=== PATIENT | male | born 2000 | race Caucasian/White ===

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

== ENCOUNTER 2022-05-17 11:51 | Inpatient (IN) | payer OTHER, SELFPAY ==
--- NOTE | ~2022-05-17 | CT_ITS ---
EXAMINATION: CT ABDOMEN AND PELVIS WITH CONTRAST CLINICAL INFORMATION: Abdominal pain, GI bleed COMPARISON: None TECHNIQUE: Multidetector volumetric images were obtained from the superior aspect of the liver through the pubic symphysis following administration 75 mL of Omnipaque 350 intravenous contrast. Sagittal and coronal reformatted images were obtained on the technologist's workstation. Oral contrast: No This CT examination was performed using dose optimization techniques as appropriate, variously including the following: *Automated exposure control *Adjustment of mA and/or kV according to patient size (this includes techniques or standardized protocols for targeted exams where dose is matched to indication/reason for exam; i.e. extremities or head) *Use of iterative reconstruction technique DLP: 277 mGy-cm FINDINGS: Significant respiratory motion limits exam particular evaluation of the upper abdominal solid organs and the lung bases. LUNG BASES: Unremarkable. ABDOMINAL AND PELVIC WALL: Unremarkable. LIVER AND BILIARY TREE: Unremarkable. GALLBLADDER: The gallbladder is inadequately evaluated due to motion, if any clinical concern for gallbladder pathology right upper quadrant ultrasound could be obtained. PANCREAS: Unremarkable. SPLEEN: Unremarkable. ADRENAL GLANDS: Unremarkable. KIDNEYS AND URETERS: Unremarkable. GASTROINTESTINAL TRACT: Moderate wall thickening involving the rectosigmoid colon raising suspicion for an infectious or inflammatory proctocolitis. No intraluminal contrast identified to suggest active bleeding however a multiphase exam would be more sensitive for evaluation of GI bleeding. The appendix is not identified however there are no focal right lower quadrant inflammatory changes to suggest appendicitis. VASCULAR: Unremarkable. LYMPH NODES/PERITONEUM: No lymphadenopathy. FREE FLUID: Small volume of free fluid in the pelvis. BLADDER: Unremarkable. PELVIC VISCERA: Unremarkable. OSSEOUS STRUCTURES: Unremarkable. CT/CT abdomen pelvis w IV con IMPRESSION: * Moderate wall thickening involving the rectosigmoid colon raising suspicion for an infectious or inflammatory colitis with associated small volume free fluid in the pelvis. No intraluminal contrast identified to suggest active bleeding however a multiphase exam would be more sensitive for evaluation of GI bleeding. * Significant respiratory motion limits exam particular evaluation of the upper abdominal solid organs and the lung bases. The gallbladder is inadequately evaluated due to motion, if any clinical concern for gallbladder pathology right upper quadrant ultrasound could be obtained.
[2022-05-17 12:01] VITALS: BP 111/72; PULSE 81; RESP 16; TEMP 36.8; O2SAT 100; BMI 15.4
--- NOTE | 2022-05-17 12:01 | ED.GIBLEED ---
HPI - GI Bleed General Chief complaint: Abdominal Pain Stated complaint: rectal bleeding, covid + Thursday Time Seen by Provider: 05/17/22 15:58 Related Data Home Medications Medication Instructions Recorded Confirmed aripiprazole 5 mg tablet 7.5 mg PO BID 02/19/21 05/17/22 clonidine HCl 0.1 mg tablet 0.2 mg PO BID 02/19/21 05/17/22 escitalopram oxalate 5 mg tablet 5 mg PO BID 02/19/21 05/17/22 methylphenidate HCl 54 mg 1 tab PO DAILY 02/19/21 05/17/22 tablet,extended release 24 hr (Concerta) lorazepam 0.5 mg tablet 1 tab PO TID 12/30/21 05/17/22 Allergies Allergy/AdvReac Type Severity Reaction Status Date / Time dog dander [DOGS] Allergy Unknown UNK Verified 05/17/22 12:01 milk [MILK] Allergy Unknown UNK Verified 05/17/22 12:01 PMFSH Past Medical History Medical History Autism Social History Social History Alcohol intake: never Patient Tobacco Use Status: Never used Tobacco Smoked in Last 30 Days: No Use of substances other than those prescribed or required for medical reasons: No Advance Directives: No Advance Directives Information Provided: Yes service: No Current occupational status: disabled Physical Exam Vital Signs: Vital Signs: Last Vital Signs Temp 97.5 F 05/18/22 08:23 Pulse 76 05/18/22 08:23 Resp 16 05/18/22 08:23 BP 105/66 05/18/22 08:23 Pulse Ox 100 05/18/22 08:23 O2 Del Method 05/18/22 08:23 BMI result Body Mass Index 15.4 Course Course Course Narrative: This is a rapid medical exam. Additional HPI/ROS/PE deferred to primary provider. 21 yo male diagnosed with COVID Thursday here with complaints of rectal bleeding noted this morning, has had diarrhea last few days. +abdominal pain (upper abdominal pain). No fevers, chills. Covid + with symptoms cough, rhinorrhea. No ac therapy. VSS. Will check labs, UA. Medications Administered Generic Name Dose Route Start Last Admin Trade Name Freq PRN Reason Stop Dose Admin Aripiprazole 7.5 mg 05/17/22 21:45 05/18/22 07:47 Aripiprazole 5 Mg Tablet PO Not Given BID DONNY Clonidine HCl 0.2 mg 05/17/22 21:45 05/18/22 07:47 Clonidine Hcl 0.2 Mg Tablet PO Not Given BID [facility] Protocol Escitalopram Oxalate 5 mg 05/17/22 21:45 05/18/22 07:47 Escitalopram Oxalate 5 Mg Tablet PO Not Given BID DONNY Metronidazole 500 mg in 100 mls @ 100 mls/hr 05/18/22 06:00 05/18/22 06:44 Flagyl IV Infused Q8H DONNY Infusion Dextrose/Lactated Ringer's 1,000 mls @ 60 mls/hr 05/18/22 07:45 05/18/22 10:42 [id number] IVCONT 60 mls/hr .[id number] DONNY Infusion Lorazepam 0.5 mg 05/17/22 21:45 05/18/22 07:47 Lorazepam 0.5 Mg Tablet PO Not Given TID DONNY Non-Formulary Medication 1 tab 05/18/22 09:00 05/18/22 07:47 Methylphenidate Hcl [Concerta] PO Not Given DAILY DONNY Pantoprazole Sodium 40 mg 05/18/22 06:30 05/18/22 05:40 Pantoprazole Sodium 40 Mg/10 Ml Vial IVPUSH 40 mg BID@0630,1630 DONNY Administration Sodium Chloride 3 ml 05/18/22 00:00 05/18/22 07:14 0.9 % Sodium Chloride Flush 3 Ml Syringe IVFLUSH Not Given QSHIFT [facility] Discontinued Medications Generic Name Dose Route Start Last Admin Trade Name Freq PRN Reason Stop Dose Admin Dextrose 25 gm 05/18/22 07:33 05/18/22 07:45 Dextrose 50 % 25 Gm/50 Ml Syringe IVPUSH 05/18/22 07:34 25 gm ONCE ONE Administration Ceftriaxone Sodium 1 gm/ 50 mls @ 100 mls/hr 05/17/22 19:56 05/17/22 20:53 Sodium Chloride IV 05/17/22 20:25 Infused ONCE ONE Infusion Metronidazole 500 mg in 100 mls @ 100 mls/hr 05/17/22 19:56 05/17/22 23:09 Flagyl IV 05/17/22 20:55 Infused ONCE ONE Infusion Sodium Chloride 250 mls @ 999 mls/hr 05/17/22 21:28 05/17/22 23:30 Ns IV 05/17/22 21:43 Infused .Q16M ONE Infusion Iohexol 100 ml 05/17/22 18:39 05/17/22 18:40 Iohexol 350 Mg/Ml 100 Ml Infus..Btl IV 05/17/22 18:40 75 ml ONCE ONE Administration Octreotide Acetate 50 mcg 05/17/22 17:20 05/17/22 18:00 Octreotide Acetate 100 Mcg/Ml Ampul IVPUSH 05/17/22 17:21 50 mcg ONCE ONE Administration Pantoprazole Sodium 40 mg 05/17/22 17:16 05/17/22 18:00 Pantoprazole Sodium 40 Mg/10 Ml Vial IVPUSH 05/17/22 17:17 40 mg ONCE ONE Administration MDM - GI Bleed Lab Data Result diagrams: 05/18/22 06:05 05/18/22 06:05 Labs: Lab Results 05/17/22 05/17/22 05/17/22 Range/Units 12: 12: 12:22 WBC 3.8 L (4.8-10.8) X10*3/uL RBC 4.10 L (4.60-5.80) X10*6/uL Hgb 10.9 L (14.0-18.0) g/dl Hct 33.5 L (42.0-52.0) % MCV 81.7 (80.0-98.0) fL MCH 26.6 L (27.0-33.0) pg MCHC 32.5 (31.0-36.0) g/dl RDW 14.4 (11.0-16.0) % Plt Count 312 D (160-400) X10*3/uL MPV 9.2 L (9.4-12.4) fL Immature Gran % (Auto) 0.3 (0.0-0.4) % Neut % (Auto) 52.4 (45-73) % Lymph % (Auto) 40.6 H (20-40) % [place] % (Auto) 5.6 (2-11) % Eos % (Auto) 0.3 (0-4) % Baso % (Auto) 0.8 (0-2) % Lymph # (Auto) 1.5 (1.2-4.9) X10*3/uL [place] # (Auto) 0.2 (0.1-1.2) X10*3/uL Eos # (Auto) 0.0 (0.0-0.4) X10*3/uL Baso # (Auto) 0.0 (0.0-0.2) X10*3/uL Abs Immat Gran (auto) 0.01 (0.00-0.03) X10*3/uL Absolute Neuts (auto) 2.0 (2.0-8.3) x10*3/uL Absolute Nucleated RBC 0.000 (0.0-0.012) X10*3/uL Nucleated RBC % (auto) 0.0 (0.0-0.2) /100WBC PT 12.7 (10.0-13.1) SEC INR 1.1 (0.9-1.1) Sodium 134 L (135-145) mmol/L Potassium 4.0 (3.3-5.1) mmol/L Chloride 99 (96-108) mmol/L Carbon Dioxide 30 H (22-29) mmol/L Anion Gap 9 L (12-20) BUN 15 (9-16) mg/dL Creatinine 0.81 (0.5-1.4) mg/dL Estim Creat Clear Calc 92.5 Estimated GFR > 60 Random Glucose 76 (60-115) mg/dL Calcium 9.4 (8.4-10.2) mg/dL Total Bilirubin 0.6 (0.0-1.0) mg/dL Direct Bilirubin 0.2 (0.0-0.5) mg/dL AST 20 (5-37) U/L ALT 17 (0-40) U/L Alkaline Phosphatase 86 (39-117) U/L Total Protein 7.1 (6.5-8.0) g/dL Albumin 4.3 (3.5-5.0) g/dL Urine Color Urine Appearance Urine pH (5.0-9.0) Ur Specific [place] (1.005-1.025) Urine Protein (Neg-Trace) mg/dL Urine Glucose (UA) (Negative) mg/dL Urine Ketones (Negative) mg/dL Urine Blood (Negative) Urine Nitrite (Negative) Ur Leukocyte Esterase (Negative) Stool Occult Blood (NEGATIVE) COVID-19 (KATYA) (Negative) COVID-19 [facility] Blood Type Antibody Screen 05/17/22 05/17/22 05/17/22 Range/Units 17:31 17:31 17:31 WBC (4.8-10.8) X10*3/uL RBC (4.60-5.80) X10*6/uL Hgb (14.0-18.0) g/dl Hct (42.0-52.0) % MCV (80.0-98.0) fL MCH (27.0-33.0) pg MCHC (31.0-36.0) g/dl RDW (11.0-16.0) % Plt Count (160-400) X10*3/uL MPV (9.4-12.4) fL Immature Gran % (Auto) (0.0-0.4) % Neut % (Auto) (45-73) % Lymph % (Auto) (20-40) % [place] % (Auto) (2-11) % Eos % (Auto) (0-4) % Baso % (Auto) (0-2) % Lymph # (Auto) (1.2-4.9) X10*3/uL [place] # (Auto) (0.1-1.2) X10*3/uL Eos # (Auto) (0.0-0.4) X10*3/uL Baso # (Auto) (0.0-0.2) X10*3/uL Abs Immat Gran (auto) (0.00-0.03) X10*3/uL Absolute Neuts (auto) (2.0-8.3) x10*3/uL Absolute Nucleated RBC (0.0-0.012) X10*3/uL Nucleated RBC % (auto) (0.0-0.2) /100WBC PT (10.0-13.1) SEC INR (0.9-1.1) Sodium (135-145) mmol/L Potassium (3.3-5.1) mmol/L Chloride (96-108) mmol/L Carbon Dioxide (22-29) mmol/L Anion Gap (12-20) BUN (9-16) mg/dL Creatinine (0.5-1.4) mg/dL Estim Creat Clear Calc Estimated GFR Random Glucose (60-115) mg/dL Calcium (8.4-10.2) mg/dL Total Bilirubin (0.0-1.0) mg/dL Direct Bilirubin (0.0-0.5) mg/dL AST (5-37) U/L ALT (0-40) U/L Alkaline Phosphatase (39-117) U/L Total Protein (6.5-8.0) g/dL Albumin (3.5-5.0) g/dL Urine Color Yellow Urine Appearance Clear Urine pH 7.0 (5.0-9.0) Ur Specific [place] 1.020 (1.005-1.025) Urine Protein Negative (Neg-Trace) mg/dL Urine Glucose (UA) Negative (Negative) mg/dL Urine Ketones Trace (Negative) mg/dL Urine Blood Negative (Negative) Urine Nitrite Negative (Negative) Ur Leukocyte Esterase Negative (Negative) Stool Occult Blood POSITIVE (NEGATIVE) COVID-19 (KATYA) Positive A (Negative) COVID-19 Clin Com See Note Blood Type Antibody Screen 05/17/22 Range/Units 17:40 WBC (4.8-10.8) X10*3/uL RBC (4.60-5.80) X10*6/uL Hgb (14.0-18.0) g/dl Hct (42.0-52.0) % MCV (80.0-98.0) fL MCH (27.0-33.0) pg MCHC (31.0-36.0) g/dl RDW (11.0-16.0) % Plt Count (160-400) X10*3/uL MPV (9.4-12.4) fL Immature Gran % (Auto) (0.0-0.4) % Neut % (Auto) (45-73) % Lymph % (Auto) (20-40) % [place] % (Auto) (2-11) % Eos % (Auto) (0-4) % Baso % (Auto) (0-2) % Lymph # (Auto) (1.2-4.9) X10*3/uL [place] # (Auto) (0.1-1.2) X10*3/uL Eos # (Auto) (0.0-0.4) X10*3/uL Baso # (Auto) (0.0-0.2) X10*3/uL Abs Immat Gran (auto) (0.00-0.03) X10*3/uL Absolute Neuts (auto) (2.0-8.3) x10*3/uL Absolute Nucleated RBC (0.0-0.012) X10*3/uL Nucleated RBC % (auto) (0.0-0.2) /100WBC PT (10.0-13.1) SEC INR (0.9-1.1) Sodium (135-145) mmol/L Potassium (3.3-5.1) mmol/L Chloride (96-108) mmol/L Carbon Dioxide (22-29) mmol/L Anion Gap (12-20) BUN (9-16) mg/dL Creatinine (0.5-1.4) mg/dL Estim Creat Clear Calc Estimated GFR Random Glucose (60-115) mg/dL Calcium (8.4-10.2) mg/dL Total Bilirubin (0.0-1.0) mg/dL Direct Bilirubin (0.0-0.5) mg/dL AST (5-37) U/L ALT (0-40) U/L Alkaline Phosphatase (39-117) U/L Total Protein (6.5-8.0) g/dL Albumin (3.5-5.0) g/dL Urine Color Urine Appearance Urine pH (5.0-9.0) Ur Specific [place] (1.005-1.025) Urine Protein (Neg-Trace) mg/dL Urine Glucose (UA) (Negative) mg/dL Urine Ketones (Negative) mg/dL Urine Blood (Negative) Urine Nitrite (Negative) Ur Leukocyte Esterase (Negative) Stool Occult Blood (NEGATIVE) COVID-19 (KATYA) (Negative) COVID-19 Clin Com Blood Type O Positive Antibody Screen NEGATIVE Discharge Plan Discharge Clinical Impression: Colitis Patient Disposition: Admitted As Inpatient
[2022-05-17 12:27] LABS: MANUAL DIFF FLAG NO
[2022-05-17 12:31] LABS: Basophils Percent Auto 0.8 % (0-2); Eosinophils Percent Auto 0.3 % (0-4); Hematocrit 33.5 % (42.0-52.0); Hemoglobin 10.9 g/dl (14.0-18.0); Imm Gran Abs Auto 0.01 X10*3/uL (0.00-0.03); Imm Gran Pct Auto 0.3 % (0.0-0.4); Lymphocytes Absolute Auto 1.5 X10*3/uL (1.2-4.9); Lymphocytes Percent Auto 40.6 % (20-40); Mean Corpuscular HGB Conc 32.5 g/dl (31.0-36.0); Mean Corpuscular Hemoglobin 26.6 pg (27.0-33.0); Mean Corpuscular Volume 81.7 fL (80.0-98.0); Mean Platelet Volume 9.2 fL (9.4-12.4); Monocytes Absolute Auto 0.2 X10*3/uL (0.1-1.2); Monocytes Percent Auto 5.6 % (2-11); Neutrophils Percent Auto 52.4 % (45-73); Platelet Count 312 X10*3/uL (160-400); Red Cell Distribution Width 14.4 % (11.0-16.0); White Blood Count 3.8 X10*3/uL (4.8-10.8)
[2022-05-17 12:36] LABS: INTERNATIONAL NORM RATIO 1.1 (0.9-1.1); Prothrombin Time 12.7 SEC (10.0-13.1)
[2022-05-17 12:55] LABS: Alanine Aminotransferase 17 U/L (0-40); Albumin Level 4.3 g/dL (3.5-5.0); Alkaline Phosphatase 86 U/L (39-117); Anion Gap 9 (12-20); Aspartate Amino Transferase 20 U/L (5-37); Bilirubin Direct 0.2 mg/dL (0.0-0.5); Bilirubin Total 0.6 mg/dL (0.0-1.0); Blood Urea Nitrogen 15 mg/dL (9-16); Calcium 9.4 mg/dL (8.4-10.2); Carbon Dioxide 30 mmol/L (22-29); Chloride 99 mmol/L (96-108); Creatinine Clr Calc Pharmacy 92.5; Estimated Glomerular Filt Rate > 60; Glucose Random 76 mg/dL (60-115); Sodium 134 mmol/L (135-145); Total Protein 7.1 g/dL (6.5-8.0)
--- NOTE | 2022-05-17 17:17 | ED.ABDPAIN ---
HPI - Abdominal Pain General Chief Complaint: Abdominal Pain Stated Complaint: rectal bleeding, covid + Thursday Time Seen by Provider: 05/17/22 15:58 History of Present Illness HPI narrative: Patient is a 21-year-old male with a history of marked his arm. Tested positive for COVID on Thursday. Coughing symptoms actually improved. Since yesterday patient noticed diarrhea. This morning started having bloody diarrhea. Was blood clot. Mom stated multiple episodes. Generalized malaise weakness. No history of GI bleed in the past. Related Data Home Medications Medication Instructions Recorded Confirmed aripiprazole 5 mg tablet 7.5 mg PO BID 02/19/21 05/17/22 clonidine HCl 0.1 mg tablet 0.2 mg PO BID 02/19/21 05/17/22 escitalopram oxalate 5 mg tablet 5 mg PO BID 02/19/21 05/17/22 methylphenidate HCl 54 mg 1 tab PO DAILY 02/19/21 05/17/22 tablet,extended release 24 hr (Concerta) lorazepam 0.5 mg tablet 1 tab PO TID 12/30/21 05/17/22 Allergies Allergy/AdvReac Type Severity Reaction Status Date / Time Chocolate Allergy Unknown Hives Unverified 05/17/22 12:01 dog dander [DOGS] Allergy Unknown UNK Verified 05/17/22 12:01 milk [MILK] Allergy Unknown UNK Verified 05/17/22 12:01 Review of Systems Review of Systems Positive generalized malaise. Positive bloody stool positive cough Yes all other systems are reviewed and are negative [facility] Social History Social History Alcohol intake: never Patient Tobacco Use Status: Never used Tobacco Smoked in Last 30 Days: No Use of substances other than those prescribed or required for medical reasons: No Advance Directives: No Advance Directives Information Provided: Yes Physical Exam ED Vital Signs: Vital Signs - 24 hr 05/17/22 12:01 05/17/22 17:18 05/17/22 19:55 Temperature 98.2 F 98.2 F 97.9 F Pulse Rate 81 87 86 Respiratory Rate 16 16 20 Blood Pressure 111/72 117/84 117/77 Pulse Oximetry 100 100 Oxygen Delivery Method Room Air Room Air Room Air BMI result Body Mass Index 15.4 Appearance: Alert. Oriented X3. No acute distress. Eyes: Pupils equal, round and reactive to light. ENT: Pharynx normal. Neck: Normal inspection. Neck supple. No lymph nodes noted. No crepitus CVS: Normal heart rate and rhythm. Pulses normal. Normal S1 and S2 Respiratory: No respiratory distress. Breath sounds normal. No Wheezing. No rales Abdomen: Soft and nontender. No rigidity. No distention. good BS x4 Rectal exam done with tech present grossly bloody stool. Skin: Skin warm and dry. Normal skin color. Normal skin turgor. Extremities: No lower extremity edema. Neurovascular intact to all extremities. No Lacerations. No Rash Neuro: Oriented X 3. No motor deficit. No sensory deficit. Moving all extermities. No slurred speech Medications Administered Discontinued Medications Generic Name Dose Route Start Last Admin Trade Name Freq PRN Reason Stop Dose Admin Iohexol 100 ml 05/17/22 18:39 05/17/22 18:40 Iohexol 350 Mg/Ml 100 Ml Infus..Btl IV 05/17/22 18:40 75 ml ONCE ONE Administration Octreotide Acetate 50 mcg 05/17/22 17:20 05/17/22 18:00 Octreotide Acetate 100 Mcg/Ml Ampul IVPUSH 05/17/22 17:21 50 mcg ONCE ONE Administration Pantoprazole Sodium 40 mg 05/17/22 17:16 05/17/22 18:00 Pantoprazole Sodium 40 Mg/10 Ml Vial IVPUSH 05/17/22 17:17 40 mg ONCE ONE Administration MDM - Abdominal Pain MDM Narrative Medical decision making narrative: Positive generalized malaise weakness significant bleeding as per the picture shown by mom. Patient had multiple episodes of dark red blood with a funny smell. Question upper GI bleed. No history of alcohol use. Denies using any NSAIDs. Will start patient on a PPI nevertheless. CT scan of the abdomen pending. Will most likely require admission. CT consistent with colitis. Patient to be admitted. Significant drop in hemoglobin from baseline 14-10.9. Will need further monitoring. Rocephin and Flagyl started. Case discussed with hospitalist team for admission. Lab Data Result diagrams: 05/17/22 12:21 05/17/22 12:22 Labs: Lab Results 05/17/22 05/17/22 05/17/22 Range/Units 12:21 12:22 12:22 WBC 3.8 L (4.8-10.8) X10*3/uL RBC 4.10 L (4.60-5.80) X10*6/uL Hgb 10.9 L (14.0-18.0) g/dl Hct 33.5 L (42.0-52.0) % MCV 81.7 (80.0-98.0) fL MCH 26.6 L (27.0-33.0) pg MCHC 32.5 (31.0-36.0) g/dl RDW 14.4 (11.0-16.0) % Plt Count 312 D (160-400) X10*3/uL MPV 9.2 L (9.4-12.4) fL Immature Gran % (Auto) 0.3 (0.0-0.4) % Neut % (Auto) 52.4 (45-73) % Lymph % (Auto) 40.6 H (20-40) % [place] % (Auto) 5.6 (2-11) % Eos % (Auto) 0.3 (0-4) % Baso % (Auto) 0.8 (0-2) % Lymph # (Auto) 1.5 (1.2-4.9) X10*3/uL [place] # (Auto) 0.2 (0.1-1.2) X10*3/uL Eos # (Auto) 0.0 (0.0-0.4) X10*3/uL Baso # (Auto) 0.0 (0.0-0.2) X10*3/uL Abs Immat Gran (auto) 0.01 (0.00-0.03) X10*3/uL Absolute Neuts (auto) 2.0 (2.0-8.3) x10*3/uL Absolute Nucleated RBC 0.000 (0.0-0.012) X10*3/uL Nucleated RBC % (auto) 0.0 (0.0-0.2) /100WBC PT 12.7 (10.0-13.1) SEC INR 1.1 (0.9-1.1) Sodium 134 L (135-145) mmol/L Potassium 4.0 (3.3-5.1) mmol/L Chloride 99 (96-108) mmol/L Carbon Dioxide 30 H (22-29) mmol/L Anion Gap 9 L (12-20) BUN 15 (9-16) mg/dL Creatinine 0.81 (0.5-1.4) mg/dL Estim Creat Clear Calc 92.5 Estimated GFR > 60 Random Glucose 76 (60-115) mg/dL Calcium 9.4 (8.4-10.2) mg/dL Total Bilirubin 0.6 (0.0-1.0) mg/dL Direct Bilirubin 0.2 (0.0-0.5) mg/dL AST 20 (5-37) U/L ALT 17 (0-40) U/L Alkaline Phosphatase 86 (39-117) U/L Total Protein 7.1 (6.5-8.0) g/dL Albumin 4.3 (3.5-5.0) g/dL Urine Color Urine Appearance Urine pH (5.0-9.0) Ur Specific [place] (1.005-1.025) Urine Protein (Neg-Trace) mg/dL Urine Glucose (UA) (Negative) mg/dL Urine Ketones (Negative) mg/dL Urine Blood (Negative) Urine Nitrite (Negative) Ur Leukocyte Esterase (Negative) Stool Occult Blood (NEGATIVE) COVID-19 (KATYA) (Negative) COVID-19 Clin Com Blood Type Antibody Screen 05/17/22 05/17/22 05/17/22 Range/Units 17:31 17:31 17:31 WBC (4.8-10.8) X10*3/uL RBC (4.60-5.80) X10*6/uL Hgb (14.0-18.0) g/dl Hct (42.0-52.0) % MCV (80.0-98.0) fL MCH (27.0-33.0) pg MCHC (31.0-36.0) g/dl RDW (11.0-16.0) % Plt Count (160-400) X10*3/uL MPV (9.4-12.4) fL Immature Gran % (Auto) (0.0-0.4) % Neut % (Auto) (45-73) % Lymph % (Auto) (20-40) % [place] % (Auto) (2-11) % Eos % (Auto) (0-4) % Baso % (Auto) (0-2) % Lymph # (Auto) (1.2-4.9) X10*3/uL [place] # (Auto) (0.1-1.2) X10*3/uL Eos # (Auto) (0.0-0.4) X10*3/uL Baso # (Auto) (0.0-0.2) X10*3/uL Abs Immat Gran (auto) (0.00-0.03) X10*3/uL Absolute Neuts (auto) (2.0-8.3) x10*3/uL Absolute Nucleated RBC (0.0-0.012) X10*3/uL Nucleated RBC % (auto) (0.0-0.2) /100WBC PT (10.0-13.1) SEC INR (0.9-1.1) Sodium (135-145) mmol/L Potassium (3.3-5.1) mmol/L Chloride (96-108) mmol/L Carbon Dioxide (22-29) mmol/L Anion Gap (12-20) BUN (9-16) mg/dL Creatinine (0.5-1.4) mg/dL Estim Creat Clear Calc Estimated GFR Random Glucose (60-115) mg/dL Calcium (8.4-10.2) mg/dL Total Bilirubin (0.0-1.0) mg/dL Direct Bilirubin (0.0-0.5) mg/dL AST (5-37) U/L ALT (0-40) U/L Alkaline Phosphatase (39-117) U/L Total Protein (6.5-8.0) g/dL Albumin (3.5-5.0) g/dL Urine Color Yellow Urine Appearance Clear Urine pH 7.0 (5.0-9.0) Ur Specific [place] 1.020 (1.005-1.025) Urine Protein Negative (Neg-Trace) mg/dL Urine Glucose (UA) Negative (Negative) mg/dL Urine Ketones Trace (Negative) mg/dL Urine Blood Negative (Negative) Urine Nitrite Negative (Negative) Ur Leukocyte Esterase Negative (Negative) Stool Occult Blood POSITIVE (NEGATIVE) COVID-19 (KATYA) Positive A (Negative) COVID-19 Clin Com See Note Blood Type Antibody Screen 05/17/22 Range/Units 17:40 WBC (4.8-10.8) X10*3/uL RBC (4.60-5.80) X10*6/uL Hgb (14.0-18.0) g/dl Hct (42.0-52.0) % MCV (80.0-98.0) fL MCH (27.0-33.0) pg MCHC (31.0-36.0) g/dl RDW (11.0-16.0) % Plt Count (160-400) X10*3/uL MPV (9.4-12.4) fL Immature Gran % (Auto) (0.0-0.4) % Neut % (Auto) (45-73) % Lymph % (Auto) (20-40) % [place] % (Auto) (2-11) % Eos % (Auto) (0-4) % Baso % (Auto) (0-2) % Lymph # (Auto) (1.2-4.9) X10*3/uL [place] # (Auto) (0.1-1.2) X10*3/uL Eos # (Auto) (0.0-0.4) X10*3/uL Baso # (Auto) (0.0-0.2) X10*3/uL Abs Immat Gran (auto) (0.00-0.03) X10*3/uL Absolute Neuts (auto) (2.0-8.3) x10*3/uL Absolute Nucleated RBC (0.0-0.012) X10*3/uL Nucleated RBC % (auto) (0.0-0.2) /100WBC PT (10.0-13.1) SEC INR (0.9-1.1) Sodium (135-145) mmol/L Potassium (3.3-5.1) mmol/L Chloride (96-108) mmol/L Carbon Dioxide (22-29) mmol/L Anion Gap (12-20) BUN (9-16) mg/dL Creatinine (0.5-1.4) mg/dL Estim Creat Clear Calc Estimated GFR Random Glucose (60-115) mg/dL Calcium (8.4-10.2) mg/dL Total Bilirubin (0.0-1.0) mg/dL Direct Bilirubin (0.0-0.5) mg/dL AST (5-37) U/L ALT (0-40) U/L Alkaline Phosphatase (39-117) U/L Total Protein (6.5-8.0) g/dL Albumin (3.5-5.0) g/dL Urine Color Urine Appearance Urine pH (5.0-9.0) Ur Specific [place] (1.005-1.025) Urine Protein (Neg-Trace) mg/dL Urine Glucose (UA) (Negative) mg/dL Urine Ketones (Negative) mg/dL Urine Blood (Negative) Urine Nitrite (Negative) Ur Leukocyte Esterase (Negative) Stool Occult Blood (NEGATIVE) COVID-19 (KATYA) (Negative) COVID-19 Clin Com Blood Type O Positive Antibody Screen NEGATIVE Discharge Plan Discharge Clinical Impression: Colitis Patient Disposition: Admitted As Inpatient Prescriptions: No Action clonidine HCl 0.1 mg tablet 0.2 mg PO BID Rx Instructions: 1/2 tablet at 0830 and 1530, 2 tablets at bedtime methylphenidate HCl [Concerta] 54 mg tablet extended release 24hr 1 tab PO DAILY aripiprazole 5 mg tablet 7.5 mg PO BID Rx Instructions: total daily dose: 15 mg (7.5 mg bid) escitalopram oxalate 5 mg tablet 5 mg PO BID lorazepam 0.5 mg tablet 1 tab PO TID
[2022-05-17 17:18] VITALS: BP 117/84; PULSE 87; RESP 16; TEMP 36.8; O2SAT 100
[2022-05-17 17:42] LABS: Appearance Urine Clear; Color Urine Yellow; Glucose Urine UA Negative (Negative); Leukocyte Esterase Urine Negative (Negative); Nitrite Urine Negative (Negative); OBS Int Ctl Valid YES; OBS1 POSITIVE (NEGATIVE); Urine Blood Negative (Negative); Urine Ketones Trace mg/dL (Negative); Urine Protein Negative (Neg-Trace)
[2022-05-17 17:51] LABS: COVID-19 Test Positive (Negative); IDNOW Serial# 16C4AD1C
[2022-05-17] MEDS: Octreotide Acetate 100 MCG/ML AMPUL 50 MCG IVPUSH (18:00)
[2022-05-17] MEDS: Pantoprazole Sodium 40 MG/10 ML VIAL IVPUSH (18:00)
[2022-05-17] MEDS: iohexoL 350 MG/ML 100 ML INFUS..BTL IV (18:40)
--- NOTE | 2022-05-17 19:43 | PC.NURSE ---
med rec complete.
[2022-05-17 19:55] VITALS: BP 117/77; PULSE 86; RESP 20; TEMP 36.6
[2022-05-17] MEDS: cefTRIAXone sodium 1 GM in 0.9 % Sodium Chloride 50 ML IV (20:17)
[2022-05-17] MEDS: metroNIDAZOLE/NS 500 MG/100 ML PIGGYBACK 100 MG IV (20:51)
[2022-05-17 21:07] VITALS: BP 113/71; PULSE 79; RESP 16; TEMP 36.7; O2SAT 96
--- NOTE | 2022-05-17 21:21 | PM.IMHP ---
History of Present Illness Date of Service: 05/17/22 Chief Complaint: GI bleed This is a 21-year-old male with pertinent history of autism with behavioral disturbances, who was brought to the emergency department by his mother for evaluation of bleeding per rectum. As per the mother, patient tested positive for COVID-19 on Thursday. His fever, chills and upper respiratory symptoms resolved over the course of 2-3 days. Patient started having abdominal discomfort, right upper quadrant, intermittent and without any relieving or aggravating factors on the day of presentation. It was associated with bleeding per rectum. No history of similar complaints in the past. Does not take NSAIDs for pain chronically. Never has had a GI scope. Patient denies chest discomfort, palpitation, shortness of breath, changes in urinary habits In the emergency department stool occult blood test was positive. Imaging was concerning for colitis. Review of Systems Constitutional: Constitutional: Reports fatigue and Reports malaise Cardiovascular: Cardiovascular: Reports no additional cardiovascular complaints Respiratory: Respiratory: Reports no additional respiratory complaints Gastrointestinal: Gastrointestinal: Reports hematochezia and Reports loose stools Endocrine: Endocrine: Reports fatigue [facility] Medical History Autism Social History Alcohol intake: never Patient Tobacco Use Status: Never used Tobacco Smoked in Last 30 Days: No Use of substances other than those prescribed or required for medical reasons: No Advance Directives: No Advance Directives Information Provided: Yes Meds Allergies Allergy/AdvReac Type Severity Reaction Status Date / Time dog dander [DOGS] Allergy Unknown UNK Verified 05/17/22 12:01 milk [MILK] Allergy Unknown UNK Verified 05/17/22 12:01 Active Medications: Current Medications Acetaminophen (Acetaminophen 325 Mg Tablet) 650 mg PO Q6H PRN PRN Reason: Pain, Mild (Pain Scale 1-3) Melatonin (Melatonin 3 Mg Tablet) 6 mg PO BEDTIME PRN PRN Reason: Insomnia Ondansetron HCl (Ondansetron Hcl 4 Mg/2 Ml Vial) 4 mg IVPUSH Q8H PRN PRN Reason: Nausea and Vomiting Pantoprazole Sodium (Pantoprazole Sodium 40 Mg/10 Ml Vial) 40 mg IVPUSH BID@0630,1630 [facility] Pharmacy Consult (Consult Rx Perform Med Rec) 1 each MISCELLANE ONCE PRN PRN Reason: Consult order Sodium Chloride (0.9 % Sodium Chloride Flush 3 Ml Syringe) 3 ml IVFLUSH QSHIFT [facility] Home Medications Medication Instructions Recorded Confirmed Last Taken Type aripiprazole 5 mg tablet 7.5 mg PO BID 02/19/21 05/17/22 12/30/21 History clonidine HCl 0.1 mg tablet 0.2 mg PO BID 02/19/21 05/17/22 12/29/21 History escitalopram oxalate 5 mg tablet 5 mg PO BID 02/19/21 05/17/22 12/30/21 History methylphenidate HCl 54 mg 1 tab PO DAILY 02/19/21 05/17/22 12/30/21 History tablet,extended release 24 hr (Concerta) lorazepam 0.5 mg tablet 1 tab PO TID 12/30/21 05/17/22 12/30/21 History Physical Exam Vital Signs and Narrative: Vital Signs: Last Vital Signs Temp 98.1 F 05/17/22 21:07 Pulse 79 05/17/22 21:07 Resp 16 05/17/22 21:07 BP 113/71 05/17/22 21:07 Pulse Ox 96 05/17/22 21:07 O2 Del Method 05/17/22 21:07 BMI result Body Mass Index 15.4 Young male lying in bed in no distress Neck supple, no JVD Regular rate and rhythm, S1-S2 heard Regular breath sounds bilaterally, no wheezing or crackles appreciated Abdomen with right upper quadrant tenderness, no guarding, no rigidity, no rebound tenderness Patient is awake, alert and oriented to place and person ; no focal motor deficit Psych: Normal mood No pedal edema Results Labs CBC and Chem 7: 05/17/22 12:21 05/17/22 12:22 Labs: Laboratory Results - last 24 hr 05/17/22 05/17/22 05/17/22 12: 12:22 12:22 MCV 81.7 MCH 26.6 L MCHC 32.5 RDW 14.4 Plt Count 312 D MPV 9.2 L Immature Gran % (Auto) 0.3 Neut % (Auto) 52.4 Lymph % (Auto) 40.6 H [place] % (Auto) 5.6 Eos % (Auto) 0.3 Baso % (Auto) 0.8 Lymph # (Auto) 1.5 Hoke # (Auto) 0.2 Eos # (Auto) 0.0 Baso # (Auto) 0.0 Abs Immat Gran (auto) 0.01 Absolute Neuts (auto) 2.0 Absolute Nucleated RBC 0.000 Nucleated RBC % (auto) 0.0 PT 12.7 INR 1.1 Anion Gap 9 L Estim Creat Clear Calc 92.5 Estimated GFR > 60 Random Glucose 76 Calcium 9.4 Total Bilirubin 0.6 Direct Bilirubin 0.2 AST 20 ALT 17 Alkaline Phosphatase 86 Total Protein 7.1 Albumin 4.3 Urine Color Urine Appearance Urine pH Ur Specific [place] Urine Protein Urine Glucose (UA) Urine Ketones Urine Blood Urine Nitrite Ur Leukocyte Esterase Stool Occult Blood COVID-19 (KATYA) COVID-[employer] Blood Type Antibody Screen 05/17/22 05/17/22 05/17/22 17:31 17:31 17:31 MCV MCH MCHC RDW Plt Count MPV Immature Gran % (Auto) Neut % (Auto) Lymph % (Auto) Hoke % (Auto) Eos % (Auto) Baso % (Auto) Lymph # (Auto) Hoke # (Auto) Eos # (Auto) Baso # (Auto) Abs Immat Gran (auto) Absolute Neuts (auto) Absolute Nucleated RBC Nucleated RBC % (auto) PT INR Anion Gap Estim Creat Clear Calc Estimated GFR Random Glucose Calcium Total Bilirubin Direct Bilirubin AST ALT Alkaline Phosphatase Total Protein Albumin Urine Color Yellow Urine Appearance Clear Urine pH 7.0 Ur Specific [place] 1.020 Urine Protein Negative Urine Glucose (UA) Negative Urine Ketones Trace Urine Blood Negative Urine Nitrite Negative Ur Leukocyte Esterase Negative Stool Occult Blood POSITIVE COVID-19 (KATYA) Positive A COVID-19 [employer] See Note Blood Type Antibody Screen 05/17/22 17:40 MCV MCH MCHC RDW Plt Count MPV Immature Gran % (Auto) Neut % (Auto) Lymph % (Auto) Hoke % (Auto) Eos % (Auto) Baso % (Auto) Lymph # (Auto) [place] # (Auto) Eos # (Auto) Baso # (Auto) Abs Immat Gran (auto) Absolute Neuts (auto) Absolute Nucleated RBC Nucleated RBC % (auto) PT INR Anion Gap Estim Creat Clear Calc Estimated GFR Random Glucose Calcium Total Bilirubin Direct Bilirubin AST ALT Alkaline Phosphatase Total Protein Albumin Urine Color Urine Appearance Urine pH Ur Specific [place] Urine Protein Urine Glucose (UA) Urine Ketones Urine Blood Urine Nitrite Ur Leukocyte Esterase Stool Occult Blood COVID-19 (KATYA) COVID-19 Clin Com Blood Type O Positive Antibody Screen NEGATIVE Imaging Radiologist's Impressions: Impressions Abdomen/Pelvis CT 05/17/22 18:52 IMPRESSION: * Moderate wall thickening involving the rectosigmoid colon raising suspicion for an infectious or inflammatory colitis with associated small volume free fluid in the pelvis. No intraluminal contrast identified to suggest active bleeding however a multiphase exam would be more sensitive for evaluation of GI bleeding. * Significant respiratory motion limits exam particular evaluation of the upper abdominal solid organs and the lung bases. The gallbladder is inadequately evaluated due to motion, if any clinical concern for gallbladder pathology right upper quadrant ultrasound could be obtained. Assessment and Plan (1) Colitis: Status: Acute (2) Autism: Status: Acute (3) Bleeding per rectum: Status: Acute Plan This is a 21-year-old male with pertinent history of autism with behavioral disturbances, who was brought to the emergency department by his mother for evaluation of bleeding per rectum. #. Acute gastrointestinal bleeding #. Imaging with rectosigmoid colitis -will admit patient and initiate Protonix 40 mg IV b.i.d.. Initiating empiric IV antibiotics. Resuscitated with IV crystalloid in the ER. Consulting GI, appreciate assistance. Will keep NPO after midnight. Will monitor H&H #. COVID positive test date: 05/12 -maintaining normal oxygen saturation on room air. No indication for remdesivir or steroids #. Autism with behavioral disturbance -continue home p.o. medications DVT prophylaxis: Defer Lovenox in the setting of GI bleed Full code NPO after midnight Admit as inpatient and will require two night minimum hospital stay for close monitoring of H&H/hemodynamic status and IV antibiotics. GI consult pending Quality Stroke Does the patient have a stroke diagnosis?: No VTE Prior VTE?: No VTE Risk Level:: Medical - low VTE Device Contraindication: Treatment Not Indicated VTE Drug Contraindication: Treatment Not Indicated
[2022-05-17] MEDS: LORazepam 0.5 MG TABLET PO (22:42)
[2022-05-17] MEDS: cloNIDine HCL 0.2 MG TABLET PO (22:42)
[2022-05-17] MEDS: Escitalopram Oxalate 5 MG TABLET PO (22:42)
[2022-05-17] MEDS: ARIPiprazole 5 MG TABLET 7.5 MG PO (22:42)
[2022-05-17] MEDS: 0.9 % Sodium Chloride 250 ML 999 ML IV (22:46)
--- NOTE | 2022-05-17 23:23 | PC.NURSE ---
pt's mother at bedside at this time. urinal provided if pt needs. instructed pt and mother to utilize call norman if any need comes up. pt medicated according to mar.
[2022-05-18] MEDS: 0.9 % Sodium Chloride Flush 3 ML SYRINGE IVFLUSH ×2 (01:27→23:21)
--- NOTE | 2022-05-18 05:25 | PC.NURSE ---
assumed care of patient at this time. placed on engine monitor. VS stable. covid 19 positive, precautions in place. mom at the bedside.
[2022-05-18] MEDS: Pantoprazole Sodium 40 MG/10 ML VIAL IVPUSH ×2 (05:40→16:41)
[2022-05-18] MEDS: metroNIDAZOLE/NS 500 MG/100 ML PIGGYBACK 100 MG IV ×3 (05:40→23:21)
[2022-05-18 05:55] VITALS: BP 96/62; PULSE 85; RESP 21; TEMP 36.5; O2SAT 99
[2022-05-18 06:53] LABS: MANUAL DIFF FLAG NO
[2022-05-18 06:59] LABS: Basophils Percent Auto 0.6 % (0-2); Eosinophils Percent Auto 0.6 % (0-4); Hematocrit 32.8 % (42.0-52.0); Hemoglobin 10.8 g/dl (14.0-18.0); Imm Gran Abs Auto 0.02 X10*3/uL (0.00-0.03); Imm Gran Pct Auto 0.4 % (0.0-0.4); Lymphocytes Absolute Auto 1.2 X10*3/uL (1.2-4.9); Mean Corpuscular HGB Conc 32.9 g/dl (31.0-36.0); Mean Corpuscular Hemoglobin 26.9 pg (27.0-33.0); Mean Corpuscular Volume 81.6 fL (80.0-98.0); Mean Platelet Volume 10.1 fL (9.4-12.4); Monocytes Absolute Auto 0.4 X10*3/uL (0.1-1.2); Monocytes Percent Auto 7.8 % (2-11); Neutrophils Absolute Auto 3.6 x10*3/uL (2.0-8.3); Neutrophils Percent Auto 68.6 % (45-73); Platelet Count 310 X10*3/uL (160-400); Red Blood Count 4.02 X10*6/uL (4.60-5.80); Red Cell Distribution Width 14.1 % (11.0-16.0); White Blood Count 5.2 X10*3/uL (4.8-10.8)
[2022-05-18 07:27] LABS: Glucose, Whole Blood 66 mg/dL (60-115)
[2022-05-18] MEDS: Dextrose 50 % 25 GM/50 ML SYRINGE IVPUSH (07:45)
[2022-05-18] MEDS: Dextrose 5 % and Lactated Ring 1,000 ML 100 ML IVCONT (07:56)
[2022-05-18 07:59] LABS: Anion Gap 8 (12-20); Blood Urea Nitrogen 12 mg/dL (9-16); Calcium 9.2 mg/dL (8.4-10.2); Carbon Dioxide 24 mmol/L (22-29); Chloride 105 mmol/L (96-108); Creatinine Clr Calc Pharmacy 98.6; Estimated Glomerular Filt Rate > 60; Glucose Random 75 mg/dL (60-115); Sodium 133 mmol/L (135-145)
[2022-05-18 08:23] VITALS: BP 105/66; PULSE 76; RESP 16; TEMP 36.4; O2SAT 100
[2022-05-18 08:27] LABS: Glucose, Whole Blood 148 mg/dL (60-115)
--- NOTE | 2022-05-18 09:14 | PC.NURSE ---
Dr. Sanchez provided verbal order to decrease IVF from 100ml to 50ml/hr.
--- NOTE | 2022-05-18 09:18 | MHC.CM.PN ---
Interview conducted with Judy, patient's mother; phone number on file accurate. Patient lives w/mother at given address, previous services w/[employer], mother does not recall amount of hours per week. Patient does not drive and does not have any equipment at home, he is functionally independent. Plan is to return home w/his mother and [employer] via mother. CM to follow.
--- NOTE | 2022-05-18 09:31 | P.CNGI_ITS ---
History of Present Illness Data of Consult Service Date: 05/18/22 Requesting physician: Josue Kaminski Primary Care Provider: Unknown Physician HPI Reason for consult: Hematochezia 21 YM with history of autism with behavioral disturbances brought to [facility] ED on 05/17/22 by his mother for evaluation of bleeding per rectum.? History obtained from the pt and his mother who was at the bedside. As per the mother, patient tested positive for COVID-19 on Thursday.? He had fever, chills and upper respiratory symptoms which resolved over 2-3 days.? Two of his siblings had similar symptoms and were quarntined in separate rooms. Since 05/13/22, patient has noted intermittent abdominal discomfort associated with non-bloody diarrhea (2-3 BMs per day). Yesterday, pt passed a large bloody foul smelling BM in his diaper. Blood was burgundy in color and was mostly pure blood with very little stools. Pt has a hx of chronic constipation and has a BM every few day and is on no medications at present.? He was advised to take Miralax every other day by his GI at [facility] - which did not help. He has not tried Senna or other medications for constipation. Mother denied past history of similar complaints.? The pt does not take NSAIDs for pain chronically.? Never has had a GI scope.? Patient denied chest discomfort, palpitation, shortness of breath, changes in urinary habits Labs showed H&H of 10.9 & 33.5 (decreased from 13.6 & 41 in 12/2021) In the emergency department stool occult blood test was positive.? Pt was admitted for further management. Repeat labs today showed a stable H&H of 10.8 & 32.8. 05/17/[address] SCAN SHOWED: Moderate wall thickening involving the rectosigmoid colon raising suspicion for an infectious or inflammatory colitis with associated small volume free fluid in the pelvis. No intraluminal contrast identified to suggest active bleeding however a multiphase exam would be more sensitive for evaluation of GI bleeding. Review of Systems Constitutional: Constitutional: Reports fatigue and Reports malaise Cardiovascular: Cardiovascular: Reports no additional cardiovascular complai nts Respiratory: Respiratory: Reports no additional respiratory complaints Gastrointestinal: Gastrointestinal: Reports hematochezia and Reports loose stools Endocrine: Endocrine: Reports fatigue PMFSH Past Medical History Medical History Autism Social History Social History Alcohol intake: never Patient Tobacco Use Status: Never used Tobacco Smoked in Last 30 Days: No Use of substances other than those prescribed or required for medical reasons: No Advance Directives: No Advance Directives Information Provided: Yes service: No Current occupational status: disabled Meds Allergies Allergy/AdvReac Type Severity Reaction Status Date / Time dog dander [DOGS] Allergy Unknown UNK Verified 05/17/22 12:01 milk [MILK] Allergy Unknown UNK Verified 05/17/22 12:01 Active Medications: Current Medications Acetaminophen (Acetaminophen 325 Mg Tablet) 650 mg PO Q6H PRN PRN Reason: Pain, Mild (Pain Scale 1-3) Aripiprazole (Aripiprazole 5 Mg Tablet) 7.5 mg PO BID [facility] Last Admin: 05/18/22 07:47 Dose: Not Given Clonidine HCl (Clonidine Hcl 0.2 Mg Tablet) 0.2 mg PO BID [facility]; Protocol Last Admin: 05/18/22 07:47 Dose: Not Given Escitalopram Oxalate (Escitalopram Oxalate 5 Mg Tablet) 5 mg PO BID [facility] Last Admin: 05/18/22 07:47 Dose: Not Given Ceftriaxone Sodium 1 gm/ (Sodium Chloride) 50 mls @ 100 mls/hr IV Q24H DONNY Metronidazole (Flagyl) 500 mg in 100 mls @ 100 mls/hr IV Q8H [facility] Last Infusion: 05/18/22 06:44 Dose: Infused Dextrose/Lactated Ringer's (D5lr) 1,000 mls @ 100 mls/hr IVCONT .Q10H [facility] Last Infusion: 05/18/22 09:14 Dose: 50 mls/hr Lorazepam (Lorazepam 0.5 Mg Tablet) 0.5 mg PO TID DONNY Last Admin: 05/18/22 07:47 Dose: Not Given Melatonin (Melatonin 3 Mg Tablet) 6 mg PO BEDTIME PRN PRN Reason: Insomnia Non-Formulary Medication (Methylphenidate Hcl [Concerta]) 1 tab PO DAILY [facility] Last Admin: 05/18/22 07:47 Dose: Not Given Ondansetron HCl (Ondansetron Hcl 4 Mg/2 Ml Vial) 4 mg IVPUSH Q8H PRN PRN Reason: Nausea and Vomiting Pantoprazole Sodium (Pantoprazole Sodium 40 Mg/10 Ml Vial) 40 mg IVPUSH BID@0630,1630 [facility] Last Admin: 05/18/22 05:40 Dose: 40 mg Pharmacy Consult (Consult Rx Perform Med Rec) 1 each MISCELLANE ONCE PRN PRN Reason: Consult order Sodium Chloride (0.9 % Sodium Chloride Flush 3 Ml Syringe) 3 ml IVFLUSH QSHIFT [facility] Last Admin: 05/18/22 07:14 Dose: Not Given Home Medications Medication Instructions Recorded Confirmed Last Taken Type aripiprazole 5 mg tablet 7.5 mg PO BID 02/19/21 05/17/22 12/30/21 History clonidine HCl 0.1 mg tablet 0.2 mg PO BID 02/19/21 05/17/22 12/29/21 History escitalopram oxalate 5 mg tablet 5 mg PO BID 02/19/21 05/17/22 12/30/21 History methylphenidate HCl 54 mg 1 tab PO DAILY 02/19/21 05/17/22 12/30/21 History tablet,extended release 24 hr (Concerta) lorazepam 0.5 mg tablet 1 tab PO TID 12/30/21 05/17/22 12/30/21 History Physical Exam Vital Signs: Vital Signs: Last Vital Signs Temp 97.5 F 05/18/22 08:23 Pulse 76 05/18/22 08:23 Resp 16 05/18/22 08:23 BP 105/66 05/18/22 08:23 Pulse Ox 100 05/18/22 08:23 O2 Del Method 05/18/22 08:23 BMI result Body Mass Index 15.4 Const: General: cooperative and no acute distress Nutritional Appearance: underweight Orientation/consciousness: patient oriented x3 Limitations: other limitations (Autism) HEENT: Head: Yes normal to inspection Ears: hearing grossly normal bi laterally Eyes: Sclerae: sclerae normal Pupils: Equal, round and reactive pupils present Neck: Neck: Yes normal visual inspection Chest: Chest palpation & inspection: normal inspection of the chest Resp: Effort & Inspection: normal respiratory effort Auscultation: clear to auscultation bilaterally Cardio: Palpation: normal PMI Rate: regular rate Rhythm: regular rhythm Heart sounds: S1 normal heart sound present, S2 normal heart sound present and no murmurs GI: Palpation (GI): Soft to palpation, Tenderness to palpation present (GI) (Mild left sided abdominal tenderness without rebound) and No hepatosplenomegaly present Auscultation: normal bowel sounds Rectal Exam - Male: Yes def erred Skin: General skin exam: no rashes or lesions noted Neuro: General: patient oriented x3, gait normal and moves all extremities Cranial nerves: Yes Equal, round and reactive pupils present Psych: Appearance: grossly normal Mental Status: other (autistic) Results Labs CBC & Chem 7: 05/18/22 06:05 05/18/22 06:05 Labs: Short CBC 05/17/22 05/18/22 Range/Units 12:21 06:05 WBC 3.8 L 5.2 (4.8-10.8) X10*3/uL Hgb 10.9 L 10.8 L (14.0-18.0) g/dl Hct 33.5 L 32.8 L (42.0-52.0) % Plt Count 312 D 310 (160-400) X10*3/uL BMP 05/17/22 05/18/22 12:22 06:05 Sodium 134 L 133 L Potassium 4.0 4.0 Chloride 99 105 Carbon Dioxide 30 H 24 BUN 15 12 Creatinine 0.81 0.76 Calcium 9.4 9.2 Liver Function 05/17/22 Range/Units 12:22 Total Bilirubin 0.6 (0.0-1.0) mg/dL Direct Bilirubin 0.2 (0.0-0.5) mg/dL AST 20 (5-37) U/L ALT 17 (0-40) U/L Alkaline Phosphatase 86 (39-117) U/L Albumin 4.3 (3.5-5.0) g/dL Urine 05/17/22 Range/Units 17:31 Urine Color Yellow Urine Appearance Clear Urine pH 7.0 (5.0-9.0) Ur Specific [place] 1.020 (1.005-1.025) Urine Protein Negative (Neg-Trace) mg/dL Urine Glucose (UA) Negative (Negative) mg/dL Assessment and Plan (1) Bleeding per rectum: Status: Acute (2) Colitis: Status: Acute Plan 21 YM with history of autism with behavioral disturbances admitted to [facility] ED on 05/17/22 with abdominal pain and bleeding per rectum.? As per the mother, patient tested positive for COVID-19 on Thursday.? Since 05/13/22, patient has noted intermittent abdominal discomfort associated with non-bloody diarrhea (2-3 BMs per day). Yesterday, pt passed a large bloody foul smelling BM in his diaper. Blood was burgundy in color and was mostly pure blood with very little stools. Labs showed H&H of 10.9 & 33.5 (decreased from 13.6 & 41 in 12/2021) Repeat labs today showed a stable H&H of 10.8 & 32.8. Patient's symptoms are likely due to GI manifestation of COVID19 complicated by ischemic colitis. Other source of rectal bleeding can be from stercoral ulcers in the rectum associated with chronic constipation. 05/17/[address] SCAN SHOWED: Moderate wall thickening involving the rectosigmoid colon raising suspicion for an infectious or inflammatory colitis with associated small volume free fluid in the pelvis. RECOMMENDATIONS: 1. Pt can be started on a regular diet (Lactose free) - order placed. 2. Agree with IV antibiotics. 3. Pt will be scheduled for a Flexible Sigmoidoscopy on 05/19/22. Sigmoidoscopy procedure and potential complications including bleeding, perforation and reaction to anesthetics were reviewed with patient and his mother. 4. Please recheck a COVID test in the am Procedures Date of Service Date of Service: 05/18/22
--- NOTE | 2022-05-18 12:36 | HO.PM.IMPN ---
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 Neck supple CVS regular rate rhythm, Respiratory lungs clear to auscultation, no respiratory distress, no wheeze, no rhonchi. Gastrointestinal abdomen soft, nontender, bowel sounds audible, no guarding , no rigidity. Extremities no edema. Neuro nonfocal , moving all 4 extremity speech clear. Skin no rash Objective Data Active Medications Acetaminophen (Acetaminophen 325 Mg Tablet) 650 mg PO Q6H PRN PRN Reason: Pain, Mild (Pain Scale 1-3) Aripiprazole (Aripiprazole 5 Mg Tablet) 7.5 mg PO BID [facility] Last Admin: 05/18/22 07:47 Dose: Not Given Documented By: DANIEL Non-Admin Reason: NPO Clonidine HCl (Clonidine Hcl 0.2 Mg Tablet) 0.2 mg PO BID [facility]; Protocol Last Admin: 05/18/22 07:47 Dose: Not Given Documented By: DANIEL Non-Admin Reason: NPO Escitalopram Oxalate (Escitalopram Oxalate 5 Mg Tablet) 5 mg PO BID [facility] Last Admin: 05/18/22 07:47 Dose: Not Given Documented By: DANIEL Non-Admin Reason: NPO Ceftriaxone Sodium 1 gm/ (Sodium Chloride) 50 mls @ 100 mls/hr IV Q24H [facility] Metronidazole (Flagyl) 500 mg in 100 mls @ 100 mls/hr IV Q8H [facility] Last Infusion: 05/18/22 06:44 Dose: 100 mls/hr Documented By: LUIS MANUEL Dextrose/Lactated Ringer's (D5lr) 1,000 mls @ 60 mls/hr IVCONT .[id number] [facility] Last Infusion: 05/18/22 10:42 Dose: 60 mls/hr Documented By: DANIEL Lorazepam (Lorazepam 0.5 Mg Tablet) 0.5 mg PO TID [facility] Last Admin: 05/18/22 07:47 Dose: Not Given Documented By: DANIEL Non-Admin Reason: NPO Melatonin (Melatonin 3 Mg Tablet) 6 mg PO BEDTIME PRN PRN Reason: Insomnia Non-Formulary Medication (Methylphenidate Hcl [Concerta]) 1 tab PO DAILY [facility] Last Admin: 05/18/22 07:47 Dose: Not Given Documented By: DANIEL Non-Admin Reason: NPO Ondansetron HCl (Ondansetron Hcl 4 Mg/2 Ml Vial) 4 mg IVPUSH Q8H PRN PRN Reason: Nausea and Vomiting Pantoprazole Sodium (Pantoprazole Sodium 40 Mg/10 Ml Vial) 40 mg IVPUSH BID@0630,1630 [facility] Last Admin: 05/18/22 05:40 Dose: 40 mg Documented By: LUIS MANUEL Pharmacy Consult (Consult Rx Perform Med Rec) 1 each MISCELLANE ONCE PRN PRN Reason: Consult order Sodium Chloride (0.9 % Sodium Chloride Flush 3 Ml Syringe) 3 ml IVFLUSH QSHIFT [facility] Last Admin: 05/18/22 07:14 Dose: Not Given Documented By: DANIEL Non-Admin Reason: Patient Asleep Labs CBC & Chem 7: 05/18/22 06:05 05/18/22 06:05 Labs: Laboratory Results - last 24 hr 05/17/22 05/17/22 05/17/22 12:21 12:22 12:22 MCV 81.7 MCH 26.6 L MCHC 32.5 RDW 14.4 Plt Count 312 D MPV 9.2 L Immature Gran % (Auto) 0.3 Neut % (Auto) 52.4 Lymph % (Auto) 40.6 H [place] % (Auto) 5.6 Eos % (Auto) 0.3 Baso % (Auto) 0.8 Lymph # (Auto) 1.5 [place] # (Auto) 0.2 Eos # (Auto) 0.0 Baso # (Auto) 0.0 Abs Immat Gran (auto) 0.01 Absolute Neuts (auto) 2.0 Absolute Nucleated RBC 0.000 Nucleated RBC % (auto) 0.0 PT 12.7 INR 1.1 Anion Gap 9 L Estim Creat Clear Calc 92.5 Estimated GFR > 60 POC Glucose Random Glucose 76 Calcium 9.4 Total Bilirubin 0.6 Direct Bilirubin 0.2 AST 20 ALT 17 Alkaline Phosphatase 86 Total Protein 7.1 Albumin 4.3 Urine Color Urine Appearance Urine pH Ur Specific [place] Urine Protein Urine Glucose (UA) Urine Ketones Urine Blood Urine Nitrite Ur Leukocyte Esterase Stool Occult Blood COVID-19 (KATYA) COVID-19 [facility] Com Blood Type Antibody Screen 05/17/22 05/17/22 05/17/22 17:31 17:31 17:31 MCV MCH MCHC RDW Plt Count MPV Immature Gran % (Auto) Neut % (Auto) Lymph % (Auto) [place] % (Auto) Eos % (Auto) Baso % (Auto) Lymph # (Auto) [place] # (Auto) Eos # (Auto) Baso # (Auto) Abs Immat Gran (auto) Absolute Neuts (auto) Absolute Nucleated RBC Nucleated RBC % (auto) PT INR Anion Gap Estim Creat Clear Calc Estimated GFR POC Glucose Random Glucose Calcium Total Bilirubin Direct Bilirubin AST ALT Alkaline Phosphatase Total Protein Albumin Urine Color Yellow Urine Appearance Clear Urine pH 7.0 Ur Specific [place] 1.020 Urine Protein Negative Urine Glucose (UA) Negative Urine Ketones Trace Urine Blood Negative Urine Nitrite Negative Ur Leukocyte Esterase Negative Stool Occult Blood POSITIVE COVID-19 (KATYA) Positive A COVID-19 [facility] Com See Note Blood Type Antibody Screen 05/17/22 05/18/22 05/18/22 17:40 06:05 06:05 MCV 81.6 MCH 26.9 L MCHC 32.9 RDW 14.1 Plt Count 310 MPV 10.1 Immature Gran % (Auto) 0.4 Neut % (Auto) 68.6 Lymph % (Auto) 22.0 [place] % (Auto) 7.8 Eos % (Auto) 0.6 Baso % (Auto) 0.6 Lymph # (Auto) 1.2 [place] # (Auto) 0.4 Eos # (Auto) 0.0 Baso # (Auto) 0.0 Abs Immat Gran (auto) 0.02 Absolute Neuts (auto) 3.6 Absolute Nucleated RBC 0.000 Nucleated RBC % (auto) 0.0 PT INR Anion Gap 8 L Estim Creat Clear Calc 98.6 Estimated GFR > 60 POC Glucose Random Glucose 75 Calcium 9.2 Total Bilirubin Direct Bilirubin AST ALT Alkaline Phosphatase Total Protein Albumin Urine Color Urine Appearance Urine pH Ur Specific [place] Urine Protein Urine Glucose (UA) Urine Ketones Urine Blood Urine Nitrite Ur Leukocyte Esterase Stool Occult Blood COVID-19 (KATYA) COVID-19 [facility] Com Blood Type O Positive Antibody Screen NEGATIVE 05/18/22 05/18/22 07:23 08:20 MCV MCH MCHC RDW Plt Count MPV Immature Gran % (Auto) Neut % (Auto) Lymph % (Auto) [place] % (Auto) Eos % (Auto) Baso % (Auto) Lymph # (Auto) [place] # (Auto) Eos # (Auto) Baso # (Auto) Abs Immat Gran (auto) Absolute Neuts (auto) Absolute Nucleated RBC Nucleated RBC % (auto) PT INR Anion Gap Estim Creat Clear Calc Estimated GFR POC Glucose 66 148 H Random Glucose Calcium Total Bilirubin Direct Bilirubin AST ALT Alkaline Phosphatase Total Protein Albumin Urine Color Urine Appearance Urine pH Ur Specific [place] Urine Protein Urine Glucose (UA) Urine Ketones Urine Blood Urine Nitrite Ur Leukocyte Esterase Stool Occult Blood COVID-19 (KATYA) COVID-19 Clin Com Blood Type Antibody Screen Assessment and Plan (1) Bleeding per rectum: Status: Acute (2) Autism: Status: Acute (3) Colitis: Status: Acute Plan 21-year-old male with pertinent history of autism with behavioral disturbances, who was brought to the emergency department by his mother for evaluation of bleeding per rectum. #.? Acute gastrointestinal bleeding nehemiah due to rectosigmoid colitis question infectious ,question ischemic. no recurrent episodes of bleed since admission hematocrit remains stable follow CBC continue IV Flagyl and ceftriaxone day 1 on IV Protonix 40 b.i.d. case discussed with Dr. Taylor from Gastroenterology will place patient on diet, NPO after midnight for possible sigmoidoscopy, will check COVID test at a.m. #.? COVID positive test date:? 05/12 maintaining normal oxygen saturation on room air.? No indication for remdesivir or steroids #.? Autism with behavioral disturbance continue home p.o. medications, no behavioral issues noted DVT prophylaxis: low risk early ambulation Full code will require continued inpatient hospital stay for close monitoring of H&H/hemodynamic status and IV antibiotics and possible sigmoidoscopy. Quality Stroke Does the patient have a stroke diagnosis?: No VTE Prior VTE?: No VTE Risk Level:: Medical - low VTE Device Contraindication: Treatment Not Indicated VTE Drug Contraindication: Treatment Not Indicated
[2022-05-18] MEDS: LORazepam 0.5 MG TABLET PO ×2 (15:12→20:55)
[2022-05-18 15:14] VITALS: BP 134/78; PULSE 118; RESP 19; TEMP 37.2; O2SAT 100
[2022-05-18] MEDS: Escitalopram Oxalate 5 MG TABLET PO (20:55)
[2022-05-18] MEDS: cefTRIAXone sodium 1 GM in 0.9 % Sodium Chloride 50 ML IV (20:56)
[2022-05-18 23:53] VITALS: BP 113/72; PULSE 77; RESP 18; TEMP 37.1; O2SAT 98
[2022-05-19] VITALS (10 sets, daily range): BP systolic 93–137; BP diastolic 56–87; PULSE 58–90; RESP 16–20; TEMP 36.1–37; O2SAT 96–100; BMI 15.4
[2022-05-19] MEDS: metroNIDAZOLE/NS 500 MG/100 ML PIGGYBACK 100 MG IV ×2 (06:35→15:27)
[2022-05-19] MEDS: Pantoprazole Sodium 40 MG/10 ML VIAL IVPUSH (06:35)
[2022-05-19 08:06] LABS: Hematocrit 35.2 % (42.0-52.0); Hemoglobin 11.5 g/dl (14.0-18.0); Mean Corpuscular HGB Conc 32.7 g/dl (31.0-36.0); Mean Corpuscular Hemoglobin 26.9 pg (27.0-33.0); Mean Corpuscular Volume 82.4 fL (80.0-98.0); Mean Platelet Volume 9.6 fL (9.4-12.4); Platelet Count 324 X10*3/uL (160-400); Red Blood Count 4.27 X10*6/uL (4.60-5.80); Red Cell Distribution Width 14.6 % (11.0-16.0); White Blood Count 4.4 X10*3/uL (4.8-10.8)
[2022-05-19] MEDS: Escitalopram Oxalate 5 MG TABLET PO (09:21)
[2022-05-19] MEDS: ARIPiprazole 5 MG TABLET 7.5 MG PO (09:21)
[2022-05-19] MEDS: LORazepam 0.5 MG TABLET PO ×2 (09:21→15:25)
[2022-05-19] MEDS: 0.9 % Sodium Chloride Flush 3 ML SYRINGE IVFLUSH ×2 (09:22→15:27)
[2022-05-19] MEDS: cloNIDine HCL 0.2 MG TABLET PO (09:22)
[2022-05-19 10:12] LABS: COVID-19 Test Positive (Negative); IDNOW Serial# BCCEAD1C
--- NOTE | 2022-05-19 12:52 | P.CONAN_ITS ---
[facility] Active Problems Active Problems: All Active Problems (Updated 05/17/22 @ 21:26 by Josue Kaminski MD) Bleeding per rectum (Acute) Autism (Acute) Colitis (Acute) Past Medical History Medical History Autism Functional capacity: independent ambulation Family History Family history of problems with anesthesia: No Surgical History History of Problems with Anesthesia: Unobtainable Social History Social History Household Members: Family Housing: House Alcohol intake: never Patient Tobacco Use Status: Never used Tobacco service: No Current occupational status: disabled Meds Allergies Allergy/AdvReac Type Severity Reaction Status Date / Time dog dander [DOGS] Allergy Unknown UNK Verified 05/17/22 12:01 milk [MILK] Allergy Unknown UNK Verified 05/17/22 12:01 Active Medications: Current Medications Acetaminophen (Acetaminophen 325 Mg Tablet) 650 mg PO Q6H PRN PRN Reason: Pain, Mild (Pain Scale 1-3) Aripiprazole (Aripiprazole 5 Mg Tablet) 7.5 mg PO BID [facility] Last Admin: 05/19/22 09:21 Dose: 7.5 mg Clonidine HCl (Clonidine Hcl 0.2 Mg Tablet) 0.2 mg PO BID [facility]; Protocol Last Admin: 05/19/22 09:22 Dose: 0.2 mg Escitalopram Oxalate (Escitalopram Oxalate 5 Mg Tablet) 5 mg PO BID [facility] Last Admin: 05/19/22 09:21 Dose: 5 mg Ceftriaxone Sodium 1 gm/ (Sodium Chloride) 50 mls @ 100 mls/hr IV Q24H [facility] Last Infusion: 05/18/22 22:51 Dose: Infused Metronidazole (Flagyl) 500 mg in 100 mls @ 100 mls/hr IV Q8H [facility] Last Infusion: 05/19/22 07:46 Dose: Infused Lorazepam (Lorazepam 0.5 Mg Tablet) 0.5 mg PO TID [facility] Last Admin: 05/19/22 09:21 Dose: 0.5 mg Melatonin (Melatonin 3 Mg Tablet) 6 mg PO BEDTIME PRN PRN Reason: Insomnia Non-Formulary Medication (Methylphenidate Hcl [Concerta]) 1 tab PO DAILY [facility] Last Admin: 05/18/22 07:47 Dose: Not Given Ondansetron HCl (Ondansetron Hcl 4 Mg/2 Ml Vial) 4 mg IVPUSH Q8H PRN PRN Reason: Nausea and Vomiting Pantoprazole Sodium (Pantoprazole Sodium 40 Mg/10 Ml Vial) 40 mg IVPUSH BID@0630,1630 [facility] Last Admin: 05/19/22 06:35 Dose: 40 mg Pharmacy Consult (Consult Rx Perform Med Rec) 1 each MISCELLANE ONCE PRN PRN Reason: Consult order Sodium Chloride (0.9 % Sodium Chloride Flush 3 Ml Syringe) 3 ml IVFLUSH QSHIFT [facility] Last Admin: 05/19/22 09:22 Dose: 3 ml Home Medications Medication Instructions Recorded Confirmed Last Taken Type aripiprazole 5 mg tablet 7.5 mg PO BID 02/19/21 05/17/22 12/30/21 History clonidine HCl 0.1 mg tablet 0.2 mg PO BID 02/19/21 05/17/22 12/29/21 History escitalopram oxalate 5 mg tablet 5 mg PO BID 02/19/21 05/17/22 12/30/21 History methylphenidate HCl 54 mg 1 tab PO DAILY 02/19/21 05/17/22 12/30/21 History tablet,extended release 24 hr (Concerta) lorazepam 0.5 mg tablet 1 tab PO TID 12/30/21 05/17/22 12/30/21 History Exam Exam Date and Time: May 19, 2022 125 Height,Weight and Vital Signs: Height 5 ft 7 in Weight 44.6 kg Last Vital Signs Temp 97.5 F 05/19/22 11:52 Pulse 90 05/19/22 11:52 Resp 20 05/19/22 11:52 BP 93/56 L 05/19/22 11:52 Pulse Ox 97 05/19/22 11:52 O2 Del Method 05/19/22 11:52 Pertinent Lab Results Pertinent Lab Results: Laboratory Tests 05/17/22 05/17/22 05/17/22 12:21 12:22 12:22 WBC 3.8 L RBC 4.10 L Hgb 10.9 L Hct 33.5 L MCV 81.7 MCH 26.6 L MCHC 32.5 RDW 14.4 Plt Count 312 D MPV 9.2 L Immature Gran % (Auto) 0.3 Neut % (Auto) 52.4 Lymph % (Auto) 40.6 H [place] % (Auto) 5.6 Eos % (Auto) 0.3 Baso % (Auto) 0.8 Lymph # (Auto) 1.5 [place] # (Auto) 0.2 Eos # (Auto) 0.0 Baso # (Auto) 0.0 Abs Immat Gran (auto) 0.01 Absolute Neuts (auto) 2.0 Absolute Nucleated RBC 0.000 Nucleated RBC % (auto) 0.0 PT 12.7 INR 1.1 Sodium 134 L Potassium 4.0 Chloride 99 Carbon Dioxide 30 H Anion Gap 9 L BUN 15 Creatinine 0.81 Estim Creat Clear Calc 92.5 Estimated GFR > 60 POC Glucose Random Glucose 76 Calcium 9.4 Total Bilirubin 0.6 Direct Bilirubin 0.2 AST 20 ALT 17 Alkaline Phosphatase 86 Total Protein 7.1 Albumin 4.3 Urine Color Urine Appearance Urine pH Ur Specific [place] Urine Protein Urine Glucose (UA) Urine Ketones Urine Blood Urine Nitrite Ur Leukocyte Esterase Stool Occult Blood COVID-19 (KATYA) COVID-[employer] Com Blood Type Antibody Screen 05/17/22 05/17/22 05/17/22 17:31 17:31 17:31 WBC RBC Hgb Hct MCV MCH MCHC RDW Plt Count MPV Immature Gran % (Auto) Neut % (Auto) Lymph % (Auto) [place] % (Auto) Eos % (Auto) Baso % (Auto) Lymph # (Auto) [place] # (Auto) Eos # (Auto) Baso # (Auto) Abs Immat Gran (auto) Absolute Neuts (auto) Absolute Nucleated RBC Nucleated RBC % (auto) PT INR Sodium Potassium Chloride Carbon Dioxide Anion Gap BUN Creatinine Estim Creat Clear Calc Estimated GFR POC Glucose Random Glucose Calcium Total Bilirubin Direct Bilirubin AST ALT Alkaline Phosphatase Total Protein Albumin Urine Color Yellow Urine Appearance Clear Urine pH 7.0 Ur Specific [place] 1.020 Urine Protein Negative Urine Glucose (UA) Negative Urine Ketones Trace Urine Blood Negative Urine Nitrite Negative Ur Leukocyte Esterase Negative Stool Occult Blood POSITIVE COVID-19 (KATYA) Positive A COVID-19 [employer] See Note Blood Type Antibody Screen 05/17/22 05/18/22 05/18/22 17:40 06:05 06:05 WBC 5.2 RBC 4.02 L Hgb 10.8 L Hct 32.8 L MCV 81.6 MCH 26.9 L MCHC 32.9 RDW 14.1 Plt Count 310 MPV 10.1 Immature Gran % (Auto) 0.4 Neut % (Auto) 68.6 Lymph % (Auto) 22.0 [place] % (Auto) 7.8 Eos % (Auto) 0.6 Baso % (Auto) 0.6 Lymph # (Auto) 1.2 [place] # (Auto) 0.4 Eos # (Auto) 0.0 Baso # (Auto) 0.0 Abs Immat Gran (auto) 0.02 Absolute Neuts (auto) 3.6 Absolute Nucleated RBC 0.000 Nucleated RBC % (auto) 0.0 PT INR Sodium 133 L Potassium 4.0 Chloride 105 Carbon Dioxide 24 Anion Gap 8 L BUN 12 Creatinine 0.76 Estim Creat Clear Calc 98.6 Estimated GFR > 60 POC Glucose Random Glucose 75 Calcium 9.2 Total Bilirubin Direct Bilirubin AST ALT Alkaline Phosphatase Total Protein Albumin Urine Color Urine Appearance Urine pH Ur Specific [place] Urine Protein Urine Glucose (UA) Urine Ketones Urine Blood Urine Nitrite Ur Leukocyte Esterase Stool Occult Blood COVID-19 (KATYA) COVID-19 [employer] Com Blood Type O Positive Antibody Screen NEGATIVE 05/18/22 05/18/22 05/19/22 07:23 08:20 07:32 WBC 4.4 L RBC 4.27 L Hgb 11.5 L Hct 35.2 L MCV 82.4 MCH 26.9 L MCHC 32.7 RDW 14.6 Plt Count 324 MPV 9.6 Immature Gran % (Auto) Neut % (Auto) Lymph % (Auto) [place] % (Auto) Eos % (Auto) Baso % (Auto) Lymph # (Auto) [place] # (Auto) Eos # (Auto) Baso # (Auto) Abs Immat Gran (auto) Absolute Neuts (auto) Absolute Nucleated RBC 0.000 Nucleated RBC % (auto) 0.0 PT INR Sodium Potassium Chloride Carbon Dioxide Anion Gap BUN Creatinine Estim Creat Clear Calc Estimated GFR POC Glucose 66 148 H Random Glucose Calcium Total Bilirubin Direct Bilirubin AST ALT Alkaline Phosphatase Total Protein Albumin Urine Color Urine Appearance Urine pH Ur Specific [place] Urine Protein Urine Glucose (UA) Urine Ketones Urine Blood Urine Nitrite Ur Leukocyte Esterase Stool Occult Blood COVID-19 (KATYA) COVID-19 [employer] Com Blood Type Antibody Screen 05/19/22 09:30 WBC RBC Hgb Hct MCV MCH MCHC RDW Plt Count MPV Immature Gran % (Auto) Neut % (Auto) Lymph % (Auto) [place] % (Auto) Eos % (Auto) Baso % (Auto) Lymph # (Auto) [place] # (Auto) Eos # (Auto) Baso # (Auto) Abs Immat Gran (auto) Absolute Neuts (auto) Absolute Nucleated RBC Nucleated RBC % (auto) PT INR Sodium Potassium Chloride Carbon Dioxide Anion Gap BUN Creatinine Estim Creat Clear Calc Estimated GFR POC Glucose Random Glucose Calcium Total Bilirubin Direct Bilirubin AST ALT Alkaline Phosphatase Total Protein Albumin Urine Color Urine Appearance Urine pH Ur Specific [place] Urine Protein Urine Glucose (UA) Urine Ketones Urine Blood Urine Nitrite Ur Leukocyte Esterase Stool Occult Blood COVID-19 (KATYA) Positive A COVID-19 Clin Com See Note Blood Type Antibody Screen Airway Heart: RRR Lungs: CTA Assessment and Plan Final Anesthetic Review Family History of Problems with Anesthesia: No History of Problems with Anesthesia: Unobtainable ASA Class: III Final Preanesthetic Review: No Changes in Pt Med Stat, Meds/Allgs Chart Reviewed, Consent Obtained/Reviewed and Anes Risks/Benef Reviewed Patient Risk: Low Procedure Risk: Low Anesthetic Plan Anesthetic Plan: MAC: Disposition: Standard PACU
--- NOTE | 2022-05-19 13:46 | MHC.SHP ---
Pre-Procedural Eval Section A Date of Service: 05/19/22 The patient is an INPATIENT: Yes Changes since office visit: Yes Cold of Flu in the past 2 weeks, Yes New Medical Problems, Yes Changes in Medication and Yes Patient answered all questions The History & Physical has been completed within 30 days and I have reviewed it.: Yes Section B Chief Complaint: GI Bleed Allergies: Allergies Allergy/AdvReac Type Severity Reaction Status Date / Time dog dander [DOGS] Allergy Unknown UNK Verified 05/17/22 12:01 milk [MILK] Allergy Unknown UNK Verified 05/17/22 12:01 Plan I have reviewed the history and physical and performed a pertinent physical examination on my patient. No changes have occurred unless specified.
--- NOTE | 2022-05-19 13:47 | PM.OP ---
Brief Operative Note Date of Service: 05/19/22 Pre-op diagnosis: Abdominal pain, diarrhea, rectal bleeding Post-op diagnosis: other ( SIGMOID COLON POLYP) Procedure: FLEXIBLE SIGMOIDOSCOPY TO 30 CM WITH BIOPSIES. Surgeon: Rodolfo Taylor MD Anesthesia: MAC Was an Oil Well Perforator Operator used for this Procedure?: Yes Oil Well Perforator Operator: Brooke Menendez Estimated blood loss (mL): 0 Pathology: other (a: left colon r/o ischemic colitis) Condition: stable Disposition: PACU
--- NOTE | 2022-05-19 13:47 | W.PM.OPN ---
Operative Note Operative Note Date of Service: 05/19/22 Narrative: Pre-op diagnosis: Abdominal pain, diarrhea, rectal bleeding Post-op diagnosis:?other ( SIGMOID COLON POLYP) Surgeon: Rodolfo Taylor MD Anesthesia:?MAC FLEXIBLE SIGMOIDOSCOPY TILL 30 CMS WITH BIOPSIES Consent: Indications for the procedure and potential complications of bleeding, perforation, reaction to medications and missed diagnosis were discussed with the patient's Mom and informed consent was obtained. Instrument: Olympus PCF H 190 L variable stiffness pediatric colonoscope Monitoring: Vital signs and clinical assessment, intermittent blood pressure monitoring, continuous EKG monitoring, Pulse oximetry and Carbon Dioxide monitoring were done throughout the procedure. Procedure: The patient was placed in the left lateral decubitis position and pre-procedure medications were administered. After a digital rectal examination of the ano-rectum, the video colonoscope was inserted into the rectum and advanced through the colon to 30 cms into the sigmoid colon. The colonoscope was slowly withdrawn in a retrograde panoramic fashion and the colon mucosa was carefully examined including a retroflexed view of the rectum. Findings and interventions are described below. Findings: Sigmoid Colon: A 12- 15 mm ulcerated polyp in the sigmoid colon at 20 cms - likely source of rectal bleeding. Minimal patchy erythema - random biopsies were obtained. Rectum: Normal Ano-rectum: Normal Colon preparation: fair to poor Impression and Post Procedure Diagnosis: Flexible Sigmoidoscopy Findings: A 12- 15 mm ulcerated polyp in the sigmoid colon at 20 cms - likely source of rectal bleeding. Polyp was not removed since pt was not prepped. Plan: Patient will be scheduled for a full colonoscopy as an outpatient for removal of sigmoid colon polyp. Above findings were reviewed with the patient's Mom
--- NOTE | 2022-05-19 15:35 | MHC.CM.PN ---
Patient has been medically cleared for dc to home today, self care.
--- NOTE | 2022-05-19 15:36 | P.DS_ITS ---
DS: Providers Provider Date of Service: 05/19/22 Date of admission: 05/17/22 20:10 Primary care physician: Maurizio Caro MD Consults: 05/17/22 21:29 Consult to Gastroenterology Routine Consulting Provider: Rodolfo Taylor Reason for consultation: acute GI bleed DS: Diagnosis Discharge Diagnosis (1) Bleeding per rectum: Status: Acute (2) Autism: Status: Acute (3) Colitis: Status: Acute DS: Summary Hospital Course Hospital Course: Date of Service: 05/17/22 Chief Complaint: GI bleed This is a 21-year-old male with pertinent history of autism with behavioral disturbances, who was brought to the emergency department by his mother for evaluation of bleeding per rectum.? As per the mother, patient tested positive for COVID-19 on Thursday.? His fever, chills and upper respiratory symptoms resolved over the course of 2-3 days.? Patient started having abdominal discomfort, right upper quadrant, intermittent and without any relieving or aggravating factors on the day of presentation.? It was associated with bleeding per rectum.? No history of similar complaints in the past.? Does not take NSAIDs for pain chronically.? Never has had a GI scope.? Patient denies chest discomfort, palpitation, shortness of breath, changes in urinary habits In the emergency department stool occult blood test was positive.? Imaging was concerning for colitis. hospital course 21-year-old male with pertinent history of autism with behavioral disturbances, who was brought to the emergency department by his mother for evaluation of bleeding per rectum. #.? Acute gastrointestinal bleeding patient admitted to medical floor was placed on IV Flagyl and ceftriaxone need to consult for rectosigmoid colitis?, subsequently patient underwent sigmoidoscopy by Dr. Taylor noted to have a small ulcerated sigmoid polyp likely cause of bleeding, patient had no recurrent episodes of bleeding hematocrit remains stable, theref ore patient is being discharged home to have outpatient follow-up with Gastroenterology for colonoscopy and removal of polyp. #.? COVID positive test date:? 05/12 stable oxygenation ?? ? #.? Autism with behavioral disturbance ? ? continue home p.o. medications, no behavioral issues noted. Time Spent with Patient Time attestation: Total time spent providing and/or coordinating discharge services: Discharge coordination time: Greater than 30 minutes Quality: Safe Use of Opioids Does Pt have an Active Cancer Diagnosis on the Problem List?: No Quality: Stroke Does the patient have a stroke diagnosis?: No Physical Exam Vital Signs: Vital Signs: Last Vital Signs Temp 97.2 F 05/19/22 14:42 Pulse 69 05/19/22 14:42 Resp 20 05/19/22 14:42 BP 112/67 05/19/22 14:42 Pulse Ox 100 05/19/22 14:42 O2 Del Method 05/19/22 14:42 O2 Flow Rate 6 05/19/22 13:47 BMI result Body Mass Index 15.4 Const: Other: General awake, alert,resting comfortably in no acute distress.? Neck supple CVS? regular rate rhythm, Respiratory lungs clear to auscultation, no respiratory distress, no wheeze, no rhonchi. Gastrointestinal abdomen soft, nontender, bowel sounds audible, no guarding , no rigidity. Extremities no edema. Neuro nonfocal , moving all 4 extremity speech clear. Skin no rash DS: Data Data Completed and Pending Pending studies at discharge: Pending at discharge 05/19/22 13:34 Surgical [PTH] Routine Labs on day of discharge: Laboratory Results - last 24 hr 05/19/22 05/19/22 07:32 09:30 WBC 4.4 L RBC 4.27 L Hgb 11.5 L Hct 35.2 L MCV 82.4 MCH 26.9 L MCHC 32.7 RDW 14.6 Plt Count 324 MPV 9.6 Absolute Nucleated RBC 0.000 Nucleated RBC % (auto) 0.0 COVID-19 (KATYA) Positive A COVID-19 Clin Com See Note Discharge Plan Discharge Anticipated Discharge Date/Time: 05/19/22 15:34 Patient Disposition: Home, Self-Care Discharge Diagnosis: acute rectal bleed COVID-19 infection Referrals: Maurizio Caro MD [Primary Care Provider] - 1 Week Discharge Medications: Continued clonidine HCl 0.1 mg tablet 0.2 mg PO BID Rx Instructions: 1 tablet at 0830 and 1530, 3 tablets at bedtime methylphenidate HCl [Concerta] 54 mg tablet extended release 24hr 1 tab PO DAILY aripiprazole 5 mg tablet 7.5 mg PO BID Rx Instructions: total daily dose: 15 mg (7.5 mg bid) escitalopram oxalate 5 mg tablet 5 mg PO BID lorazepam 0.5 mg tablet 1 tab PO TID Discharge Orders: Discharge Order (Routine); Ordered 05/19/22 Ordered By: Norberto Sanchez Diet: Advance to usual diet Activity on Discharge: As tolerated Stand Alone Forms: Patient Portal Discharge page Care Plan Goals: rectal bleed resolved no new medications sigmoidoscopy showed 12-15 mm ulcerated polyp in sigmoid colon likely source of rectal bleeding, outpatient follow-up with Dr. Taylor for colonoscopy and resection of sigmoid polyp Health Concerns: take all home medications as before Plan of Treatment: outpatient in follow-up with Dr. Taylor, call to make appointment Assessment: as above
== END 2022-05-19 18:00 | disposition home or self-care (01) | DRG 249 ==
LOC: HO.ED 20:16 → HO.EDOVER 20:36 → HO.IMC 05-18 22:51
PROVIDERS: Internal Medicine Gastroenterology; Nurse Practitioner Family; Admitting Provider Student in an Organized Health Care Education/Training Program; Emergency Provider Emergency Medicine Emergency Medical Services; PCP Pediatrics; Visit Provider Hospitalist
PROC: 0DJD8ZZ Inspection of Lower Intestinal Tract, Via Natural or Artificial Opening Endoscopic (ICD-10-PCS; CPT 45330; principal; 2022-05-19 13:00)
DX: K52.9 Noninfective gastroenteritis and colitis, unspecified (principal); U07.1 COVID-19; K62.5 Hemorrhage of anus and rectum; K63.5 Polyp of colon; F84.0 Autistic disorder; Z79.899 Other long term (current) drug therapy
CPT/HCPCS: 45331; 36415; 74177; 80048; 80076; 81003; 82272; 82947; 85025; 85027; 85610; 86850; 86900; 86901; 87635; 88305; 99219; 99285; J0696; J2354; Q9967

== ENCOUNTER 2022-06-13 09:17 | Day surgery (SDC) | payer OTHER, SELFPAY ==
[2022-06-06 12:58] VITALS: BMI 15.3
--- NOTE | 2022-06-12 09:46 | P.CONAN_ITS ---
Documented by User: Aileen Muñoz NP 06/12/22 09:49 HPI - Anesthesia Eval Consult details Narrative: 21yo M for Colonoscopy s/p flex sig 05/19/22 with MAC PMFSH Past Medical History Medical History Autism History of COVID-19 Hx of flexible sigmoidoscopy Family History Family history of problems with anesthesia: No Surgical History History of Problems with Anesthesia: Unobtainable Social History Social History Household Members: Family Housing: House Alcohol intake: never Patient Tobacco Use Status: Never used Tobacco Use of substances other than those prescribed or required for medical reasons: No Have you been hit, kicked, punched, or otherwise hurt by someone within the past year? If so, by whom?: No Are you DNR?: No Advance Directives Information Provided: Yes (will bring paperwork DOS) Advance Directives on File: No Poor oral hygiene: No service: No Current occupational status: disabled Meds Allergies Allergy/AdvReac Type Severity Reaction Status Date / Time dog dander [DOGS] Allergy Unknown UNK Verified 06/13/22 09:34 milk [MILK] Allergy Unknown UNK Verified 06/13/22 09:34 Home Medications Medication Instructions Recorded Confirmed Last Taken Type aripiprazole 5 mg tablet 7.5 mg PO BID 02/19/21 06/06/22 06/13/22 08:00 History clonidine HCl 0.1 mg tablet 0.2 mg PO BID 02/19/21 06/06/22 06/13/22 08:00 History escitalopram oxalate 5 mg tablet 5 mg PO BID 02/19/21 06/06/22 06/13/22 08:00 History methylphenidate HCl 54 mg 1 tab PO DAILY 02/19/21 06/06/22 06/13/22 08:00 History tablet,extended release 24 hr (Concerta) lorazepam 0.5 mg tablet 1 tab PO TID 12/30/21 06/06/22 06/13/22 08:00 History Exam Exam Date and Time: June 12, 2022 0946 Height,Weight and Vital Signs: Height 5 ft 7 in Weight 44.452 kg Pertinent Lab Results Pertinent Lab Results: Laboratory Tests 05/17/22 05/17/2205/17/22 12:21 12:22 12:22 WBC 3.8 L RBC 4.10 L Hgb 10.9 L Hct 33.5 L MCV 81.7 MCH 26.6 L MCHC 32.5 RDW 14.4 Plt Count 312 D MPV 9.2 L Immature Gran % (Auto) 0.3 Neut % (Auto) 52.4 Lymph % (Auto) 40.6 H Haakon % (Auto) 5.6 Eos % (Auto) 0.3 Baso % (Auto) 0.8 Lymph # (Auto) 1.5 Haakon # (Auto) 0.2 Eos # (Auto) 0.0 Baso # (Auto) 0.0 Abs Immat Gran (auto) 0.01 Absolute Neuts (auto) 2.0 Absolute Nucleated RBC 0.000 Nucleated RBC % (auto) 0.0 PT 12.7 INR 1.1 Sodium 134 L Potassium 4.0 Chloride 99 Carbon Dioxide 30 H Anion Gap 9 L BUN 15 Creatinine 0.81 Estim Creat Clear Calc 92.5 Estimated GFR > 60 POC Glucose Random Glucose 76 Calcium 9.4 Total Bilirubin 0.6 Direct Bilirubin 0.2 AST 20 ALT 17 Alkaline Phosphatase 86 Total Protein 7.1 Albumin 4.3 Urine Color Urine Appearance Urine pH Ur Specific [place] Urine Protein Urine Glucose (UA) Urine Ketones Urine Blood Urine Nitrite Ur Leukocyte Esterase Stool Occult Blood COVID-19 (KATYA) COVID-19 Clin [facility] Blood Type Antibody Screen 05/17/22 05/17/22 05/17/22 17:31 17:31 17:31 WBC RBC Hgb Hct MCV MCH MCHC RDW Plt Count MPV Immature Gran % (Auto) Neut % (Auto) Lymph % (Auto) Haakon % (Auto) Eos % (Auto) Baso % (Auto) Lymph # (Auto) Haakon # (Auto) Eos # (Auto) Baso # (Auto) Abs Immat Gran (auto) Absolute Neuts (auto) Absolute Nucleated RBC Nucleated RBC % (auto) PT INR Sodium Potassium Chloride Carbon Dioxide Anion Gap BUN Creatinine Estim Creat Clear Calc Estimated GFR POC Glucose Random Glucose Calcium Total Bilirubin Direct Bilirubin AST ALT Alkaline Phosphatase Total Protein Albumin Urine Color Yellow Urine Appearance Clear Urine pH 7.0 Ur Specific [place] 1.020 Urine Protein Negative Urine Glucose (UA) Negative Urine Ketones Trace Urine Blood Negative Urine Nitrite Negative Ur Leukocyte Esterase Negative Stool Occult Blood POSITIVE COVID-19 (KATYA) Positive A COVID-19 Clin Com See Note Blood Type Antibody Screen 05/17/22 05/18/22 05/18/22 17:40 06:05 06:05 WBC 5.2 RBC 4.02 L Hgb 10.8 L Hct 32.8 L MCV 81.6 MCH 26.9 L MCHC 32.9 RDW 14.1 Plt Count 310 MPV 10.1 Immature Gran % (Auto) 0.4 Neut % (Auto) 68.6 Lymph % (Auto) 22.0 Haakon % (Auto) 7.8 Eos % (Auto) 0.6 Baso % (Auto) 0.6 Lymph # (Auto) 1.2 Haakon # (Auto) 0.4 Eos # (Auto) 0.0 Baso # (Auto) 0.0 Abs Immat Gran (auto) 0.02 Absolute Neuts (auto) 3.6 Absolute Nucleated RBC 0.000 Nucleated RBC % (auto) 0.0 PT INR Sodium 133 L Potassium 4.0 Chloride 105 Carbon Dioxide 24 Anion Gap 8 L BUN 12 Creatinine 0.76 Estim Creat Clear Calc 98.6 Estimated GFR > 60 POC Glucose Random Glucose 75 Calcium 9.2 Total Bilirubin Direct Bilirubin AST ALT Alkaline Phosphatase Total Protein Albumin Urine Color Urine Appearance Urine pH Ur Specific [place] Urine Protein Urine Glucose (UA) Urine Ketones Urine Blood Urine Nitrite Ur Leukocyte Esterase Stool Occult Blood COVID-19 (KATYA) COVID-19 Clin Com Blood Type O Positive Antibody Screen NEGATIVE 05/18/22 05/18/22 05/19/22 07:23 08:20 07:32 WBC 4.4 L RBC 4.27 L Hgb 11.5 L Hct 35.2 L MCV 82.4 MCH 26.9 L MCHC 32.7 RDW 14.6 Plt Count 324 MPV 9.6 Immature Gran % (Auto) Neut % (Auto) Lymph % (Auto) Haakon % (Auto) Eos % (Auto) Baso % (Auto) Lymph # (Auto) Haakon # (Auto) Eos # (Auto) Baso # (Auto) Abs Immat Gran (auto) Absolute Neuts (auto) Absolute Nucleated RBC 0.000 Nucleated RBC % (auto) 0.0 PT INR Sodium Potassium Chloride Carbon Dioxide Anion Gap BUN Creatinine Estim Creat Clear Calc Estimated GFR POC Glucose 66 148 H Random Glucose Calcium Total Bilirubin Direct Bilirubin AST ALT Alkaline Phosphatase Total Protein Albumin Urine Color Urine Appearance Urine pH Ur Specific [place] Urine Protein Urine Glucose (UA) Urine Ketones Urine Blood Urine Nitrite Ur Leukocyte Esterase Stool Occult Blood COVID-19 (KATYA) COVID-19 Clin Com Blood Type Antibody Screen 05/19/22 09:30 WBC RBC Hgb Hct MCV MCH MCHC RDW Plt Count MPV Immature Gran % (Auto) Neut % (Auto) Lymph % (Auto) Haakon % (Auto) Eos % (Auto) Baso % (Auto) Lymph # (Auto) Haakon # (Auto) Eos # (Auto) Baso # (Auto) Abs Immat Gran (auto) Absolute Neuts (auto) Absolute Nucleated RBC Nucleated RBC % (auto) PT INR Sodium Potassium Chloride Carbon Dioxide Anion Gap BUN Creatinine Estim Creat Clear Calc Estimated GFR POC Glucose Random Glucose Calcium Total Bilirubin Direct Bilirubin AST ALT Alkaline Phosphatase Total Protein Albumin Urine Color Urine Appearance Urine pH Ur Specific [place] Urine Protein Urine Glucose (UA) Urine Ketones Urine Blood Urine Nitrite Ur Leukocyte Esterase Stool Occult Blood COVID-19 (KATYA) Positive A COVID-19 Clin Com See Note Blood Type Antibody Screen Assessment and Plan Assessment Anesthesia Assessment: Chart Reviewed Final Anesthetic Review Family History of Problems with Anesthesia: No History of Problems with Anesthesia: Unobtainable Documented by User: Deena Dickerson MD 06/13/22 10:49 COUNTS INCLUDE 234 BEDS AT THE [facility] Active Problems Active Problems: Covid positive 05/19 22. Symptoms resolved Past Medical History Medical History Autism History of COVID-19 Hx of flexible sigmoidoscopy Surgical History History of Problems with Anesthesia: No Social History Social History Household Members: Family Housing: House Alcohol intake: never Patient Tobacco Use Status: Never used Tobacco Use of substances other than those prescribed or required for medical reasons: No Have you been hit, kicked, punched, or otherwise hurt by someone within the past year? If so, by whom?: No Are you DNR?: No Advance Directives Information Provided: Yes (will bring paperwork DOS) Advance Directives on File: No Poor oral hygiene: No service: No Current occupational status: disabled Meds Allergies Allergy/AdvReac Type Severity Reaction Status Date / Time dog dander [DOGS] Allergy Unknown UNK Verified 06/13/22 09:34 milk [MILK] Allergy Unknown UNK Verified 06/13/22 09:34 Home Medications Medication Instructions Recorded Confirmed Last Taken Type aripiprazole 5 mg tablet 7.5 mg PO BID 02/19/21 06/06/22 06/13/22 08:00 History clonidine HCl 0.1 mg tablet 0.2 mg PO BID 02/19/21 06/06/22 06/13/22 08:00 History escitalopram oxalate 5 mg tablet 5 mg PO BID 02/19/21 06/06/22 06/13/22 08:00 History methylphenidate HCl 54 mg 1 tab PO DAILY 02/19/21 06/06/22 06/13/22 08:00 History tablet,extended release 24 hr (Concerta) lorazepam 0.5 mg tablet 1 tab PO TID 12/30/21 06/06/22 06/13/22 08:00 History Exam Height,Weight and Vital Signs: Height 5 ft 7 in Weight 44.452 kg Vital Signs Temp Pulse Resp BP Pulse Ox O2 Del Method 06/13/22 09:59 97.9 F 55 15 95/57 L 100 Room Air Airway Mallampati Class: III (Small mouth opening) TM Dist: >3cm Neck ROM: Full Loose/Missing/Broken Teeth: No (Denies broken, loose, missing teeth) Heart: RRR Lungs: CTAB Assessment and Plan Assessment Anesthesia Assessment: Anesthesia Plan Discussed Final Anesthetic Review History of Problems with Anesthesia: No NPO: Yes ASA Class: II Final Preanesthetic Review: No Changes in Pt Med Stat, Meds/Allgs Chart Re viewed, Consent Obtained/Reviewed and Anes Risks/Benef Reviewed Patient Risk: Intermediate Procedure Risk: Low Assessment/Block/Sedation in SS: Assess/Block/Sedation-SS Anesthetic Plan Anesthetic Plan: MAC: Disposition: Standard PACU
--- NOTE | 2022-06-13 09:55 | MHC.SHP ---
Pre-Procedural Eval Section A Date of Service: 06/13/22 The History & Physical has been completed within 30 days and I have reviewed it.: Yes Section B Chief Complaint: Benign neoplasm of sigmoid colon Allergies: Allergies Allergy/AdvReac Type Severity Reaction Status Date / Time dog dander [DOGS] Allergy Unknown UNK Verified 06/13/22 09:34 milk [MILK] Allergy Unknown UNK Verified 06/13/22 09:34 Plan Diagnosis/Plan: Unchanged I have reviewed the history and physical and performed a pertinent physical examination on my patient. No changes have occurred unless specified. Time Spent With Patient Time: Total time managing care of this patient today ____ minutes.
[2022-06-13 09:59] VITALS: BP 95/57; PULSE 55; RESP 15; TEMP 36.6; O2SAT 100
[2022-06-13] MEDS: Lactated Ringers 1,000 ML 100 ML IVCONT (10:02)
[2022-06-13] MEDS: Sodium Phosphate,Mono-Dibasic 133 ML ENEMA PR ×2 (10:02→10:35)
--- NOTE | 2022-06-13 10:35 | PC.NURSE ---
mother states medium brooks liquid results. made aware. fleets x1 given at 1005, no results after 25 minutes. 2nd fleets ordered and given at 1030.
--- NOTE | 2022-06-13 11:01 | P.OP_ITS ---
Operative Note Operative Note Date of Service: 06/13/22 Narrative: Procedure: Colonoscopy Indication: Bleeding sigmoid polyp Endoscopist: Colleen Calderón MD Anesthesia Provider: Dr Aranza Corbin Anesthesia type: MAC Instrument: Olympus [id number]-H190L Consent: Indication, risks vs benefits, and alternatives were discussed with the patient's healthcare proxy (mother) who gave written informed consent to proceed. EKG, pulse, pulse oximetry and blood pressure were monitored throughout the procedure. Please see anesthesia flowsheet. Procedure: The patient was brought to the procedure room and placed in the left lateral decubitus position. IV medications were administered by the anesthesia provider in attendance. A digital rectal exam was performed which was normal. The colonoscope was then inserted through the anus and advanced through the colon to the cecum at 85 cm. Appendiceal orifice and ileocecal valve were identified. Mucosa was carefully examined under high definition white light as the instrument was slowly withdrawn in a retrograde panoramic fashion. Retroflexion was performed in rectum. The procedure was not difficult. There were no immediate obvious complications. The quality of the prep was BBPS: 2+1+2 = inadequate in transverse colon Withdrawal time 20 minutes. Limitations: Poor prep. Findings: Mucosa: Abnormal mucosa in sigmoid colon with erythema. Cold forceps biopsies were taken. Protruding lesions: * 1 pedunculated polyp of size 12 mm in sigmoid colon at 25 cm. Hot snare poly pectomy was performed. The polyp was completely removed and retrieved. * Small internal hemorrhoids without stigmata of recent bleeding. Impression: 1. Abnormal sigmoid colon mucosa ? prep artifact (biopsy) 2. Total of 1 polyp removed from sigmoid colon. 3. Internal hemorrhoids 4. Prep was not adequate for CRC screening however acceptable in this case as this was a diagnostic colonoscopy for bleeding polyp. Recommendations: - Follow path results. - Resume CRC screening at 47 y.o
[2022-06-13 12:03] VITALS: BP 93/64; PULSE 61; RESP 18; TEMP 36.1; O2SAT 100
[2022-06-13 12:18] VITALS: BP 108/57; PULSE 75; RESP 18; TEMP 36.1; O2SAT 100
[2022-06-13 12:33] VITALS: BP 111/78; PULSE 68; RESP 18; TEMP 36.2; O2SAT 100
== END 2022-06-13 12:55 | disposition home or self-care (01) ==
PROVIDERS: PCP Pediatrics; Visit Provider Internal Medicine
PROC: 0DJD8ZZ Inspection of Lower Intestinal Tract, Via Natural or Artificial Opening Endoscopic (ICD-10-PCS; CPT 45378; principal; 2022-06-13 10:30)
DX: K62.5 Hemorrhage of anus and rectum (principal); K63.5 Polyp of colon; K64.8 Other hemorrhoids; K55.9 Vascular disorder of intestine, unspecified; R53.83 Other fatigue; F84.0 Autistic disorder; F91.9 Conduct disorder, unspecified; Z79.899 Other long term (current) drug therapy; Z86.16 Personal history of COVID-19
CPT/HCPCS: 45385; 88305; J2370

== ENCOUNTER 2023-12-29 19:05 | Inpatient (IN) | payer OTHER, SELFPAY ==
--- NOTE | 2023-12-29 | ECG_ITS ---
Test Reason : tachycardia Blood Pressure : / mmHG Vent. Rate : 098 BPM Atrial Rate : 098 BPM P-R Int : 176 ms QRS Dur : 082 ms QT Int : 334 ms P-R-T Axes : 072 096 067 degrees QTc Int : 426 ms Normal sinus rhythm Possible Left atrial enlargement Rightward axis Borderline ECG No previous ECGs available Referred By: Generic ED Physician Electronically Signed By:PEPE LEIGH MD
--- NOTE | 2023-12-29 19:18 | MHC.EDTECH ---
pt changed over at this time, changed into hospital gown and placed on quality assurance monitor chassis, appears to be in no apparent distress
[2023-12-29 19:19] VITALS: BP 144/58; PULSE 127; PULSE 150; RESP 18; TEMP 36.6; O2SAT 95; O2SAT 96; BMI 16.5
[2023-12-29 19:28] VITALS: BP 144/58; PULSE 140; RESP 18; TEMP 36.6; O2SAT 95
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
[2023-12-29 21:55] VITALS: BP 122/81; PULSE 99; RESP 19; TEMP 36.8; O2SAT 95
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
[2023-12-29 23:33] LABS: Basophils Percent Auto 0.5 % (0-2); Eosinophils Percent Auto 0.5 % (0-4); Hemoglobin 13.1 g/dl (14.0-18.0); Imm Gran Abs Auto 0.01 X10*3/uL (0.00-0.03); Imm Gran Pct Auto 0.2 % (0.0-0.4); Lymphocytes Absolute Auto 1.9 X10*3/uL (1.2-4.9); MANUAL DIFF FLAG NO; Mean Corpuscular HGB Conc 34.5 g/dl (31.0-36.0); Mean Corpuscular Hemoglobin 28.5 pg (27.0-33.0); Mean Corpuscular Volume 82.6 fL (80.0-98.0); Mean Platelet Volume 10.2 fL (9.4-12.4); Monocytes Absolute Auto 0.4 X10*3/uL (0.1-1.2); Monocytes Percent Auto 5.9 % (2-11); Neutrophils Absolute Auto 3.9 x10*3/uL (2.0-8.3); Neutrophils Percent Auto 61.9 % (45-73); Platelet Count 198 X10*3/uL (160-400); Red Cell Distribution Width 12.5 % (11.0-16.0); White Blood Count 6.3 X10*3/uL (4.8-10.8)
[2023-12-29 23:56] LABS: Alanine Aminotransferase 9 U/L (0-40); Albumin Level 4.4 g/dL (3.5-5.0); Alkaline Phosphatase 91 U/L (39-117); Anion Gap 14 (12-20); Aspartate Amino Transferase 26 U/L (5-37); Bilirubin Direct 0.2 mg/dL (0.0-0.5); Bilirubin Total 0.6 mg/dL (0.0-1.0); Blood Urea Nitrogen 14 mg/dL (9-16); Calcium 9.6 mg/dL (8.4-10.2); Carbon Dioxide 24 mmol/L (22-29); Chloride 109 mmol/L (96-108); Creatinine Clr Calc Pharmacy 83.7; Estimated Glomerular Filt Rate > 60; Ethanol < 10 mg/dL; Glucose Random 93 mg/dL (60-115); Potassium 3.9 mmol/L (3.3-5.1); Sodium 143 mmol/L (135-145)
[2023-12-29 23:58] VITALS: PULSE 68; RESP 16; O2SAT 96
[2023-12-30 06:05] VITALS: BP 96/61; PULSE 73; RESP 14; O2SAT 96
[2023-12-30 12:54] LABS: Appearance Urine Cloudy; Color Urine Yellow; Glucose Urine UA Negative (Negative); Leukocyte Esterase Urine Negative (Negative); Nitrite Urine Negative (Negative); Specific Gravity - Urine >= 1.030 (1.005-1.025); UMIC TRIGGER UACC YES; Urine Blood Negative (Negative); Urine Ketones Negative (Negative); Urine Protein 30 (1+) mg/dL (Neg-Trace)
[2023-12-30 13:16] LABS: Bacteria Urine None Seen (None Seen); Hyaline Casts Urine 0-2 /LPF (0-2); Other Crystals Urine Present; RBC Urine 0-2 /HPF (0-2); Squamous Epithelial Cell Urine 0-2 /HPF (0-2); WBC Urine 0-5 /HPF (0-5)
[2023-12-30 14:20] LABS: Amphetamine Screen Urine Not Detected (Not Detect); Barbiturates, Urine Not Detected (Not Detect); Benzodiazepines Screen Urine Not Detected (Not Detect); Buprenorphine Scr Not Detected (Not Detect); Cannabinoid Screen Urine Not Detected (Not Detect); Cocaine Screen Urine Not Detected (Not Detect); Fentanyl, urine Not Detected (Not Detect); Methadone Screen, Urine Not Detected (Not Detect); Opiate Screen Urine Not Detected (Not Detect); Oxycodone Screen Urine Not Detected (Not Detect); Phencyclidine Screen Urine Not Detected (Not Detect)
--- NOTE | 2023-12-30 15:16 | MHC.CARE ---
Pts DDS transition coordinator is Mc Dorsey [phone]
[2023-12-30 18:41] VITALS: BP 140/91; PULSE 87; RESP 18; TEMP 37.1; O2SAT 99
[2023-12-30 18:42] VITALS: BMI 16.3
--- NOTE | 2023-12-30 18:43 | PC.ADMIT ---
Last is a 23-year-old male admitted from [facility] to M5 on a CV for treatment of anxiety and autism. Tox screen negative. Per crisis eval, pt was admitted to [facility] with [place] [employer] in restraints secondary to aggression and agitation at home. Pt became agitated when my mom would not add money to the [employer]. Pt reportedly became agitated and aggressive towards mother; hitting, kicking, yelling and throwing things. Pt does not have a history of inpatient psychiatric admissions. Upon arrival to , pt was alert, oriented, pleasant and cooperative. Constricted affect and poor eye contact. Pt did not apper to be responding to internal stimuli. Pt allowed for skin check which was unremarkable. Pt reported having head pain and declined to participate in remainder of assessment because he wanted to lay down. Pt currently denies SI/HII but will reach out to staff if thoughts occur. Pt placed on 15 minute safety checks.
[2023-12-30 20:00] VITALS: BP 135/88; PULSE 88; RESP 17; TEMP 36.8; O2SAT 99
[2023-12-31 08:14] VITALS: BP 123/75; PULSE 71; RESP 18; TEMP 37.1; O2SAT 98
[2023-12-31 08:54] LABS: Estimated Average Glucose 108 mg/dL; Hemoglobin A1c % 5.4 % (<6.0)
[2023-12-31 09:00] LABS: Cholesterol 172 mg/dL (<200); HDL Cholesterol 67 mg/dL (>40); LDL Cholesterol Calculated 91 mg/dL (<100); Magnesium 2.1 mg/dL (1.6-2.6); Triglycerides 71 mg/dL (<150)
[2023-12-31 09:15] LABS: Free T4 (Free Thyroxine) 0.92 ng/dL (0.71-1.85); Thyroid Stimulating Hormone 1.38 uIU/mL (0.32-4.0)
[2023-12-31] MEDS: hydrOXYzine HCL 25 MG TABLET PO ×2 (09:27→21:37)
[2023-12-31] MEDS: OLANZapine 5 MG TABLET PO (09:27)
[2023-12-31 09:29] LABS: Vitamin B12 404 pg/mL (200-900)
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
--- NOTE | 2023-12-31 13:12 | PHA.MEDREC ---
Pharmacy Consult ? Medication Reconciliation Pharmacy has completed the medication reconciliation. Spoke to mother Judy over the phone ([phone]) and she was able to confirm home meds and doses for the patient.
[2023-12-31 14:09] VITALS: BP 129/92
[2023-12-31] MEDS: cloNIDine HCL 0.1 MG TABLET PO (14:09)
[2023-12-31] MEDS: LORazepam 0.5 MG TABLET PO ×2 (14:09→21:40)
[2023-12-31] MEDS: ARIPiprazole 10 MG TABLET PO ×2 (14:27→21:37)
[2023-12-31] MEDS: Escitalopram Oxalate 10 MG TABLET PO ×2 (14:28→21:37)
[2023-12-31 15:13] VITALS: BMI 16.2
[2023-12-31 20:30] VITALS: BP 112/68; PULSE 100; RESP 16; TEMP 36.6; O2SAT 98
[2023-12-31] MEDS: Nicotine Polacrilex 2 MG GUM 4 MG BUCCAL (21:37)
[2023-12-31] MEDS: cloNIDine HCL 0.1 MG TABLET 0.3 MG PO (21:37)
[2024-01-01 08:00] VITALS: BP 87/69; PULSE 74; RESP 18; TEMP 36.5; O2SAT 74
[2024-01-01] MEDS: Escitalopram Oxalate 10 MG TABLET PO ×2 (09:38→21:55)
[2024-01-01] MEDS: ARIPiprazole 10 MG TABLET PO ×2 (09:38→21:55)
[2024-01-01 09:43] VITALS: BP 87/69
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
[2024-01-01] MEDS: cloNIDine HCL 0.1 MG TABLET PO (15:01)
[2024-01-01] MEDS: Methylphenidate HCl 10 MG TABLET PO (15:08)
[2024-01-01] MEDS: LORazepam 1 MG TABLET PO (15:20)
[2024-01-01 20:00] VITALS: BP 127/74; PULSE 134; RESP 16; TEMP 36.8; O2SAT 100
[2024-01-01 21:55] VITALS: BP 127/74
[2024-01-01] MEDS: cloNIDine HCL 0.1 MG TABLET 0.3 MG PO (21:55)
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
[2024-01-02 08:06] VITALS: BP 110/70; PULSE 74; RESP 16; TEMP 36.3; O2SAT 97
[2024-01-02 08:13] VITALS: BP 110/70
[2024-01-02] MEDS: ARIPiprazole 10 MG TABLET PO (08:13)
[2024-01-02] MEDS: cloNIDine HCL 0.1 MG TABLET PO (08:13)
[2024-01-02] MEDS: Escitalopram Oxalate 10 MG TABLET PO (08:14)
--- NOTE | 2024-01-02 08:56 | HO.PSYCHPN ---
Subjective Subjective Date of Service: 01/02/24 Reason For Visit: Autism, anxiety Interim History: Pt prepared for discharge. Denies SI/HI/AH/VH No current questions or concerns. Family to see that he arrives home safely. Medication Compliance: Yes Side effects from medications: No Attending Groups: Intermittent Review of Systems Acute medical concerns: No Review of Systems Review of Systems Yes all other systems are reviewed and are negative Mental Status Exam Mental Status Exam Patient Appearance: Appropriate Patient Orientation: Person, Place and Situation Level of Consciousness: Alert Patient Behavior: Appropriate Mood Description: Appropriate Affect Description: Appropriate Patient Cognition Impaired: No Ability to Follow Directions: Good Speech Pattern: Spontaneous Speech Judgement: Good Diagnostics Vital Signs (24Hr): Vital Signs - 24 hr 01/01/24 09:43 01/01/24 20:00 01/01/24 21:55 Temperature 98.2 F Pulse Rate 134 H Respiratory Rate 16 Blood Pressure 87/69 L 127/74 127/74 Pulse Oximetry 100 Oxygen Delivery Method Room Air 01/02/24 08:06 01/02/24 08:13 Temperature 97.4 F Pulse Rate 74 Respiratory Rate 16 Blood Pressure 110/70 110/70 Pulse Oximetry 97 Oxygen Delivery Method Room Air BMI result Body Mass Index 16.2 Labs 12/29/23 23:28 12/29/23 23:28 Labs: Laboratory Results - last 48 hr 12/31/23 08:20 Magnesium 2.1 Triglycerides 71 Cholesterol 172 LDL Cholesterol, Calc 91 HDL Cholesterol 67 Vitamin B12 404 Folate 13.0 TSH 1.38 Free T4 0.92 Medications Medications Current Medications Acetaminophen (Acetaminophen 325 Mg Tablet) 650 mg PO Q6H PRN PRN Reason: Headache/Pain Mild Scale (1-3) Al Hydroxide/Mg Hydroxide (Magnesium Hydrox/Alum Hydrox 30 Ml Oral.Susp) 30 ml PO Q6H PRN PRN Reason: Heartburn/Nausea Aripiprazole (Aripiprazole 10 Mg Tablet) 10 mg PO BID [facility] Last Admin: 01/02/24 08:13 Dose: 10 mg Clonidine HCl (Clonidine Hcl 0.1 Mg Tablet) 0.1 mg PO BID@0900,1500 [facility]; Protocol Last Admin: 01/02/24 08:13 Dose: 0.1 mg Clonidine HCl (Clonidine Hcl 0.1 Mg Tablet) 0.3 mg PO BEDTIME [facility] Last Admin: 01/01/24 21:55 Dose: 0.3 mg Escitalopram Oxalate (Escitalopram Oxalate 10 Mg Tablet) 10 mg PO BID [facility] Last Admin: 01/02/24 08:14 Dose: 10 mg Hydroxyzine HCl (Hydroxyzine Hcl 25 Mg Tablet) 25 mg PO Q6H PRN PRN Reason: Anxiety Last Admin: 12/31/23 21:37 Dose: 25 mg Lorazepam (Lorazepam 0.5 Mg Tablet) 0.5 mg PO TID PRN PRN Reason: SHAKING/ANXIETY Last Admin: 12/31/23 21:40 Dose: 0.5 mg Magnesium Hydroxide (Milk Of Magnesia 30 Ml Oral.Susp) 30 ml PO DAILY PRN PRN Reason: Constipation Methylphenidate HCl (Methylphenidate Hcl 10 Mg Tablet) 10 mg PO DAILY@1500 DONNY Last Admin: 01/01/24 15:08 Dose: 10 mg Nicotine (Nicotine 21 Mg Patch.Td24) 21 mg TRANSDERMA DAILY PRN PRN Reason: nicotine cravings Nicotine Polacrilex (Nicotine Polacrilex 2 Mg Gum) 4 mg BUCCAL Q2H PRN PRN Reason: Nicotine Cravings Last Admin: 12/31/23 21:37 Dose: 4 mg Pat Own Med ( Methylphenidate Hcl [Concerta] 36 Mg Tablet Extended Release 24h 2 tab PO DAILY DONNY Last Admin: 01/02/24 08:16 Dose: 2 tab Olanzapine (Olanzapine 5 Mg Tablet) 5 mg PO TID PRN PRN Reason: agitation, aggression Last Admin: 12/31/23 09:27 Dose: 5 mg Trazodone HCl (Trazodone Hcl 50 Mg Tablet) 50 mg PO BEDTIME MRX1 PRN PRN Reason: Insomnia Allergies Allergies Allergy/AdvReac Type Severity Reaction Status Date / Time dog dander [DOGS] Allergy Unknown UNK Verified 12/29/23 19:23 milk [MILK] Allergy Unknown UNK Verified 06/13/22 09:34 Assessment & Plan Assessment & Plan (1) Autism: Status: Acute Code(s): F84.0 - Autistic disorder (2) Acute anxiety: Status: Acute Code(s): F41.9 - Anxiety disorder, unspecified Plan 01/01: Discharge today Reason for continued inpatient stay Substantial Risk for: stable for discharge Time Spent With Patient Time: Total time managing care of this patient today ____ minutes.
== END 2024-01-02 11:30 | disposition home or self-care (01) | DRG 756 ==
LOC: HO.ED 12-30 14:37 → HO.PM5 12-30 16:50
PROVIDERS: Admitting Provider Clinical Nurse Specialist Psychiatric/Mental Health, Adult; Emergency Provider Emergency Medicine; Visit Provider Psychiatry & Neurology Psychiatry
DX: F41.9 Anxiety disorder, unspecified (principal); F84.0 Autistic disorder; Z79.899 Other long term (current) drug therapy
CPT/HCPCS: 36415; 80048; 80061; 80076; 80307; 81001; 82607; 82746; 83036; 83735; 84439; 84443; 85025; 93005; 99285; S9485

== ENCOUNTER → 2023-12-29 20:26 | Outpatient (BNV) | payer OTHER, SELFPAY | PROVIDERS: Emergency Provider Emergency Medicine; Visit Provider Internal Medicine Cardiovascular Disease | DX: R00.0 Tachycardia, unspecified (principal) | CPT/HCPCS: 93010 ==

== ENCOUNTER → 2023-12-30 16:49 | Outpatient (BNV) | payer OTHER, SELFPAY | PROVIDERS: Admitting Provider Clinical Nurse Specialist Psychiatric/Mental Health, Adult; Emergency Provider Emergency Medicine; Visit Provider Clinical Nurse Specialist Psychiatric/Mental Health, Adult | DX: F84.0 Autistic disorder (principal); F63.81 Intermittent explosive disorder | CPT/HCPCS: 99231; 99232; 99238; 99499 ==

== ENCOUNTER 2024-03-13 15:43 | Emergency (ER) | payer OTHER, SELFPAY ==
--- NOTE | ~2024-03-13 | XR_ITS ---
EXAMINATION: XR CHEST CLINICAL INFORMATION: Chest pain COMPARISON: None available. TECHNIQUE: 2 views of the chest were obtained. FINDINGS: No significant abnormality is noted involving the heart, lungs, mediastinum, bony thorax or soft tissues. XR/XR chest 2V IMPRESSION: Unremarkable examination. Electronically signed by: Dulce Maria Hare MD 03/13/2024 04:38 PM EDT
--- NOTE | 2024-03-13 15:45 | ECG_ITS ---
Test Reason : CHEST PAIN Blood Pressure : / mmHG Vent. Rate : 126 BPM Atrial Rate : 126 BPM P-R Int : 158 ms QRS Dur : 078 ms QT Int : 302 ms P-R-T Axes : 080 110 070 degrees QTc Int : 437 ms Sinus tachycardia Biatrial enlargement Right axis deviation Pulmonary disease pattern RSR' or QR pattern in V1 suggests right ventricular conduction delay Abnormal ECG When compared with ECG of 29-DEC-2023 20:26, T wave inversion no longer evident in Septal leads Referred By: Yuni Barksdale Electronically Signed By:KWESI FRANKS
[2024-03-13 16:12] VITALS: BP 128/91; PULSE 119; RESP 18; TEMP 36.5; O2SAT 100; BMI 14.9
--- NOTE | 2024-03-13 16:12 | ED_ITS ---
HPI - Chest Pain General Chief Complaint: Chest Pain Stated Complaint: chest pain Time Seen by Provider: 03/13/24 22:35 Source: patient and family Mode of arrival: ambulatory Limitations: no limitations History of Present Illness ED Provider: papo JERNIGAN narrative: Patient's history of autism complaining of chest pain since he has a no history of substance abuse patient is comfortable pain is constant not reproducible unable to explain about the pain patient had labs and cardiogram done before my evaluation which was normal Related Data Home Medications ?Medication ?Instructions ?Recorded ?Confirmed aripiprazole 5 mg tablet 10 mg PO BID 02/19/21 12/31/23 clonidine HCl 0.1 mg tablet 0.1 mg PO BID@0900,1500 02/19/21 12/31/23 escitalopram oxalate 5 mg tablet 10 mg PO BID 02/19/21 12/31/23 lorazepam 0.5 mg tablet 1 tab PO TID PRN shaking/anxiety 12/30/21 12/30/23 clonidine HCl 0.1 mg tablet 0.3 mg PO BEDTIME 12/31/23 12/31/23 methylphenidate HCl 10 mg tablet 10 mg PO DAILY@1500 12/31/23 12/31/23 methylphenidate HCl 36 mg 72 mg PO DAILY 12/31/23 12/31/23 tablet,extended release 24 hr (Concerta) Allergies Allergy/AdvReac Type Severity Reaction Status Date / Time dog dander [DOGS] Allergy Unknown UNK Verified 03/13/24 16:14 milk [MILK] Allergy Unknown UNK Verified 03/13/24 16:14 Review of Systems 2 Review of Systems: Yes all other systems are reviewed and are negative PMFSH Past Medical History Medical History Intermittent explosive disorder History of COVID-19 Hx of flexible sigmoidoscopy Autism Social History Social History Household Members: Family Housing: House Alcohol intake: never Patient Tobacco Use Status: Never used Tobacco Smoked in Last 30 Days: No Advance Directives: Yes Advance Directives on File: Yes Advance Directives Date on File: 01/05/24 Do you have a plan to hurt others: No Plan service: No Current occupational status: disabled Sexual orientation: Unable to collect Physical Exam 2 Vital Signs: Vital Signs: Last Vital Signs Temp 98.2 F 03/13/24 22:00 Pulse 99 03/13/24 22:00 Resp 18 03/13/24 22:00 BP 132/92 H 03/13/24 22:00 Pulse Ox 100 03/13/24 22:00 O2 Del Method Room Air 03/13/24 22:00 BMI result Body Mass Index 14.9 Appearance: Alert. Oriented X3. No acute distress. Eyes: PERRLA, No Nystagmus ENT: Pharynx normal. Oral Mucosa moist Neck: Normal inspection. Neck supple. CVS: Normal heart rate and rhythm. Pulses normal. Respiratory: No respiratory distress. Equal air entry bilateral, no wheezing/rales/rhonchi Abdomen: Soft and nontender. Bowel sounds are present, Skin: Skin warm and dry. Normal skin color. Normal skin turgor. Extremities: No lower extremity edema. No calf tenderness Neuro: Oriented X 3. No motor deficit. Course Course Course Narrative: This is an RME performed by Kamala Barksdale CNP: Additional HPI, ROS, PE not included below will be deferred to primary provider. Patient is a 23 year old male with past medical history of autism presents emergency department with mother for evaluation of reported chest pain pointing to his left anterior chest with a couple of fingers, poor appetite, states that he feels hungry and his stomach is growling but does not want to eat. Mother states that he has been very tired and fatigued, and she noted him to be quite sweaty. She states she has been checking his pulse at home with a meter and it has been ?really high?. Denies URI symptoms or recent known sick contacts. Mother states that approximately 2 weeks ago he was started on Seroquel 37.5 mg nightly Plan: Viral serologies, EKG Medical Decision Making Medical Decision Making [facility] Narrative: Patient has atypical chest pain without any ischemic changes in the EKG chest pain going on for more than 24 hours cardiac enzymes negative patient is not in any distress was tachycardic when he came likely from anxiety repeat vitals revealed heart rate of 99. Heart score of 0 discharge patient home with parents Lab Data [facility] Lab Attestation statement: I reviewed the patient's lab results. 03/13/24 17:08 03/13/24 17:08 Labs: Lab Results 03/13/24 Range/Units 17:08 WBC 5.4 (4.8-10.8) X10*3/uL RBC 5.21 (4.60-5.80) X10*6/uL Hgb 14.6 (14.0-18.0) g/dl Hct 43.2 (42.0-52.0) % MCV 82.9 (80.0-98.0) fL MCH 28.0 (27.0-33.0) pg MCHC 33.8 (31.0-36.0) g/dl RDW 12.5 (11.0-16.0) % Plt Count 216 (160-400) X10*3/uL MPV 10.3 (9.4-12.4) fL Immature Gran % (Auto) 0.2 (0.0-0.4) % Neut % (Auto) 60.9 (45-73) % Lymph % (Auto) 31.2 (20-40) % [place] % (Auto) 6.7 (2-11) % Eos % (Auto) 0.4 (0-4) % Baso % (Auto) 0.6 (0-2) % Lymph # (Auto) 1.7 (1.2-4.9) X10*3/uL [place] # (Auto) 0.4 (0.1-1.2) X10*3/uL Eos # (Auto) 0.0 (0.0-0.4) X10*3/uL Baso # (Auto) 0.0 (0.0-0.2) X10*3/uL Abs Immat Gran (auto) 0.01 (0.00-0.03) X10*3/uL Absolute Neuts (auto) 3.3 (2.0-8.3) x10*3/uL Absolute Nucleated RBC 0.000 (0.0-0.012) X10*3/uL Nucleated RBC % (auto) 0.0 (0.0-0.2) /100WBC PT 11.3 (10.9-12.4) SEC INR 1.0 (0.9-1.1) Sodium 142 (135-145) mmol/L Potassium 4.1 (3.3-5.1) mmol/L Chloride 106 (96-108) mmol/L Carbon Dioxide 27 (22-29) mmol/L Anion Gap 13 (12-20) BUN 16 (9-16) mg/dL Creatinine 1.01 (0.5-1.4) mg/dL Estim Creat Clear Calc 70.6 Estimated GFR > 60 Random Glucose 81 (60-115) mg/dL Calcium 10.2 D (8.4-10.2) mg/dL Magnesium 2.1 (1.6-2.6) mg/dL Total Bilirubin 0.8 (0.0-1.0) mg/dL AST 24 (5-37) U/L ALT 15 (0-40) U/L Alkaline Phosphatase 111 (39-117) U/L Troponin I High Sens < 2.7 (<3.5-35.0) ng/L Total Protein 8.6 H (6.5-8.0) g/dL Albumin 5.3 H (3.5-5.0) g/dL Lipase 31 (8-78) U/L Influenza Type A (PCR) NEGATIVE (Negative) Influenza Type B (PCR) NEGATIVE (Negative) RSV RNA Qual (PCR) NEGATIVE (Negative) SARS-CoV-2 RNA (RT-PCR) NEGATIVE (Negative) Independent Interpretation I performed an independent interpretation of an: EKG Interpretation: Sinus tachycardia with heart rate 126 beats per minute normal interval normal axis no acute ST-T changes no acute ischemia Discharge Plan Discharge Clinical Impression: Atypical chest pain Patient Disposition: Home, Self-Care Instructions: Noncardiac Chest Pain (ED) Additional Instructions: Continue medications and follow with your PCP Your chest pain is noncardiac likely muscular Take Tylenol for pain as needed Prescriptions: No Action clonidine HCl 0.1 mg tablet 0.1 mg PO BID@0900,1500 Rx Instructions: 1 tablet at 0830 and 1530, 3 tablets at bedtime aripiprazole 5 mg tablet 10 mg PO BID escitalopram oxalate 5 mg tablet 10 mg PO BID lorazepam 0.5 mg tablet 1 tab PO TID PRN (Reason: shaking/anxiety) clonidine HCl 0.1 mg Tablet 0.3 mg PO BEDTIME methylphenidate HCl 10 mg tablet 10 mg PO DAILY@1500 methylphenidate HCl [Concerta] 36 mg tablet extended release 24hr 72 mg PO DAILY Interventions: ED Discharge Assessment Last Done: 03/13/24 23:02 Print Language: Portuguese
[2024-03-13 17:15] LABS: MANUAL DIFF FLAG NO
[2024-03-13 17:17] LABS: Basophils Percent Auto 0.6 % (0-2); Eosinophils Percent Auto 0.4 % (0-4); Hematocrit 43.2 % (42.0-52.0); Hemoglobin 14.6 g/dl (14.0-18.0); Imm Gran Abs Auto 0.01 X10*3/uL (0.00-0.03); Imm Gran Pct Auto 0.2 % (0.0-0.4); Lymphocytes Absolute Auto 1.7 X10*3/uL (1.2-4.9); Lymphocytes Percent Auto 31.2 % (20-40); Mean Corpuscular HGB Conc 33.8 g/dl (31.0-36.0); Mean Corpuscular Volume 82.9 fL (80.0-98.0); Mean Platelet Volume 10.3 fL (9.4-12.4); Monocytes Absolute Auto 0.4 X10*3/uL (0.1-1.2); Monocytes Percent Auto 6.7 % (2-11); Neutrophils Absolute Auto 3.3 x10*3/uL (2.0-8.3); Neutrophils Percent Auto 60.9 % (45-73); Platelet Count 216 X10*3/uL (160-400); Red Blood Count 5.21 X10*6/uL (4.60-5.80); Red Cell Distribution Width 12.5 % (11.0-16.0); White Blood Count 5.4 X10*3/uL (4.8-10.8)
[2024-03-13 17:32] LABS: Alanine Aminotransferase 15 U/L (0-40); Albumin Level 5.3 g/dL (3.5-5.0); Alkaline Phosphatase 111 U/L (39-117); Anion Gap 13 (12-20); Aspartate Amino Transferase 24 U/L (5-37); Bilirubin Total 0.8 mg/dL (0.0-1.0); Blood Urea Nitrogen 16 mg/dL (9-16); Calcium 10.2 mg/dL (8.4-10.2); Carbon Dioxide 27 mmol/L (22-29); Chloride 106 mmol/L (96-108); Creatinine Clr Calc Pharmacy 70.6; Estimated Glomerular Filt Rate > 60; Glucose Random 81 mg/dL (60-115); Lipase 31 U/L (8-78); Magnesium 2.1 mg/dL (1.6-2.6); Potassium 4.1 mmol/L (3.3-5.1); Prothrombin Time 11.3 SEC (10.9-12.4); Sodium 142 mmol/L (135-145); Total Protein 8.6 g/dL (6.5-8.0)
[2024-03-13 17:40] LABS: Troponin-I High Sensitivity < 2.7 ng/L (<3.5-35.0)
[2024-03-13 17:53] LABS: Influenza A PCR NEGATIVE (Negative); Influenza B PCR NEGATIVE (Negative); Resp Syncy Virus RNA Qual PCR NEGATIVE (Negative); SARS COV2 PCR INHOUSE NEGATIVE (Negative)
[2024-03-13 22:00] VITALS: BP 132/92; PULSE 99; RESP 18; TEMP 36.8; O2SAT 100
--- NOTE | 2024-03-13 22:57 | PC.NURSE ---
handoff given to hansel paul
[2024-03-13 23:02] VITALS: BP 132/92; PULSE 99; RESP 18; TEMP 36.8; O2SAT 100
== END 2024-03-13 23:03 | disposition home or self-care (01) ==
PROVIDERS: Nurse Practitioner Family; Emergency Provider Internal Medicine
DX: R07.89 Other chest pain (principal); Z03.818 Encounter for observation for suspected exposure to other biological agents ruled out; Z79.899 Other long term (current) drug therapy
CPT/HCPCS: 0241U; 36415; 71046; 80053; 83690; 83735; 84484; 85025; 85610; 93005; 99284; 99285

== ENCOUNTER 2025-03-17 12:43 | Emergency (ER) | payer OTHER, SELFPAY ==
[2025-03-17 12:52] VITALS: RESP 16; BMI 18.5
[2025-03-17 13:01] VITALS: RESP 14
--- NOTE | 2025-03-17 13:05 | MHC.EDTECH ---
This tech did not itemize or complete patient belongings list. List inadvertently documented under this tech's pneumonic. Belongings list itemized by Jacob Kim Easyaula Sadiq.
--- NOTE | 2025-03-17 13:07 | PC.NURSE ---
Pt is extremely disregulated, rocking back and forth for comfort. Pt verbalizes feeling very anxious and unable to calm himself down. he reports to this RN that he has had a bad couple days , where he felt like he was not able to control his emotions. Pt endorses feeling angry sometimes. Pt is currently aggressively rocking back and forth in bed, day program worker present
--- NOTE | 2025-03-17 13:11 | PC.NURSE ---
unable to collect labs at this time due to patient anxiety
--- NOTE | 2025-03-17 13:19 | ED.GENADULT ---
HPI - General Adult General Chief complaint: Behavioral Concerns Stated complaint: AGGRESSIVE WITH PATIENTS, CURRENTLY C+C PER EMS Time Seen by Provider: 03/17/25 13:37 Source: patient, EMS and other ([facility] staff ) Mode of arrival: EMS Limitations: other (poor historian ) History of Present Illness ED Provider: DOMINIC Beal HPI narrative: This is a 24-year-old male history of autism, intermittent explosive disorder who presents to the emergency department from home with aggressive episode. He tells me he knew he was being aggressive and regrets it. He tells me sometimes he can not control it. He is feeling slightly anxious at this time and is asking for something for anxiety. Denies suicidal or homicidal ideation. Denies auditory visual and tactile hallucinations. He tells me he is getting overwhelmed by stimuli from TV and overwhelming conversations. Denies medical complaints at this time. breaker table worker at the bedside offers no more information and states that what patient is saying is accurate. Related Data Home Medications ?Medication ?Instructions ?Recorded ?Confirmed aripiprazole 5 mg tablet 10 mg PO BID 02/19/21 12/31/23 clonidine HCl 0.1 mg tablet 0.1 mg PO BID@0900,1500 02/19/21 12/31/23 escitalopram oxalate 5 mg tablet 10 mg PO BID 02/19/21 12/31/23 lorazepam 0.5 mg tablet 1 tab PO TID PRN shaking/anxiety 12/30/21 12/30/23 clonidine HCl 0.1 mg tablet 0.3 mg PO BEDTIME 12/31/23 12/31/23 methylphenidate HCl 10 mg tablet 10 mg PO DAILY@1500 12/31/23 12/31/23 methylphenidate HCl 36 mg 72 mg PO DAILY 12/31/23 12/31/23 tablet,extended release 24 hr (Concerta) Allergies Allergy/AdvReac Type Severity Reaction Status Date / Time dog dander (DOGS) Allergy Unknown UNK Verified 03/17/25 13:01 milk (MILK) Allergy Unknown UNK Verified 03/17/25 13:01 Review of Systems Review of Systems: Yes all other systems are reviewed and are negative PMFSH Past Medical History Attestation statement: The following information was validated with the patient. Source: old records reviewed and nursing notes reviewed Medical History Intermittent explosive disorder History of COVID-19 Hx of flexible sigmoidoscopy Autism Social History Social History Household Members: Family Housing: House Alcohol intake: never Patient Tobacco Use Status: Never used Tobacco Smoked in Last 30 Days: No Use of substances other than those prescribed or required for medical reasons: No Advance Directives: Yes Advance Directives on File: Yes Advance Directives Date on File: 01/05/24 service: No Current occupational status: disabled Sexual orientation: Unable to collect Physical Exam ED Exam Exam: Appearance: Alert.? Oriented X3.? No acute distress.? Head: Normocephalic, atraumatic, no step-offs or deformities Eyes: Pupils equal, round and reactive to light.? ENT: Pharynx normal.? Neck: Normal inspection.? Neck supple.? CVS: Normal heart rate and rhythm.? Pulses normal.? Respiratory: No respiratory distress.? Breath sounds normal.? Abdomen: Soft and nontender.? Skin: Skin warm and dry.? Normal skin color.? Normal skin turgor.? Extremities: No lower extremity edema.? No calf ttp. 5/5 strength to bilateral upper and lower extremities Neuro: Oriented X 3.? No motor deficit.? No sensory deficit. CN 2-12 intact Vital Signs: Vital Signs - 24 hr 03/17/25 12:52 03/17/25 13:01 Respiratory Rate 16 14 BMI result Body Mass Index 18.5 vss Course Reevaluation(s) Reevaluation #1: Patient was seen and evaluated by the care team who does not feel like patient requires higher level of care. He can be discharged home to current providers. He is feeling much better. Mother is here who is agreeable to discharge plan per care team Educated patient on diagnosis and treatment plan, answered all question, patient verbalizes understanding. At this time patient will be discharged home, advised to return with new or worsening symptoms. Educated on worrisome signs and symptoms and when to return. At this time I feel comfortable discharge home. Time: 15:00 Medications Administered Discontinued Medications Generic Name Dose Route Start Last Admin Trade Name Freq PRN Reason Stop Dose Admin Lorazepam 1 mg 03/17/25 13:21 03/17/25 13:27 Lorazepam 1 Mg Tablet PO 03/17/25 13:22 1 mg ONCE ONE Administration Medical Decision Making Medical Decision Making [facility] Narrative: 1323 24 year old male history of autism and intermittent explosive disorder presents with aggression from home however now feeling better slightly anxious. Physical exam patient alert and oriented x4. No focal neuro deficits. Following commands. Common cooperative History and physical exam significant for likely autism with intermittent explosive disorder. Low suspicion for electrolyte abnormalities. No signs of infection. Plan will try to obtain labs, urine Differential Diagnosis Differential Diagnoses: The differential diagnosis associated with the presentation includes (History and physical exam significant for likely autism with intermittent explosive disorder. Low suspicion for electrolyte abnormalities. No signs of infection.) Admission/Observation Consideration of admission/observation: Escalation of care including admission/observation considered Lab Data [facility] Lab Attestation statement: I reviewed the patient's lab results. Labs: Lab Results 03/17/25 Range/Units 14:01 Urine Color Yellow Urine Appearance Clear Urine pH 6.5 (5.0-9.0) Ur Specific [place] 1.010 (1.005-1.025) Urine Protein Negative (Neg-Trace) mg/dL Urine Glucose (UA) Negative (Negative) mg/dL Urine Ketones Negative (Negative) mg/dL Urine Blood Negative (Negative) Urine Nitrite Negative (Negative) Ur Leukocyte Esterase Negative (Negative) Urine Opiates Screen Not Detected (Not Detect) Ur Buprenorphine Scrn Not Detected (Not Detect) ng/mL Ur Oxycodone Screen Not Detected (Not Detect) ng/mL Urine Methadone Screen Not Detected (Not Detect) ng/mL Urine Fentanyl Screen Not Detected (Not Detect) Ur Barbiturates Screen Not Detected (Not Detect) Ur Phencyclidine Scrn Not Detected (Not Detect) Ur Amphetamines Screen Not Detected (Not Detect) U Benzodiazepines Scrn Not Detected (Not Detect) Urine Cocaine Screen Not Detected (Not Detect) U Marijuana (THC) Screen Not Detected (Not Detect) Independent Historian Clinical information obtained from an independent historian. History obtained from or confirmed by: Other (house worker) External Record Review External record reviewed: Inpatient record, Office record, Outpatient record, Prior outpatient labs, Prior outpatient radiology, Primary care record and Outside ED record Tests considered The following testing was considered but not selected: Considered labs however patient is autistic very anxious by the thought of this. Will hold. No suspicion for infection or electrolyte abnormalities. Chronic Conditions Patient?s care impacted by: Other (see hpi ) Social Determinants Patient?s care significantly limited by Social Determinants of Health including: Other Social Determinant of Health Discharge Plan Discharge Clinical Impression: Intermittent explosive disorder, Autism Patient Disposition: Home, Self-Care Additional Instructions: You were seen in our Emergency Department today for treatment of a behavioral health issue. It is important after your visit that you follow up with either your behavioral health provider or a primary care doctor within 7 days.? If you have trouble finding a therapist you can reach out to [place] [phone] [facility] [place] [facility] can be reached 7 days a week 24 hours a day.? Call [phone] to speak with someone.? Return for any worsening symptoms or concerns such as thoughts of self harm or harm to others. Please call 911 if you feel your mental health is worsening.? Prescriptions: No Action clonidine HCl 0.1 mg tablet 0.1 mg PO BID@0900,1500 Rx Instructions: 1 tablet at 0830 and 1530, 3 tablets at bedtime aripiprazole 5 mg tablet 10 mg PO BID escitalopram oxalate 5 mg tablet 10 mg PO BID lorazepam 0.5 mg tablet 1 tab PO TID PRN (Reason: shaking/anxiety) clonidine HCl 0.1 mg Tablet 0.3 mg PO BEDTIME methylphenidate HCl 10 mg tablet 10 mg PO DAILY@1500 methylphenidate HCl [Concerta] 36 mg tablet extended release 24hr 72 mg PO DAILY Referrals: Physician,Unknown J [Primary Care Provider, Medical] Print Language: Chinese
--- NOTE | 2025-03-17 13:27 | PC.NURSE ---
Pt took PO Ativan without issue
[2025-03-17 14:10] LABS: Appearance Urine Clear; Glucose Urine UA Negative (Negative); PH 6.5 (5.0-9.0); Specific Gravity - Urine 1.010 (1.005-1.025)
--- OUTSIDE RECORDS SUMMARY | 2025-03-17 14:17 | XMS_ITS | Encounter Summary ---
Author Organization [facility] Address [address] [place] [address] Phone Care Team Providers Care Caser In Name Role Phone Maurizio Caro MD Primary Care Provider [phone] Reason for Visit * Reason Comments Med Refill Encounter Details Date Type Department Care Team (Late st Contact Info) Description 11/12/2017 Refill [facility] [place] [address] [place] [address] Emory Mcdaniels MD [address] [place] [address] Acute seasonal allergic rhinitis due to pollen (Primary Dx); Encounter for routine child health examination without abnormal findings Social History Tobacco Use Types Packs/Day Years Used Date Smoking Tobacco: Never Comments:Never smoker Sex and Gender Information Value Date Recorded Sex Assigned at Male 11/24/2019 2:59 PM EDT Legal Sex Male 5:22 PM EDT Gender Identity Male 11/24/2019 2:59 PM EDT Sexual Orientation Straight 11/24/2019 2: 59 PM EDT documented as of this encounter Miscellaneous Notes * Telephone Encounter - Barbra Grace LPN - 11/12/2017 9:26 AM EDT Refill request for Loratadine. Last PE 10/19/17/JUVE documented in this encounter Plan of Treatment Not on file documented as of this encounter Visit Diagnoses Diagnosis Acute seasonal allergic rhinitis due to pollen- Primary Encounter for routine child health examination without abnormal findings documented in this encounter Care Teams Caser In Relationship Specialty Start Date End Date Maurizio Caro MD [address] [place] [address] [place] [address] PCP - General Pediatrics 06/02/19 09/10/23 documented as of this encounter
--- OUTSIDE RECORDS SUMMARY | 2025-03-17 14:17 | XMS_ITS | Encounter Summary ---
Author Organization [facility] Address [address] [place] [address] Phone Care Team Providers Care Hospice Entrance Attendant Name Role Phone Maurizio Caro MD Primary Care Provider [phone] Encounter Details Date Type Department Care Team (Late st Contact Info) Description 10/04/2014 Documentation [facility] [place] [address] [place] [address] Family Medicine, Physician [address] [place], [place] [id number] Social History Tobacco Use Types Packs/Day Years Used Date Smoking Tobacco: Never Assessed Sex and Gender Information Value Date Recorded Sex Assigned at Male 11/24/2019 2:59 PM EDT Legal Sex Male 5:22 PM EDT Gender Identity Male 11/24/2019 2:59 PM EDT Sexual Orientation Straight 11/24/2019 2: 59 PM EDT documented as of this encounter Plan of Treatment Not on file documented as of this encounter Visit Diagnoses Not on filedocumented in this encounter Care Teams Hospice Entrance Attendant Relationship Specialty Start Date End Date Maurizio Caro MD [address] [place] [address] PCP - General Pediatrics 06/02/19 09/10/23 documented as of this encounter
--- OUTSIDE RECORDS SUMMARY | 2025-03-17 14:17 | XMS_ITS | Encounter Summary ---
Author Organization [facility] Address [address] [place], [place] [id number] Phone Care Team Providers Care Program Coordinator Executive Education Name Role Phone Maurizio Caro MD Primary Care Provider [phone] Reason for Visit * Reason Comments Med Refill Encounter Details Date Type Department Care Team (Late st Contact Info) Description 11/07/2017 Refill [facility] [place] [address] [place] [address] Emory Mcdaniels MD [address] [place] [address] Encounter for routine child health examination without [...] encounter Miscellaneous Notes * Telephone Encounter - Yadira Colvin MA - 11/10/2017 9:31 AM EDT PE current 2018. Please refill the BP gel 10 % gel documented in this encounter Plan of Treatment Not on file documented as of this encounter Visit Diagnoses Diagnosis Encounter for routine child health examination without abnormal findings documented in this encounter Care Teams Program Coordinator Executive Education Relationship Specialty Start Date End Date Maurizio Caro MD [address] [place] [address] PCP - General Pediatrics 12/19/19 3/28/24 documented as of this encounter
--- OUTSIDE RECORDS SUMMARY | 2025-03-17 14:17 | XMS_ITS | Encounter Summary ---
Author Organization [facility] Address [address] [place] [address] Phone Care Team Providers Care Front Load Trash Truck Driver Name Role Phone Maurizio Caro MD Primary Care Provider [phone] Encounter Details Date Type Department Care Team (Late st Contact Info) Description 01/29/2017 Conversion Encounter [facility] [place] [address] [place] [address] Social History Tobacco Use Types Packs/Day Years [...] on filedocumented in this encounter Care Teams Front Load Trash Truck Driver Relationship Specialty Start Date End Date Maurizio Caro MD [address] [place] [address] PCP - General Pediatrics 06/02/19 09/10/23 documented as of this encounter
--- OUTSIDE RECORDS SUMMARY | 2025-03-17 14:17 | XMS_ITS | Encounter Summary ---
Author Organization [facility] Address [address] [place] [address] Phone Care Team Providers Care Ground Support Equipment Fitter Name Role Phone Maurizio Caro MD Primary Care Provider [phone] Encounter Details Date Type Department Care Team (Late st Contact Info) Description 11/01/2009 Documentation [facility] [place] Family Medicine [address] [place] [address] Family Medicine, Physician [address] [place] [address] Social History Tobacco Use Types Packs/Day Years [...] on filedocumented in this encounter Care Teams Ground Support Equipment Fitter Relationship Specialty Start Date End Date Maurizio Caro MD [address] [place] [address] PCP - General Pediatrics 06/02/19 09/10/23 documented as of this encounter
--- OUTSIDE RECORDS SUMMARY | 2025-03-17 14:17 | XMS_ITS | Clinical Summary ---
Author Organization [facility] Address [address] [place] [phone] Phone Care Team Providers Care Elementary Assistant Principal Name Role Phone Unavailable Primary Care Provider Unavailabl e Allergies Active Allergy Reactions Criticality Noted Date Comments Environmental Rash Low Lactose Diarrhea Medications cloNIDine 0.1 MG tablet Take by mouth. 5 Active methylphenidate 36 MG CR tablet 2 tablets every morning. 0 8 Active BP GEL 10 % gelIndications: Encounter for routine child health examination without abnormal findings APPLY A THIN FILM TOPICALLY TO THE AFFECTED SKIN AREAS DAILY DIRECTED 60 g 6 8 Active LORATADINE 10 MG tabletIndicatio ns:Encounter for routine child health examination without abnormal findings TAKE 1 TABLET BY MOUTH EVERY DAY 30 tablet 3 8 Active Diapers & Supplies (HUGGIES PULL-UPS) miscIndications :Urinary incontinence, unspecified type 1 each 6 (six) times a day. Up to 8 times a day 240 each 11 9 Active Disposable Gloves miscIndications :Autism 4 boxes medium size disposable gloves for incontinence care. Dx: Developmental citlalli, incontinence. 4 each 11 0 Active ARIPiprazole 5 MG tablet TK 1/2 T PO BID 0 0 Active ARIPiprazole 10 MG tablet 0 0 Active escitalopram 5 MG tablet TK 1 T PO QD UTD 0 0 Active desmopressin 0.2 MG tabletIndicatio ns:Nocturnal enuresis TAKE 1 TO 3 TABLETS BY MOUTH AT BEDTIME DIRECTED 90 tablet 11 0 Active LORazepam 0.5 MG tablet Take 0.5 mg by mouth 3 (three) times a day as needed. 2 Active escitalopram 10 MG tablet Take 5 mg by mouth in the morning and 5 mg before bedtime. 2 Active polyethylene glycol 17 GM/SCOOP powder MIX AND DRINK DIRECTED 2 Active Active Problems Problem Noted Date Diagnosed Date of parent 01/28/2022 Overview (01/28/2022): Father suddenly in April 2022 Complex care coordination 09/26/2019 Assessment & Plan (01/29/2023 11:16 AM EDT): Asked care managers to come in and discuss guardianship, trying to get him into a program. At this point sitting at home, watching TV. Assessment & Plan (01/28/2022 1:26 PM EDT): Care coordinators met with Last and Mom today. 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 Assessment & Plan (01/29/2023 11:23 AM EDT): Flags as needed labs because of medsmichele has not ordered so done in the office today. Assessment & Plan (01/28/2022 1:26 PM EDT): Recent increase in aggression, has had two admits related to behavior. Psychiatry is trying to adjust his medications Attention deficit disorder (ADD) without hyperac tivity 10/19/2017 Overview (10/19/2017): Taking Concerta 54 from psychiatry Nocturnal enuresis 10/19/2017 Overview (12/03/2020): 12/03- no longer taking DDAVP Also daytime accidents. Seen 12/[address] Noel in Urology at [facility]. Asking Gi for cleanout to help with enuresis. Getting a voiding diary and an [place] Assessment & Plan (01/29/2023 10:53 AM EDT): Still pull ups at night and day for enuresis Slow transit constipation 06/01/2014 Overview (11/02/2018): Followed by Dr Matthews. 10/31 - [facility] study planned Assessment & Plan (01/29/2023 11:19 AM EDT): Using miralax qod Autism 07/09/2009 Overview (11/24/2019): Seejunior Valentino, [facility] program in school. Assessment & Plan (01/29/2023 10:52 AM EDT): Sees Niurka Valentino, not in any school program at present due to behavior. Recent increase in meds due to agressiveness related to anxiety. Assessment & Plan (01/28/2022 10:48 AM EDT): Niurka Valentino prescribing meds, has zoom counseling thru [facility] Immunizations Immunization Administration Dates Next Due COVID-19 Pfizer, bivalent, 12+ years 01/29/2023 COVID-19 Pfizer, sreedhar-sucros e, 12+ years 01/28/2022 DTaP 5 07/21/2006, 4,2002,10/25,2002 H1N1 07/09/2009 HPV Vaccine 9 Valent 10/09/2015,12/11/2014 HPV, Quadrivalent 10/03/2014 Hep A, ped/adol 10/09/2015,10/03/2014 Hep B, ped/adol 03/28/2003,2002,2002 Hib (HbOC) 10/09/2003 Hib (PRP-T) 2002,2002,2002 IPV 07/21/2006, 3,2002,08/23 Influenza Split 07/15/2010 Influenza, injectable, quadrivalent 10/09/2015 Influenza, injectable, quadr ivalent, preservative free 11/24/2019,10/14/2016,09/20/2013 Influenza, injectable, trivalent 07/09/2009,08/2008 Influenza, intranasal, trivalent 07/07/2012,06/15 MMR 07/17/2003 MMRV 07/21/2006 Meningococcal Conj (Menactra) MCV4P 11/04/2018,0 10/03/2014 Pneumococcal Conjugate 07/03/2004,2002,2002,08/23 Tdap 10/03/2014 Varicella 07/17/2003 Family History Medical History Relation Name Comments Autism Brother Adams ADD / ADHD Mother cody Relation Name Status Comments Brother Adams Alive Mother cody Alive Biological Moth er: ADD/ADHD Other No family histo ry of High cholesterol, No family history of Diabetes mellitus Social History Tobacco Use Types Packs/Day Years Used Date Smoking Tobacco: Never Comments:Never smoker Hunger/Food Answer Date Recorded In the last 12 months, did y ou or your family ever eat less than you felt you should because there wasn't enough money for food? No 01/27/2023 Stable Housing Answer Date Recorded Are you worried that in the next 2 months you may not have stable housing? No 01/27/2023 Transportation Concerns Answer Date Rec orded In the last 12 months, have you or your family ever had to go without healthcare because you didn't have a way to get there? No 01/27/2023 Hazards in Home Answer Date Recorded Think about the place you li ve. Do you have problems with any of the following? Pests (mice or roaches), mold, no/not working smoke detectors, water leaks, no window guards. No 2022 Financing Utilities Answer Date Recorde d In the last 12 months, has t he electric, gas, oil, or water company threatened to shut off your services in your home? No 01/27/2023 Safety at Home Answer Date Recorded Are you or your family worried about feeling saf e in your home? No 01/27/2023 Outside Support Answer Date Recorded Do you feel that you need mo re support from other people or programs to help you care for yourself or your family? No 01/27/2023 Understanding Health Concerns Answer Da te Recorded Do you need help understandi ng your or your child's healthcare needs (diagnosis, medications, plan, etc.)? No 01/27/2023 Financing Health Concerns Answer Date R ecorded In the last 12 months, was t here a time when your child needed to see a doctor or get medications or supplies but could not because of cost? No 01/27/2023 Missing School or Work Answer Date Ciro rded Did you or your child miss s chool or work because of a health problem that could have been avoided? No 01/27/2023 Sex and Gender Information Value Date Recorded Sex Assigned at Male 11/24/2019 2:59 PM EDT Legal Sex Male 5:22 PM EDT Gender Identity Male 11/24/2019 2:59 PM EDT Sexual Orientation Straight 11/24/2019 2: 59 PM EDT Last Filed Vital Signs Vital Sign Reading Time Taken Comments Blood Pressure 120/78 01/29/2023 10:16 AM EDT Pulse 100 01/29/2023 10:16 AM EDT Temperature 36.1 C (96.9 F) 01/29/2023 10:16 AM EDT Respiratory Rate - - Oxygen Saturation - - Inhaled Oxygen Concentration - - Weight 44.9 kg (99 lb) 01/29/2023 10:16 AM EDT Height 173.4 cm (5' 8.25 ) 01/29/2023 10:16 AM E DT Body Mass Index 14.94 01/29/2023 10:16 AM EDT Plan of Treatment Health Maintenance Due Date Last Done Comments Men B Vaccine (1 of 2 - Standard) 2018 Glucose/HbA1C 03/05/2024 03/05/2023, 01/13, 01/28/2022, Additional history exists LDL-C/Cholesterol 03/05/2024 03/05/2023, , 11/24/2019 DTaP,Tdap,and Td Vaccines (7 - Td or Tdap) 10/03/2024 10/03/2014, 07/21/2006, 01/08/2004, Additional history exists Influenza Vaccines (#1) 2025 11/24/19 20, 10/14/2016, 10/09/2015, Additional history exists COVID-19 Vaccine (2024-07 6 season) 2025 01/29/2023, 01/28/2022, 01/29/2021, Additional history exists Hepatitis B Vaccines Completed 03/28/2003, 2002, 2002 HIB Vaccines Completed 10/09/2003, 12/13, 2002, Additional history exists Pneumococcal Vaccine Completed 07/03/2004, 2002, 2002, Additional history exists IPV Vaccines Completed 07/21/2006, 03/15, 2002, Additional history exists MMR Vaccines Completed 07/21/2006, 07/17/2003 Varicella Vaccines Completed 07/21/2006, 07/17/2003 HPV Vaccines Completed 10/09/2015, 11/14, 10/03/2014 Hepatitis A Vaccines Completed 10/09/2015, 10/04/19 15 Meningococcal Vaccine Completed 11/04/2018, 015 Procedures * Due to [place] law, this organization might not be sharing sensitive test results. Procedure Name Priority Date/Time Associated Diagnosis Comments LIPID PANEL Routine 03/05/2023 8:49 AM EDT Autism HEMOGLOBIN A1C Routine 03/05/2023 8:49 AM EDT Autism from Last 3 Months or Most Recently Relevant to Health Maintenance Results * Due to [place] law, this organization might not be sharing sensitive test results. * (ABNORMAL) Hemoglobin A1c (03/05/2023 8:49 AM EDT) Hemoglobin A1C 5.7(H) (4.0-5.6) % [facility] Comment: MONITORING: In known diabetic patients, hemoglobin A1c targets should be discussed with health care provider. DIAGNOSTIC USE: The [place] Diabetes Association (ADA) and the World Health Organization (WHO) recommend the use of HbA1c to diagnose diabetes using a threshold of 6.5%. Patients who have an HbA1c between 5.7% and 6.4% are considered at increased risk for developing diabetes in the future. CAUTION: Falsely low HbA1c results may be observed in patients with hemolytic anemia, homozygous forms of abnormal hemoglobin (e.g. SS, CC, SC), , recent blood loss or hemoglobin F greater than 7%. Fructosamine may be used as an alternate test in these cases. REFERENCE: ADA: Standards of Medical Care in Diabetes 2020, The Journal of Clinical and Applied Research and Education Volume 43, Supplement 1 Testing performed or reported by [facility], a Service of [address] [address] Lincoln Braden MD, Rn Wound Care CLIA# [id number] Blood 03/05/2023 8:49 AM EDT 03/05/2023 8:51 AM EDT us Maurizio Caro MD LAB BLOOD ORDERABLES Final Resul t Performing Organization Address [facility] Co de Phone Number [facility] * Lipid panel (03/05/2023 8:49 AM EDT) [facility] Cholesterol, Total 172 (<200) MG/DL [facility] HDL 62 (>39) MG/DL [facility] Non-HDL Cholesterol 110 (<160) MG/DL [facility] Comment: Testing performed or reported by [facility], a Service of [facility], [address] [place] [id number] Lincoln Braden MD, Rn Wound Care CLIA# [id number] Blood 03/05/2023 8:49 AM EDT 03/05/2023 8:50 AM EDT us Maurizio Caro MD LAB BLOOD ORDERABLES Final Resul t Performing Organization Address City/[facility]/ZIP Co de Phone Number [facility] from Last 3 Months or Most Recently Relevant to Health Maintenance
--- OUTSIDE RECORDS SUMMARY | 2025-03-17 14:17 | XMS_ITS | Encounter Summary ---
Author Organization [facility] Address [address] [place] [address] Phone Care Team Providers Care Terminal Superintendent Name Role Phone Maurizio Caro MD Primary Care Provider [phone] Reason for Visit * Reason Comments Med Refill Encounter Details Date Type Department Care Team ([facility] st Contact Info) Description 03/21/2020 Refill [facility] [place] [address] [place] [address] Jessica Flores MD [address] [place] [address] Nocturnal enuresis Social History Tobacco Use Types Packs/Day Years Used Date Smoking Tobacco: Never Comments:Never smoker Hunger/Food Answer Date Recorded No 03/10/2020 Stable Housing Answer Date Recorded No 03/10/2020 Transportation Concerns Answer Date Rec orded No 03/10/2020 Hazards in Home Answer Date Recorded No 11/04/2018 Financing Utilities Answer Date Recorde d No 11/04/2018 Safety at Home Answer Date Recorded No 11/04/2018 Outside Support Answer Date Recorded No 11/04/2018 Understanding Health Concerns Answer Da te Recorded No 11/04/2018 Financing Health Concerns Answer Date R ecorded No 11/04/2018 Missing School or Work Answer Date Ciro rded No 11/04/2018 Sex and Gender Information Value Date Recorded Sex Assigned at Male 11/24/2019 2:59 PM EDT Legal Sex Male 5:22 PM EDT Gender Identity Male 11/24/2019 2:59 PM EDT Sexual Orientation Straight 11/24/2019 2: 59 PM EDT documented as of this encounter Miscellaneous Notes * Telephone Encounter - Barbra Grace LPN - 03/21/2020 10:46 AM EDT Pt of DN-Refill request for desmopressin. Last PE 11/24/2019/JUVE documented in this encounter Plan of Treatment Not on file documented as of this encounter Visit Diagnoses Diagnosis Nocturnal enuresis documented in this encounter Care Teams Terminal Superintendent Relationship Specialty Start Date End Date Maurizio Caro MD [address] [place] [address] [place] [id number] PCP - General Pediatrics 06/02/19 09/10/23 documented as of this encounter
[2025-03-17 14:18] LABS: Cannabinoid Screen Urine Not Detected (Not Detect)
[2025-03-17 15:14] VITALS: BP 109/74; PULSE 76; RESP 16; TEMP 36.6; O2SAT 99
== END 2025-03-17 15:23 | disposition home or self-care (01) ==
PROVIDERS: Physician Assistant; Emergency Provider Emergency Medicine
DX: F63.81 Intermittent explosive disorder (principal); F84.0 Autistic disorder; F41.9 Anxiety disorder, unspecified
CPT/HCPCS: 80307; 81003; 99284; S9485

== ENCOUNTER 2025-06-01 10:12 | Inpatient (IN) | payer OTHER, SELFPAY ==
[2025-06-01 10:20] VITALS: BP 120/70; BP 121/76; PULSE 133; PULSE 141; RESP 16; TEMP 36.7; O2SAT 96; O2SAT 98; BMI 19.0
[2025-06-01 10:35] VITALS: RESP 16
--- NOTE | 2025-06-01 10:45 | MHC.CARE ---
Pt seen by [facility] in the community. Brought in with PD on a [place] [address]. [facility] to send assessment. Pt will be adult IPLOC per [facility].
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
[2025-06-01 10:50] LABS: MANUAL DIFF FLAG NO
[2025-06-01 10:56] LABS: Hematocrit 40.7 % (42.0-52.0); Hemoglobin 13.8 g/dl (14.0-18.0); Imm Gran Abs Auto 0.01 X10*3/uL (0.00-0.03); Imm Gran Pct Auto 0.2 % (0.0-0.4); Lymphocytes Absolute Auto 1.0 X10*3/uL (1.2-4.9); Mean Corpuscular HGB Conc 33.9 g/dl (31.0-36.0); Mean Corpuscular Hemoglobin 27.8 pg (27.0-33.0); Mean Corpuscular Volume 81.9 fL (80.0-98.0); NRBC Abs Auto 0.000 X10*3/uL (0.0-0.012); NRBC Pct Auto 0.0 /100WBC (0.0-0.2); Platelet Count 205 X10*3/uL (160-400); Red Blood Count 4.97 X10*6/uL (4.60-5.80); White Blood Count 5.2 X10*3/uL (4.8-10.8)
[2025-06-01 11:12] LABS: Alanine Aminotransferase 13 U/L (0-40); Albumin Level 4.8 g/dL (3.5-5.0); Alkaline Phosphatase 144 U/L (39-117); Anion Gap 12 (12-20); Aspartate Amino Transferase 26 U/L (5-37); Blood Urea Nitrogen 10 mg/dL (9-16); Calcium 9.8 mg/dL (8.4-10.2); Carbon Dioxide 27 mmol/L (22-29); Chloride 103 mmol/L (96-108); Creatinine Clr Calc Pharmacy 84.4; Estimated Glomerular Filt Rate > 60; Potassium 3.9 mmol/L (3.3-5.1); Sodium 138 mmol/L (135-145); Total Protein 7.7 g/dL (6.5-8.0)
--- NOTE | 2025-06-01 11:49 | ECG_ITS ---
Test Reason : CHECK PRLONG QT Blood Pressure : */* mmHG Vent. Rate : 90 BPM Atrial Rate : 90 BPM P-R Int : 182 ms QRS Dur : 80 ms QT Int : 340 ms P-R-T Axes : 64 82 46 degrees QTcB Int : 415 ms Normal sinus rhythm Possible Left atrial enlargement Borderline ECG When compared with ECG of 13-Mar-2024 15:41, No significant change was found Referred By: Brannon Francois Electronically Signed By: Rashid Dumont
--- NOTE | 2025-06-01 13:23 | PC.NURSE ---
Pt had episode of upset where it seems he was agitated by coughing and he was unable to express his upset so he began screaming into his pillow. He verbalizes to this RN afterwards that the cough is really making me mad . Pt provided with roshan munoz as well as michelle VELASCO
--- NOTE | 2025-06-01 13:50 | ED_ITS ---
HPI - Psych General Chief Complaint: Psychiatric Symptoms Stated Complaint: AUTISTIC EPISODE,COMBATIVE @SCENE,CALM,RESTRAINED Time Seen by Provider: 06/01/25 11:29 Source: patient, EMS, RN notes reviewed and old records reviewed Mode of arrival: EMS Limitations: no limitations History of Present Illness ED Provider: JIN Kessler HPI Narrative: 24-year-old male with medical history of autism, intermittent explosive disorder presents to the ED due to aggressive outburst at his day program. Patient states he was speaking with another resident who was upsetting him ( patient unable to describe what the conversation was about) when he got mad and became aggressive, not good . Patient also states that he has a cough which was upsetting to him and contributing to his aggression. When asking patient about the cough he is unable to tell me how long he has had it or its quality. patient states he had a very difficult time calming down After he was triggered today. Patient denies SI, HI, AVH, chest pain, shortness of breath, abdominal pain, nausea, vomiting, diarrhea, headaches Related Data Home Medications ?Medication ?Instructions ?Recorded ?Confirmed clonidine HCl 0.1 mg tablet 0.1 mg PO DAILY 02/19/21 1 08/02/24 escitalopram oxalate 5 mg tablet 10 mg PO BID 02/19/21 06/01/25 clonidine HCl 0.1 mg tablet 0.3 mg PO BEDTIME 12/31/23 06/01/25 methylphenidate HCl 10 mg tablet 15 mg PO DAILY@1500 0 12/31/23 06/01/25 methylphenidate HCl 36 mg 72 mg PO DAILY 12/31/2305/15 tablet,extended release 24 hr ([facility]cert[facility]) clonidine HCl 0.1 mg tablet 0.05 mg PO DIRECTED 06/01/25 Previous Rx's ?Medication ?Instructions ?Recorded hydroxyzine HCl 25 mg tablet 25 mg PO TID PRN mild anx iety 4 06/05/25 days #30 tabs lorazepam 0.5 mg tablet 0.5 mg PO TID shaking/severe 06/05/25 anxiety 15 days #0 tabs oxcarbazepine 300 mg tablet 300 mg PO BID Mood 30 day s #60 06/05/25 tabs risperidone 1 mg tablet 1 mg PO TID Mood 30 days #90 tabs 06/05/25 Allergies Allergy/AdvReac Type Severity Reaction Status Date / Time dog dander (DOGS) Allergy Unknown UNK Verified 06/01/25 10:31 milk (MILK) Allergy Unknown UNK Verified 06/01/25 10:31 Review of Systems 2 Review of Systems: Yes all other systems are reviewed and are negative [facility] Past Medical History Attestation statement: The following information was validated with the patient. Source: old records reviewed and nursing notes reviewed Medical History Intermittent explosive disorder History of COVID-19 Hx of flexible sigmoidoscopy Autism Social History Social History Household Members: Family Housing: Apartment Do you presently have visiting nurse or other home services: No Alcohol intake: never Patient Tobacco Use Status: Never used Tobacco Second Hand Smoke Exposure: No Advance Directives Date on File: 01/05/24 service: No Current occupational status: disabled Sexual orientation: Unable to collect Physical Exam 2 Vital Signs: Vital Signs: Last Vital Signs Temp 98.4 F 06/05/25 08:00 Pulse 115 H 06/05/25 08:00 Resp 20 06/04/25 20:00 BP 144/94 H 06/05/25 08:00 Pulse Ox 99 06/05/25 08:00 O2 Del Method Room Air 06/05/25 08:00 BMI result Body Mass Index 19.0 GENERAL APPEARANCE: ?AxOx4, generally well-appearing, no acute distress. HEENT: ?NC, AT. MMM. EOMI, clear conjunctiva, oropharynx clear. NECK: ?Supple without lymphadenopathy.? No stiffness or restricted ROM. HEART:? Normal rate and regular rhythm, normal S1/S2, no m/r/g LUNGS:? CTAB, moving air well. No crackles or wheezes are heard. ABDOMEN: ?Soft, nontender, nondistended with good bowel sounds heard. BACK: No CVAT, no obvious deformity. EXTREMITIES: ?Without cyanosis, clubbing or edema. NEUROLOGICAL: ?Grossly nonfocal. Alert and oriented, moving all 4 extremities. Observed to ambulate with normal gait. Skin: ?Warm and dry without any rash. Psych: Patient is more calm at this time, sitting at a table with intermittent eye contact, patient is cooperative Medications Administered Discontinued Medications Generic Name Dose Route Start Last Admin Trade Name Lucina PRN Reason Stop Dose Admin Benzonatate 100 mg 06/01/25 12:57 06/01/25 13:09 Benzonatate 100 Mg Capsule PO 06/01/25 12:58 100 mg ONCE ONE Administration Clonidine HCl 0.3 mg 06/01/25 21:00 06/04/25 22:27 Clonidine Hcl 0.1 Mg Tablet PO 0.3 mg BEDTIME DONNY Administration Protocol Clonidine HCl 0.05 mg 06/01/25 15:30 06/04/25 14:46 Clonidine Hcl 0.1 Mg Tablet PO 0.05 mg DAILY@1530 DONNY Administration Protocol Clonidine HCl 0.1 mg 06/02/25 09:00 06/05/25 08:47 Clonidine Hcl 0.1 Mg Tablet PO 0.1 mg DAILY DONNY Administration Protocol Escitalopram Oxalate 10 mg 06/01/25 21:00 06/05/25 08:47 Escitalopram Oxalate 10 Mg Tablet PO 10 mg BID DONNY Administration Haloperidol 2.5 mg 06/01/25 21:00 06/02/25 09:11 Haloperidol 0.5 Mg Tablet PO 2.5 mg BID DONNY Administration Hydroxyzine HCl 25 mg 06/01/25 15:30 06/04/25 22:28 Hydroxyzine Hcl 25 Mg Tablet PO 25 mg Q6H PRN Administration mild anxiety Lorazepam 1 mg 06/01/25 12:57 06/01/25 13:08 Lorazepam 1 Mg Tablet PO 06/01/25 12:58 1 mg ONCE ONE Administration Lorazepam 0.5 mg 06/01/25 15:30 06/01/25 15:47 Lorazepam 0.5 Mg Tablet PO 0.5 mg TID PRN Administration shaking/anxiety Lorazepam 0.5 mg 06/02/25 15:00 06/05/25 08:47 Lorazepam 0.5 Mg Tablet PO 0.5 mg TID DONNY Administration Methylphenidate HCl 15 mg 06/02/25 15:00 06/04/25 14:46 Methylphenidate Hcl 5 Mg Tablet PO 15 mg DAILY@1500 DONNY Administration Oxcarbazepine 300 mg 06/02/25 21:00 06/05/25 08:47 Oxcarbazepine 300 Mg Tablet PO 300 mg BID DONNY Administration Risperidone 1 mg 06/02/25 15:00 06/05/25 08:47 Risperidone 1 Mg Tablet PO 1 mg TID DONNY Administration Medical Decision Making Medical Decision Making [facility] Narrative: 24-year-old male with medical history of autism, intermittent explosive disorder presents to the ED due to aggressive outburst at his day program after being triggered by another resident there. Patient endorses a cough that has added to his agitation, but is unable to tell me how long he has had the cough or its quality. Upon entering the room and talking with the patient, patient states he needs something to feel more calm. VS on initial observation - BP 121/76, pulse rate of 133, respiratory rate of 16, afebrile with oral temp of 98.0?, O2 saturation 96% on room air. Upon entering the room when completing physical exam, patient had just been agitated and aggressive to behavioral health staff in the pod. When I entered the room patient was more calm at this time, lying on his bed in left-sided position and was requesting medication to feel more calm. Patient was medicated with 1 g p.o. Ativan, and 100 mg benzonatate for aggression/ anxiety and cough. On physical exam, patient is nontoxic appearing, in no acute distress, lungs clear to auscultation bilaterally without expiratory wheeze, or rhonchi noted, cardiac exam reveals normal rate and rhythm without murmurs/rubs/gallops, abdomen is soft, nontender, nondistended, no rigidity, no guarding, lower extremities without edema, psychiatrically, patient is more, at this time, and is able to follow the conversation and is cooperative, patient with intermittent eye contact EKG NSR without ST-elevation / depression, lengthened QT Labs without leukocytosis/ leukopenia, normocytic stable anemia with a hemoglobin of 13.8, hematocrit of 40.7, no electrolyte abnormalities, alkaline phosphatase elevated to 144 without abdominal pain. UA without evidence of blood or bacteria. Viral serology negative U tox negative Patient presents to ED by PD on section 12 and was evaluated by [facility] prior to arrival. Patient complains of a cough however is unable to tell me how long he has had the cough, qualities of the cough. on physical exam lungs clear to auscultation bilaterally, no expiratory wheeze or rhonchi/ coarse lung sounds auscultated, patient is afebrile, without leukocytosis or left shift no indication for advanced imaging at this time. Patient is medically cleared for adult IPLOC. Time: 06/01/2025, 18:01 hours,Provider: Brannon Francois MD Physician observation ended at 18:01 hours. Patient to be admitted as inpatient to psychiatry. Differential Diagnosis Differential Diagnoses: The differential diagnosis associated with the presentation includes Intermittent explosive disorder Autism Suicidal ideation Psych Admission/Observation Consideration of admission/observation: Escalation of care including admission/observation considered Consult Healthcare Provider Management of the patient was discussed with: Automatic Car Wash Attendant (Care team) Lab Data MDM Lab Attestation statement: I reviewed the patient's lab results. 06/01/25 10:36 06/01/25 10:36 Labs: Lab Results 06/01/25 06/01/25 06/01/25 Range/Units 10:36 13:10 13:59 WBC 5.2 (4.8-10.8) X10*3/uL RBC 4.97 (4.60-5.80) X10*6/uL Hgb 13.8 L (14.0-18.0) g/dl Hct 40.7 L (42.0-52.0) % MCV 81.9 (80.0-98.0) fL MCH 27.8 (27.0-33.0) pg MCHC 33.9 (31.0-36.0) g/dl RDW 12.6 (11.0-16.0) % Plt Count 205 (160-400) X10*3/uL MPV 11.0 (9.4-12.4) fL Immature Gran % (Auto) 0.2 (0.0-0.4) % Neut % (Auto) 65.9 (45-73) % Lymph % (Auto) 18.4 L (20-40) % [place] % (Auto) 10.3 (2-11) % Eos % (Auto) 4.8 H (0-4) % Baso % (Auto) 0.4 (0-2) % Lymph # (Auto) 1.0 L (1.2-4.9) X10*3/uL [place] # (Auto) 0.5 (0.1-1.2) X10*3/uL Eos # (Auto) 0.3 (0.0-0.4) X10*3/uL Baso # (Auto) 0.0 (0.0-0.2) X10*3/uL Abs Immat Gran (auto) 0.01 (0.00-0.03) X10*3/uL Absolute Neuts (auto) 3.4 (2.0-8.3) x10*3/uL Absolute Nucleated RBC 0.000 (0.0-0.012) X10*3/uL Nucleated RBC % (auto) 0.0 (0.0-0.2) /100WBC Sodium 138 (135-145) mmol/L Potassium 3.9 (3.3-5.1) mmol/L Chloride 103 (96-108) mmol/L Carbon Dioxide 27 (22-29) mmol/L Anion Gap 12 (12-20) BUN 10 (9-16) mg/dL Creatinine 1.10 (0.5-1.4) mg/dL Estim Creat Clear Calc 84.4 Estimated GFR > 60 Random Glucose 88 (60-115) mg/dL Calcium 9.8 (8.4-10.2) mg/dL Total Bilirubin 0.7 (0.0-1.0) mg/dL AST 26 (5-37) U/L ALT 13 (0-40) U/L Alkaline Phosphatase 144 H (39-117) U/L Total Protein 7.7 (6.5-8.0) g/dL Albumin 4.8 (3.5-5.0) g/dL Urine Color Yellow Urine Appearance Cloudy Urine pH 6.5 (5.0-9.0) Ur Specific [place] <= 1.005 (1.005-1.025) Urine Protein Negative (Neg-Trace) mg/dL Urine Glucose (UA) Negative (Negative) mg/dL Urine Ketones Negative (Negative) mg/dL Urine Blood Negative (Negative) Urine Nitrite Negative (Negative) Ur Leukocyte Esterase Negative (Negative) Urine Opiates Screen Not Detected (Not Detect) Ur Buprenorphine Scrn Not Detected (Not Detect) ng/mL Ur Oxycodone Screen Not Detected (Not Detect) ng/mL Urine Methadone Screen Not Detected (Not Detect) ng/mL Urine Fentanyl Screen Not Detected (Not Detect) Ur Barbiturates Screen Not Detected (Not Detect) Ur Phencyclidine Scrn Not Detected (Not Detect) Ur Amphetamines Screen Not Detected (Not Detect) U Benzodiazepines Scrn Not Detected (Not Detect) Urine Cocaine Screen Not Detected (Not Detect) U Marijuana (THC) Screen Not Detected (Not Detect) Ethyl Alcohol < 10 mg/dL Influenza Type A (PCR) NEGATIVE (Negative) Influenza Type B (PCR) NEGATIVE (Negative) RSV RNA Qual (PCR) NEGATIVE (Negative) SARS-CoV-2 RNA (RT-PCR) NEGATIVE (Negative) Independent Interpretation I performed an independent interpretation of an: EKG Interpretation: I personally interpreted the EKG which reveals normal sinus rhythm without ST- elevation / depression, lengthened QT Vent. Rate : 90 BPM Atrial Rate : 90 BPM P-R Int : 182 ms QRS Dur : 80 ms QT Int : 340 ms P-R-T Axes : 64 82 46 degrees QTcB Int : 415 ms Normal sinus rhythm Possible Left atrial enlargement Borderline ECG When compared with ECG of 13-Mar-2024 15:41, No significant change was found Independent Historian Clinical information obtained from an independent historian. History obtained from or confirmed by: EMS External Record Review External record reviewed: Inpatient record, Office record, Outpatient record and Prior outpatient labs Chronic Conditions Patient?s care impacted by: Other ( autism, intermittent explosive disorder) Social Determinants Patient?s care significantly limited by Social Determinants of Health including: Other Social Determinant of Health Discharge Plan Discharge Clinical Impression: Intermittent explosive disorder Patient Disposition: Admitted As Inpatient Interventions: Admission Worksheet (ED) Last Done: 06/01/25 18:01 Discharge Date/Time: 06/01/25 18:01
[2025-06-01 13:51] LABS: Resp Syncy Virus RNA Qual PCR NEGATIVE (Negative); SARS COV2 PCR INHOUSE NEGATIVE (Negative)
[2025-06-01 14:07] LABS: Appearance Urine Cloudy; Glucose Urine UA Negative (Negative); PH 6.5 (5.0-9.0); Specific Gravity - Urine <= 1.005 (1.005-1.025)
[2025-06-01 14:21] LABS: Cannabinoid Screen Urine Not Detected (Not Detect)
--- OUTSIDE RECORDS SUMMARY | 2025-06-01 15:14 | XMS_ITS | Clinical Summary ---
Author Organization [facility] Address [address] [place] [id number] Phone Care Team Providers Care Breading Machine Tender Name Role Phone Unavailable Primary Care Provider [...] 12/[address] Noel in Urology at [facility]. Asking Gi for cleanout to help with enuresis. Getting a voiding diary and an [place] Assessment & Plan (01/29/2023 10:53 AM EDT): Still pull ups at night and day for enuresis Slow transit constipation 06/01/2014 Overview (11/02/2018): Followed by Dr Matthews. 10/31 - [place] study planned Assessment & Plan (01/29/2023 11:19 AM EDT): Using miralax qod Autism 07/09/2009 Overview (11/24/2019): Seejunior Valentino, Rise program in school. Assessment & Plan (01/29/2023 10:52 AM EDT): Seejunior Valentino, not in any school program at present due to behavior. Recent increase in meds due to agressiveness related to anxiety. Assessment & Plan (01/28/2022 10:48 AM EDT): Niurka Valentino prescribing meds, has zoom counseling thru [facility] Encounters Date Type Department Care Team Description 04/13/2025 Telephone [facility] - [address] [address] Malgorzata Spencer MD Medical Records from Last 3 Months Immunizations Immunization Administration Dates Next Due COVID-19 [...] 10/14/2016, 10/09/2015, Additional history exists COVID-19 Vaccine (2024-2 6 season) 2025 01/29/2023, 01/28/2022, 01/29/2021, Additional [...] 015 Procedures * Due to [place] [employer] law, this organization might not be sharing sensitive test results. Procedure Name Priority Date/Time Associated Diagnosis Comments LIPID PANEL Routine 03/05/2023 8:49 AM EDT Autism HEMOGLOBIN A1C Routine 03/05/2023 8:49 AM EDT Autism from Last 3 Months or Most Recently Relevant to Health Maintenance Results * Due to [place] [employer] law, this organization might not be sharing sensitive test results. * (ABNORMAL) Hemoglobin A1c (03/05/2023 8:49 AM EDT) Hemoglobin A1C 5.7(H) (4.0-5.6) % [facility] Comment: MONITORING: In known diabetic patients, hemoglobin A1c targets should be discussed with health care provider. DIAGNOSTIC USE: The [place] Diabetes [employer] (ADA) and the World Health [...] Supplement 1 Testing performed or reported by [facility], a Service of [address] [address] Lincoln Braden MD, Biodiesel Production Technician CLIA# [id number] Blood 03/05/2023 8:49 AM EDT 03/05/2023 8:51 AM EDT us Maurizio Caro MD LAB BLOOD ORDERABLES Final Resul t Performing Organization Address [facility] Co de Phone Number [facility] * Lipid panel (03/05/2023 8:49 AM EDT) [facility] Cholesterol, Total 172 (<200) MG/DL [facility] HDL 62 (>39) MG/DL [facility] Non-HDL Cholesterol 110 (<160) MG/DL [facility] Comment: Testing performed or reported by [facility], a Service of [facility], [address] [place] [address] Lincoln Braden MD, Biodiesel Production Technician GUADALUPE# [id number] Blood 03/05/2023 8:49 AM EDT 03/05/2023 8:50 AM EDT us Maurizio Caro MD LAB BLOOD ORDERABLES Final Resul t Performing Organization Address [place]/[facility] Co de Phone Number [facility] from Last 3 Months or Most Recently Relevant to Health Maintenance
--- OUTSIDE RECORDS SUMMARY | 2025-06-01 15:14 | XMS_ITS | Encounter Summary ---
Author Organization [facility] Address [address] [place] [address] Phone Care Team Providers Care Statistics Teacher Name Role Phone Maurizio Caro MD Primary Care Provider [phone] Reason for Visit * Reason Comments Med Refill Encounter Details Date Type Department Care Team ([facility] st Contact Info) Description 03/21/2020 Refill [facility] [place] [address] [place] [address] Jessica Flores MD [address] [place] [address] Nocturnal enuresis Social History Tobacco Use Types [...] enuresis documented in this encounter Care Teams Statistics Teacher Relationship Specialty Start Date End Date Maurizio Caro MD [address] [place] [address] [place] [address] PCP - General Pediatrics 06/02/19 09/10/23 documented as of this encounter
--- OUTSIDE RECORDS SUMMARY | 2025-06-01 15:14 | XMS_ITS | Encounter Summary ---
Author Organization [facility] Address [address] [place], [place] [id number] Phone Care Team Providers Care Hvac Residential Service Technician Name Role Phone Maurizio Caro MD Primary Care Provider [phone] Reason for Visit * Reason Comments Med Refill Encounter Details Date Type Department Care Team (Late st Contact Info) Description 11/12/2017 Refill [facility] [place] [address] [place] [address] Emory Mcdaniels MD [address] [place] [address] Acute seasonal allergic rhinitis due to pollen [...] findings documented in this encounter Care Teams Hvac Residential Service Technician Relationship Specialty Start Date End Date Maurizio Caro MD [address] [place] [address] [place] [address] PCP - General Pediatrics 06/02/19 09/10/23 documented as of this encounter
--- OUTSIDE RECORDS SUMMARY | 2025-06-01 15:14 | XMS_ITS | Encounter Summary ---
Author Organization [facility] Address [address] [place], [place] [phone] Phone Care Team Providers Care Line Painting Machine Operator Name Role Phone Maurizio Caro MD Primary Care Provider [phone] Reason for Visit * Reason Comments Med Refill Encounter Details Date Type Department Care Team (Late st Contact Info) Description 11/07/2017 Refill [facility] [place] [address] [place] [address] Emory Mcdaniels MD [address] [place] [address] Encounter for routine child health examination without [...] findings documented in this encounter Care Teams Line Painting Machine Operator Relationship Specialty Start Date End Date Maurizio Caro MD [address] [place] [address] PCP - General Pediatrics 12/19/19 3/28/24 documented as of this encounter
--- OUTSIDE RECORDS SUMMARY | 2025-06-01 15:14 | XMS_ITS | Encounter Summary ---
Author Organization [facility] Address [address] [place] [address] Phone Care Team Providers Care Cascade Operator Name Role Phone Maurizio Caro MD Primary Care Provider [phone] Encounter Details Date Type Department Care Team (Late st Contact Info) Description 10/04/2014 Documentation [facility] [place] [address] [place] [address] Family Medicine, Physician [address] [place], [place] [id number] Social History Tobacco Use Types Packs/Day Years [...] on filedocumented in this encounter Care Teams Cascade Operator Relationship Specialty Start Date End Date Maurizio Caro MD [address] [place] [address] PCP - General Pediatrics 06/02/19 09/10/23 documented as of this encounter
--- OUTSIDE RECORDS SUMMARY | 2025-06-01 15:14 | XMS_ITS | Encounter Summary ---
Author Organization [facility] Address [address] [place] [address] Phone Care Team Providers Care Build Engineer Name Role Phone Maurizio Caro MD Primary Care Provider [phone] Encounter Details Date Type Department Care Team (Late st Contact Info) Description 11/01/2009 Documentation [facility] [place] Family Medicine [address] [place] [address] Family Medicine, Physician [address] [place] [address] Social History Tobacco Use Types [...] on filedocumented in this encounter Care Teams Build Engineer Relationship Specialty Start Date End Date Maurizio Caro MD [address] [place] [address] PCP - General Pediatrics 06/02/19 09/10/23 documented as of this encounter
--- OUTSIDE RECORDS SUMMARY | 2025-06-01 15:14 | XMS_ITS | Encounter Summary ---
Author Organization [facility] Address [address] [place] [address] Phone Care Team Providers Care Game Artist Name Role Phone Maurizio Caro MD Primary Care Provider [phone] Encounter Details Date Type Department Care Team (Late st Contact Info) Description 01/29/2017 Conversion Encounter [facility] [place] [address] [place] [address] Social History Tobacco Use Types Packs/Day Years [...] on filedocumented in this encounter Care Teams Game Artist Relationship Specialty Start Date End Date Maurizio Caro MD [address] [place] [address] PCP - General Pediatrics 06/02/19 09/10/23 documented as of this encounter
--- NOTE | 2025-06-01 15:39 | PHA.MEDREC ---
Pharmacy Consult ? Medication Reconciliation Pharmacy has reviewed the medication reconciliation completed by nursing.
[2025-06-01 15:49] VITALS: BP 142/93; PULSE 140; RESP 20; TEMP 36.9; O2SAT 100
[2025-06-01 17:56] VITALS: BP 117/66; PULSE 132; RESP 20; TEMP 36.6; O2SAT 98
[2025-06-01 17:57] VITALS: BMI 18.8
--- NOTE | 2025-06-01 17:58 | PC.NURSE ---
Pt arrived to unit at 1741 from [facility]. Pt cooperative with safety check. Skin check remarkable for slight discoloration to bilateral forearms. VS obtained and dinner selection called down to kitchen. Covering provider Keya Bass notified of pt's arrival to unit. Admission to be completed by assigned RN.
[2025-06-01 21:31] VITALS: BP 99/55
--- NOTE | 2025-06-01 23:03 | PC.NURSE ---
Patient wants to wait until tomorrow morning for his naso pharyngeal swab to be done.
--- NOTE | 2025-06-02 | EEG_ITS ---
History: 25-year-old male with past medical history of intermittent explosive disorder, autism presented to ED with aggressive behavior. Now admitted for inpatient stabilization Description: Medication:Acetaminophen Al Hydroxide/Mg Hydroxide Clonidine HCl Clonidine HCl Escitalopram Oxalate Haloperidol Hydroxyzine HCl Lorazepam Technical description:? Photic stimulation: Yes Hyperventilation:?Omitted Behavioral state: Cooperative, anxious State of Consciousness: awake Skull defect: None Sedation: None Handedness:Right Duration of study:?25 min ? ?0 sec Description: The waking background activity consists of poorly defined 8 hertz posterior alpha frequency intermixed anteriorly with muscle artifact. Scattered 5-6 hertz theta are seen over both hemispheres. Brief periods of sleep are recorded. Photic stimulation is without activation. Hyperventilation was omitted. Impression: This EEG is considered mildly abnormal due to mild scattered slowing in the frontotemporal distribution consistent with a mild encephalopathic process. MTDD
--- NOTE | 2025-06-02 03:13 | PC.NURSE ---
Addendum entered by Yazmin Nieto RN 06/02/25 03:22: Admission note: Patient was calm during the admission process and did not exhibit any aggressive behaviors. He was polite and participated in answering questions for the safety tool. Original Note: This life underwriter took over care of the patient at 1800, 06/01/25. Last was polite but tired. He denied any SI, HI, AVH, did not rate his depression or anxiety. He ate 75% of his dinner. He did not want to sign any releases of information, but said he feels safe on the unit. Patient declined to do nasal swab for his upper respiratory symptoms. His mother is his health care proxy and providers will need to contact her.
--- NOTE | 2025-06-02 08:24 | HO.PM.IMCN ---
History of Present Illness Data of Consult Service Date: 06/02/25 Primary Care Provider: Unknown Physician HPI Reason for consult: Medical consult 24-year-old male with past medical history of autism, intermittent explosive disorder, presented to the emergency department on a section 12 due to being aggressive in his day program. Initial workup revealed EKG with NSR without ST-elevation / depression, lengthened QT. No leukocytosis/ leukopenia, normocytic stable anemia with a hemoglobin of 13.8, hematocrit of 40.7, no electrolyte abnormalities, alkaline phosphatase elevated to 144 without abdominal pain. UA without evidence of blood or bacteria. On exam he has no medical concerns just reports that he gets mad. Review of Systems Review of Systems: Denies any shortness of breath, chest pain, headaches, dysuria, abdominal pain or discomfort, nausea, vomiting or diarrhea. Denies fever or chills. [facility] Medical History Intermittent explosive disorder History of COVID-19 Hx of flexible sigmoidoscopy Autism Social History Household Members: Family Housing: Apartment Do you presently have visiting nurse or other home services: No Alcohol intake: never Patient Tobacco Use Status: Never used Tobacco Smoked in Last 30 Days: No Second Hand Smoke Exposure: No Use of substances other than those prescribed or required for medical reasons: No Currently Displaying Signs/Symptoms of Drug Intoxication Withdrawal: No Have you been hit, kicked, punched, or otherwise hurt by someone within the past year? If so, by whom?: No Do you feel safe in your current relationship?: No Current Relationship Is there a partner from a previous relationship who is making you feel unsafe now?: No Are you made to feel afraid or neglected: No Spiritual Healthcare Practices: unknown Hindu Healthcare Practices: unknown Cultural Healthcare Practices: unknown Advance Directives: Yes Advance Directives Information Provided: No Advance Directives on File: Yes Advance Directives Date on File: 01/05/24 Do you have thoughts of harming others: None Do you have a plan to hurt others: No Plan Recently lost weight without trying: No Nutrition Risks: No Nutritional Risk service: No Current occupational status: disabled Sexual orientation: Unable to collect Meds Allergies Allergy/AdvReac Type Severity Reaction Status Date / Time dog dander (DOGS) Allergy Unknown UNK Verified 06/01/25 10:31 milk (MILK) Allergy Unknown UNK Verified 06/01/25 10:31 Active Medications: Current Medications Acetaminophen (Acetaminophen 325 Mg Tablet) 650 mg PO Q6H PRN PRN Reason: Headache/Pain, Scale 1-10 Al Hydroxide/Mg Hydroxide (Magnesium Hydrox/Alum Hydrox 30 Ml Oral.Susp) 30 ml PO Q6H PRN PRN Reason: Heartburn/Nausea Clonidine HCl (Clonidine Hcl 0.1 Mg Tablet) 0.3 mg PO BEDTIME [facility]; Protocol Last Admin: 06/01/25 21:31 Dose: 0.3 mg Clonidine HCl (Clonidine Hcl 0.1 Mg Tablet) 0.05 mg PO DAILY@1530 [facility]; Protocol Last Admin: 06/01/25 15:48 Dose: 0.05 mg Clonidine HCl (Clonidine Hcl 0.1 Mg Tablet) 0.1 mg PO DAILY [facility]; Protocol Escitalopram Oxalate (Escitalopram Oxalate 10 Mg Tablet) 10 mg PO BID [facility] Last Admin: 06/01/25 21:30 Dose: 10 mg Haloperidol (Haloperidol 0.5 Mg Tablet) 2.5 mg PO BID DON[facility] Last Admin: 06/01/25 21:30 Dose: 2.5 mg Hydroxyzine HCl (Hydroxyzine Hcl 25 Mg Tablet) 25 mg PO Q6H PRN PRN Reason: mild anxiety Last Admin: 06/01/25 15:47 Dose: 25 mg Lorazepam (Lorazepam 0.5 Mg Tablet) 0.5 mg PO TID PRN PRN Reason: shaking/anxiety Last Admin: 06/01/25 15:47 Dose: 0.5 mg Magnesium Hydroxide (Milk Of Magnesia 30 Ml Oral.Susp) 30 ml PO DAILY PRN PRN Reason: Constipation Methylphenidate HCl (Methylphenidate Hcl 5 Mg Tablet) 15 mg PO DAILY@1500 DONNY Non-Formulary Medication (Methylphenidate Hcl [Concerta]) 72 mg PO DAILY [facility] Trazodone HCl (Trazodone Hcl 50 Mg Tablet) 50 mg PO BEDTIME MRX1 PRN PRN Reason: Insomnia Home Medications ?Medication ?Instructions ?Recorded ?Confirmed ?Last Taken ?Type clonidine HCl 0.1 mg tablet 0.1 mg PO DAILY 02/19/21 06/01/25 06/01/25 History escitalopram oxalate 5 mg tablet 10 mg PO BID 02/19/21 06/01/25 06/01/25 History lorazepam 0.5 mg tablet 1 tab PO TID PRN shaking/anxiety 12/30/21 06/01/25 06/01/25 History clonidine HCl 0.1 mg tablet 0.3 mg PO BEDTIME 12/31/23 06/01/25 05/31/25 History methylphenidate HCl 10 mg tablet 15 mg PO DAILY@1500 12/31/23 06/01/25 06/01/25 History methylphenidate HCl 36 mg 72 mg PO DAILY 12/31/23 06/01/25 06/01/25 History tablet,extended release 24 hr (Concerta) clonidine HCl 0.1 mg tablet 0.05 mg PO DIRECTED 06/01/25 06/01/25 05/31/25 History haloperidol 5 mg tablet 2.5 mg PO BID 06/01/25 06/01/25 06/01/25 History Physical Exam Vital Signs and Narrative: Vital Signs: Last Vital Signs Temp 98 F 06/01/25 17:56 Pulse 132 H 06/01/25 17:56 Resp 20 06/01/25 17:56 BP 99/55 L 06/01/25 21:31 Pulse Ox 98 06/01/25 17:56 O2 Del Method Room Air 06/01/25 17:56 BMI result Body Mass Index 18.8 Alert and oriented X3, calm and cooperative. Answers questions. Thin, flat affect Neuro: CN II-X11 intact, no focal neurological deficits EYES: PERRLA, EOM intact ENT: Hearing intact, MMM Cardiac: S1 S2 RRR, No ectopy Pulmonary: lungs clear to auscultation, No increased WOB. Abdominal: BS active in all 4 quadrants, no guarding or tenderness MSK: Strength 5/5 upper and lower extremities : Deferred Extremities: No edema in lower extremities Psych: Flat affect Skin: Warm and dry, Intact Results Labs 06/01/25 10:36 06/01/25 10:36 Labs: Laboratory Results - last 24 hr 06/01/25 06/01/25 06/01/25 10:36 13:10 13:59 MCV 81.9 MCH 27.8 MCHC 33.9 RDW 12.6 Plt Count 205 MPV 11.0 Immature Gran % (Auto) 0.2 Neut % (Auto) 65.9 Lymph % (Auto) 18.4 L [place] % (Auto) 10.3 Eos % (Auto) 4.8 H Baso % (Auto) 0.4 Lymph # (Auto) 1.0 L [place] # (Auto) 0.5 Eos # (Auto) 0.3 Baso # (Auto) 0.0 Abs Immat Gran (auto) 0.01 Absolute Neuts (auto) 3.4 Absolute Nucleated RBC 0.000 Nucleated RBC % (auto) 0.0 Anion Gap 12 Estim Creat Clear Calc 84.4 Estimated GFR > 60 Random Glucose 88 Calcium 9.8 Total Bilirubin 0.7 AST 26 ALT 13 Alkaline Phosphatase 144 H Total Protein 7.7 Albumin 4.8 Urine Color Yellow Urine Appearance Cloudy Urine pH 6.5 Ur Specific [place] <= 1.005 Urine Protein Negative Urine Glucose (UA) Negative Urine Ketones Negative Urine Blood Negative Urine Nitrite Negative Ur Leukocyte Esterase Negative Urine Opiates Screen Not Detected Ur Buprenorphine Scrn Not Detected Ur Oxycodone Screen Not Detected Urine Methadone Screen Not Detected Urine Fentanyl Screen Not Detected Ur Barbiturates Screen Not Detected Ur Phencyclidine Scrn Not Detected Ur Amphetamines Screen Not Detected U Benzodiazepines Scrn Not Detected Urine Cocaine Screen Not Detected U Marijuana (THC) Screen Not Detected Ethyl Alcohol < 10 Influenza Type A (PCR) NEGATIVE Influenza Type B (PCR) NEGATIVE RSV RNA Qual (PCR) NEGATIVE SARS-CoV-2 RNA (RT-PCR) NEGATIVE Assessment and Plan (1) Intermittent explosive disorder: Status: Acute Plan 25-year-old male with past medical history of intermittent explosive disorder, autism presented to ED with aggressive behavior. Now admitted for inpatient stabilization Autism/intermittent explosive disorder Treatment per psychiatric team Thank you for allowing me to participate in the care of this patient. Will follow with you, please notify medical provider with any changes in condition or concerns.
[2025-06-02 08:26] VITALS: BP 93/55; PULSE 102; RESP 17; TEMP 36.4; O2SAT 99
[2025-06-02 08:58] LABS: Cholesterol 197 mg/dL (<200); HDL Cholesterol 58 mg/dL (>40); Magnesium 2.1 mg/dL (1.6-2.6); Triglycerides 102 mg/dL (<150)
[2025-06-02 09:07] LABS: Free T4 (Free Thyroxine) 0.89 ng/dL (0.71-1.85); Thyroid Stimulating Hormone 1.05 uIU/mL (0.32-4.0)
[2025-06-02 09:18] LABS: Folate 11.9 ng/mL (> or = 4.0); Vitamin B12 297 pg/mL (200-900)
--- NOTE | 2025-06-02 12:25 | HO.PSYADMNOT ---
HPI Date of Service: 06/02/25 Chief Complaint: Intermittent Explosive Disorder, Autism Sources of Information: patient interviewed, chart reviewed and crisis/core team assessment reviewed HPI Subjective Notes: Conditional Voluntary Narrative: Patient seen at 12:30 on 06/02/2025 Patient is a 24-year-old male with history of ASD, intermittent explosive disorder, who attends a day program, who presents for increasing dysregulated and aggressive behavior in the community. Patient is a limited historian with severe autism. He just keeps asking when he can go home. He acknowledged that he got angry at the the program. He said he does not know why accept that another person saying a song best with the best and he says he got mad. He said he did throw himself on the floor. Patient then just keeps asking when he can go home. He does say he likes the day program. He denies any SI or HI or AVH. senior living professional programmer analyst, Lauren talked with social contact worker She said this past week he started the day fine, happy and out of nowhere, had a moment where he was blankly staring and then he disrupted swearing, kicking, biting; they escorted him to quiet place but he was still wild and needed to be restrained; made verbal threats; they called 911 and patient attacked police and got restrained and brought to the hospital. Lauren says episodes can be brief or last for hours. 1. minor episodes 1-2x per week but patient is redirectable 2. major episode 1-2/month needing restraint she thinks these behaviors are worsening possibly due to multiple med changes starting this past summer; she also wonders if he is having possible seizures and his aggressive behaviors are part of being postictal... As often, he will get dysregulated after a moment where he is blankly staring. Tech Ed/Woodshop Teacher talked with patient's mother who visited on the unit: She says that his behaviors have been worsening over the past months and he has been brought to the emergency room numerous times; frequently gets discharge since whatever caused the dysregulation, resolves by the time he gets to the hospital and remain so (this was the case his last admission to in 2023). She agrees that there are numerous medication changes; she is not sure if that is what is contributing but despite the changes patient has become increasingly dysregulated. His episodes happen both at home and in the community and at the day program. She concurs that SOMETIMES episodes are preceded by him staring blankly for a few moments; but not always. And sometimes he will stare blankly and not get dysregulated. She agrees that he should be on a DDS unit. She is ambivalent about him staying here on the unit since the unit, knowing that he will have a very difficult time adjusting. She agrees with patient getting EEG which has been ordered Discussed medications with her and she agreed to the followin. Start Risperdal 1 mg t.i.d.. Patient has been on Haldol which was was recently decreased (due to sedation; he was getting a total daily dose of 15 mg, now down to 5 mg). Clearly not working anyway 2. Continue Trileptal which was started just a few weeks ago and titrated to 300 mg b.i.d. 3. Will continue Ativan 1 mg t.i.d. is supposed to be scheduled (would consider switching to clonazepam which is longer-acting) Relevant history: Dysregulation seemed to start coping years ago after his father moved out of the house and then . Since then patient's behaviors have been becoming increasingly challenging Past Psychiatric History: For psychiatric admission, Admitted to 12/31/2023 Since then multiple ED visits; some other psychiatric admissions; some DDS admissions Multiple medication trials and changes Medical Evaluation Reviewed: Hospitalist Kaitlin Pending [facility] Medical History Intermittent explosive disorder History of COVID-19 Hx of flexible sigmoidoscopy Autism Family History: siblings with autism Social History: Lives with mother and aunt and siblings; father 6 months ago Substance History: None Trauma History: deferred Diagnostics Vital Signs (24Hr): Vital Signs - 24 hr 06/01/25 15:49 06/01/25 17:56 06/01/25 21:31 Temperature 98.5 F 98 F Pulse Rate 140 H 132 H Respiratory Rate 20 20 Blood Pressure 142/93 H 117/66 99/55 L Pulse Oximetry 100 98 Oxygen Delivery Method Room Air Room Air 06/02/25 08:26 Temperature 97.6 F Pulse Rate 102 H Respiratory Rate 17 Blood Pressure 93/55 L Pulse Oximetry 99 Oxygen Delivery Method Room Air BMI result Body Mass Index 18.8 Labs 06/01/25 10:36 06/01/25 10:36 Labs: Laboratory Results - last 48 hr 06/01/25 06/01/25 06/01/25 10:36 13:10 13:59 WBC 5.2 RBC 4.97 Hgb 13.8 L Hct 40.7 L MCV 81.9 MCH 27.8 MCHC 33.9 RDW 12.6 Plt Count 205 MPV 11.0 Immature Gran % (Auto) 0.2 Neut % (Auto) 65.9 Lymph % (Auto) 18.4 L [place] % (Auto) 10.3 Eos % (Auto) 4.8 H Baso % (Auto) 0.4 Lymph # (Auto) 1.0 L [place] # (Auto) 0.5 Eos # (Auto) 0.3 Baso # (Auto) 0.0 Abs Immat Gran (auto) 0.01 Absolute Neuts (auto) 3.4 Absolute Nucleated RBC 0.000 Nucleated RBC % (auto) 0.0 Sodium 138 Potassium 3.9 Chloride 103 Carbon Dioxide 27 Anion Gap 12 BUN 10 Creatinine 1.10 Estim Creat Clear Calc 84.4 Estimated GFR > 60 Random Glucose 88 Estimat Average Glucose Hemoglobin A1c % Calcium 9.8 Magnesium Total Bilirubin 0.7 AST 26 ALT 13 Alkaline Phosphatase 144 H Total Protein 7.7 Albumin 4.8 Triglycerides Cholesterol LDL Cholesterol, Calc HDL Cholesterol Vitamin B12 Folate TSH Free T4 Urine Color Yellow Urine Appearance Cloudy Urine pH 6.5 Ur Specific [place] <= 1.005 Urine Protein Negative Urine Glucose (UA) Negative Urine Ketones Negative Urine Blood Negative Urine Nitrite Negative Ur Leukocyte Esterase Negative Urine Opiates Screen Not Detected Ur Buprenorphine Scrn Not Detected Ur Oxycodone Screen Not Detected Urine Methadone Screen Not Detected Urine Fentanyl Screen Not Detected Ur Barbiturates Screen Not Detected Ur Phencyclidine Scrn Not Detected Ur Amphetamines Screen Not Detected U Benzodiazepines Scrn Not Detected Urine Cocaine Screen Not Detected U Marijuana (THC) Screen Not Detected Ethyl Alcohol < 10 Influenza Type A (PCR) NEGATIVE Influenza Type B (PCR) NEGATIVE RSV RNA Qual (PCR) NEGATIVE SARS-CoV-2 RNA (RT-PCR) NEGATIVE 06/02/25 08:18 WBC RBC Hgb Hct MCV MCH MCHC RDW Plt Count MPV Immature Gran % (Auto) Neut % (Auto) Lymph % (Auto) [place] % (Auto) Eos % (Auto) Baso % (Auto) Lymph # (Auto) [place] # (Auto) Eos # (Auto) Baso # (Auto) Abs Immat Gran (auto) Absolute Neuts (auto) Absolute Nucleated RBC Nucleated RBC % (auto) Sodium Potassium Chloride Carbon Dioxide Anion Gap BUN Creatinine Estim Creat Clear Calc Estimated GFR Random Glucose Estimat Average Glucose 111 Hemoglobin A1c % 5.5 Calcium Magnesium 2.1 Total Bilirubin AST ALT Alkaline Phosphatase Total Protein Albumin Triglycerides 102 Cholesterol 197 LDL Cholesterol, Calc 119 H HDL Cholesterol 58 Vitamin B12 297 Folate 11.9 TSH 1.05 Free T4 0.89 Urine Color Urine Appearance Urine pH Ur Specific [place] Urine Protein Urine Glucose (UA) Urine Ketones Urine Blood Urine Nitrite Ur Leukocyte Esterase Urine Opiates Screen Ur Buprenorphine Scrn Ur Oxycodone Screen Urine Methadone Screen Urine Fentanyl Screen Ur Barbiturates Screen Ur Phencyclidine Scrn Ur Amphetamines Screen U Benzodiazepines Scrn Urine Cocaine Screen U Marijuana (THC) Screen Ethyl Alcohol Influenza Type A (PCR) Influenza Type B (PCR) RSV RNA Qual (PCR) SARS-CoV-2 RNA (RT-PCR) Meds/Allergies Meds Home Medications ?Medication ?Instructions ?Recorded ?Confirmed ?Type clonidine HCl 0.1 mg tablet 0.1 mg PO DAILY 02/19/21 06/01/25 History escitalopram oxalate 5 mg tablet 10 mg PO BID 02/19/21 06/01/25 History lorazepam 0.5 mg tablet 1 tab PO TID PRN shaking/anxiety 12/30/21 06/01/25 History clonidine HCl 0.1 mg tablet 0.3 mg PO BEDTIME 12/31/23 06/01/25 History methylphenidate HCl 10 mg tablet 15 mg PO DAILY@1500 12/31/23 06/01/25 History methylphenidate HCl 36 mg 72 mg PO DAILY 12/31/23 06/01/25 History tablet,extended release 24 hr (Concerta) clonidine HCl 0.1 mg tablet 0.05 mg PO DIRECTED 06/01/25 06/01/25 History haloperidol 5 mg tablet 2.5 mg PO BID 06/01/25 06/01/25 History Allergies Allergies Allergy/AdvReac Type Severity Reaction Status Date / Time dog dander (DOGS) Allergy Unknown UNK Verified 06/01/25 10:31 milk (MILK) Allergy Unknown UNK Verified 06/01/25 10:31 Mental Status Exam Mental Status Exam Narrative: Pt is alert and oriented; behavior is cooperative, anxious and repeatedly asking when he can go home; patient is not in distress; dressed in hospital attire with unkempt hair, marginal hygiene; elongated neck; mood is described as good and affect constricted; eye contact avoidant Speech is normal rate, volume and prosody and not pressured; no psychomotor agitation/retardation present; thought process is goal directed, very concrete; Thought content is on going home; otherwise pertinent to relevant topics and without any delusional content, paranoid ideations or grandiosity; denies any SI/HI. Denies AVH; There is no evidence of perceptual disturbance. Patients insight and judgment impaired but at baseline Assessment & Plan Assessment & Plan (1) Autism: Status: Acute Code(s): F84.0 - Autistic disorder (2) Intermittent explosive disorder: Status: Acute Code(s): F63.81 - Intermittent explosive disorder Plan HPI: Patient is a 24-year-old male with history of ASD, intermittent explosive disorder, who attends a day program, who presents for increasing dysregulated and aggressive behavior in the community. Patient is a limited historian with severe autism. He just keeps asking when he can go home. He acknowledged that he got angry at the the program. He said he does not know why accept that another person saying a song best with the best and he says he got mad. He said he did throw himself on the floor. Patient then just keeps asking when he can go home. He does say he likes the day program. He denies any SI or HI or AVH. senior living professional programmer analyst, Lauren talked with social contact worker She said this past week he started the day fine, happy and out of nowhere, had a moment where he was blankly staring and then he disrupted swearing, kicking, biting; they escorted him to quiet place but he was still wild and needed to be restrained; made verbal threats; they called 911 and patient attacked police and got restrained and brought to the hospital. Lauren says episodes can be brief or last for hours. 1. minor episodes 1-2x per week but patient is redirectable 2. major episode 1-2/month needing restraint she thinks these behaviors are worsening possibly due to multiple med changes starting this past summer; she also wonders if he is having possible seizures and his aggressive behaviors are part of being postictal... As often, he will get dysregulated after a moment where he is blankly staring. Tech Ed/Woodshop Teacher talked with patient's mother who visited on the unit: She says that his behaviors have been worsening over the past months and he has been brought to the emergency room numerous times; frequently gets discharge since whatever caused the dysregulation, resolves by the time he gets to the hospital and remain so (this was the case his last admission to in 2023). She agrees that there are numerous medication changes; she is not sure if that is what is contributing but despite the changes patient has become increasingly dysregulated. His episodes happen both at home and in the community and at the day program. She concurs that SOMETIMES episodes are preceded by him staring blankly for a few moments; but not always. And sometimes he will stare blankly and not get dysregulated. She agrees that he should be on a DDS unit. She is ambivalent about him staying here on the unit since the unit, knowing that he will have a very difficult time adjusting. She agrees with patient getting EEG which has been ordered Discussed medications with her and she agreed to the followin. Start Risperdal 1 mg t.i.d.. Patient has been on Haldol which was was recently decreased (due to sedation; he was getting a total daily dose of 15 mg, now down to 5 mg). Clearly not working anyway 2. Continue Trileptal which was started just a few weeks ago and titrated to 300 mg b.i.d. 3. Will continue Ativan 1 mg t.i.d. is supposed to be scheduled (would consider switching to clonazepam which is longer-acting) Relevant history: Dysregulation seemed to start coping years ago after his father moved out of the house and then . Since then patient's behaviors have been becoming increasingly challenging Formulation/clinical reasoning: Patient has autism; increasing episodes of behavioral disruption, agitation and aggression. Patient is very limited historian and can not discuss this. Per mom there have been numerous medication changes over the past months; she does not know them all, making it very difficult to know how to proceed. Also today is a Thursday, the week before Miranda and outpatient provider is only in her office on Wednesdays... What patient needs most is a DDS unit that can meet his needs more adequately and during which time the inpatient team can confer with the outpatient team. Tech Ed/Woodshop Teacher is concerned that M5 is inadequate to keep patient for much duration; patient's mother feels similarly. She agrees for him to remain the weekend. There is some correlation between patient staring blankly for few moments just prior to his outbursts; Tech Ed/Woodshop Teacher will order EEG to see if it can be helpful. Will DC Haldol which clearly has not been helping and start risperidone instead. Plan: CV Q 15 minute checks Ordered EEG Start risperidone 1 mg t.i.d. Continue Ativan 1 mg t.i.d. Continue Trileptal 300 mg b.i.d. (started a few weeks ago) -if it is possible to transfer patient from our unit to a DDS unit that would be best; otherwise will defer to patient's mother regarding discharge and taking him home Patient educated on: diagnosis, medication risk/benefits and therapeutic strategies Guardian/Caregiver educated on: diagnosis and medication risk/benefits Informed Consent: understands, does not understand and further education needed Reason for continued inpatient stay Substantial Risk for: rapid decompensation Statement Statement: I have reviewed the history and physical and performed a pertinent examination on my patient. No changes have occurred unless specified. If the History and Physical was not performed prior to admission, the Hospitalist's service will be consulted for completing the admission physical. Time Spent With Patient Time: Total time managing care of this patient today ____ minutes.
[2025-06-02 12:35] LABS: Chlamydia pneumoniae PCR Not Detected (Not Detect.); Coronavirus 229E PCR Not Detected (Not Detect.); Coronavirus HKU1 PCR Not Detected (Not Detect.); Coronavirus NL63 PCR Not Detected (Not Detect.); Coronavirus OC43 PCR Not Detected (Not Detect.); RSV PCR Not Detected (Not Detect.); Rhino/Enterovirus PCR Detected (Not Detect.)
[2025-06-02 12:37] LABS: SARS-CoV-2 PCR Not Detected (Not Detect.)
[2025-06-02 12:38] LABS: Influenza A H1 PCR Not Detected (Not Detect.); Influenza A H1-2009 PCR Not Detected (Not Detect.); Influenza A H3 PCR Not Detected (Not Detect.)
[2025-06-02 15:09] VITALS: BP 134/75
[2025-06-02 20:00] VITALS: BP 107/55; PULSE 114; TEMP 37.2; O2SAT 96
[2025-06-02 21:10] VITALS: BP 104/55
[2025-06-03 08:00] VITALS: BP 108/56; PULSE 87; RESP 18; TEMP 37.1; O2SAT 95
[2025-06-03 14:29] VITALS: BP 138/96
[2025-06-03 14:36] VITALS: PULSE 140; RESP 18; O2SAT 100
--- NOTE | 2025-06-03 15:26 | HO.PSYCHPN ---
Subjective Subjective Date of Service: 06/03/25 Reason For Visit: Intermittent Explosive Disorder, Autism Interim History: Laying in bed. keeping to self. Patient reports feeling okay today; he reports sleeping well last night. focused on discharge. Patient would like to know when he will be able to return home; pt was encouraged to speak with his primary team. he denies SI/HI/VH/AH. Continue tx plan. Medication Compliance: Yes Side effects from medications: No Mental Status Exam Mental Status Exam Patient Appearance: Appropriate Patient Orientation: Person, Place and Situation Level of Consciousness: Awake Patient Behavior: Appropriate and Cooperative Mood Description: Calm Affect Description: Calm Ability to Follow Directions: Good Speech Pattern: Clear Hallucinations: None Delusions: Not Present Thought Process: Intact Thought Content: positive for Intact Diagnostics Vital Signs (24Hr): Vital Signs - 24 hr 06/02/25 20:00 06/02/25 21:10 06/03/25 08:00 Temperature 99.0 F 98.8 F Pulse Rate 114 H 87 Respiratory Rate 18 Blood Pressure 107/55 L 104/55 L 108/56 L Pulse Oximetry 96 95 Oxygen Delivery Method Room Air Room Air 06/03/25 14:29 06/03/25 14:36 Temperature Pulse Rate 140 H Respiratory Rate 18 Blood Pressure 138/96 H Pulse Oximetry 100 Oxygen Delivery Method Room Air BMI result Body Mass Index 18.8 Labs 06/01/25 10:36 06/01/25 10:36 Labs: Laboratory Results - last 48 hr 06/02/25 06/02/25 08:18 09:30 Estimat Average Glucose 111 Hemoglobin A1c % 5.5 Magnesium 2.1 Triglycerides 102 Cholesterol 197 LDL Cholesterol, Calc 119 H HDL Cholesterol 58 Vitamin B12 297 Folate 11.9 TSH 1.05 Free T4 0.89 Respiratory Panel [place] See Note Adenovirus (Rapid PCR) Not Detected B.pert (TEM-PCR) Not Detected B.parapertussis DNA PCR Not Detected C. pneumoniae DNA (PCR) Not Detected Coronavirus OC43 (PCR) Not Detected Coronavirus HKU1 (PCR) Not Detected Coronavirus 229E (PCR) Not Detected Coronavirus NL63 (PCR) Not Detected Human Metapneumovir PCR Not Detected Influenza A (RT-PCR) Not Detected Influenza A (H1) PCR Not Detected Influ A (H1/09) PCR Not Detected Influenza A (H3) PCR Not Detected Influenza B (RT-PCR) Not Detected M. pneumoniae (PCR) Not Detected Parainfluenza 1 (PCR) Not Detected Parainfluenza 2 (PCR) Not Detected Parainfluenza 3 (PCR) Not Detected Parainfluenza 4 (PCR) Not Detected RSV (PCR) Not Detected Entero/Rhino (PCR) Detected A SARS-CoV-2 RNA (RT-PCR) Not Detected Medications Medications Current Medications Acetaminophen (Acetaminophen 325 Mg Tablet) 650 mg PO Q6H PRN PRN Reason: Headache/Pain, Scale 1-10 Al Hydroxide/Mg Hydroxide (Magnesium Hydrox/Alum Hydrox 30 Ml Oral.Susp) 30 ml PO Q6H PRN PRN Reason: Heartburn/Nausea Benztropine Mesylate (Benztropine Mesylate 0.5 Mg Tablet) 0.5 mg PO BID PRN PRN Reason: EPS Clonidine HCl (Clonidine Hcl 0.1 Mg Tablet) 0.3 mg PO BEDTIME [facility]; Protocol Last Admin: 06/02/25 21:10 Dose: 0.3 mg Clonidine HCl (Clonidine Hcl 0.1 Mg Tablet) 0.05 mg PO DAILY@1530 [facility]; Protocol Last Admin: 06/03/25 14:29 Dose: 0.05 mg Clonidine HCl (Clonidine Hcl 0.1 Mg Tablet) 0.1 mg PO DAILY [facility]; Protocol Last Admin: 06/03/25 08:44 Dose: 0.1 mg Escitalopram Oxalate (Escitalopram Oxalate 10 Mg Tablet) 10 mg PO BID [facility] Last Admin: 06/03/25 08:44 Dose: 10 mg Hydroxyzine HCl (Hydroxyzine Hcl 25 Mg Tablet) 25 mg PO Q6H PRN PRN Reason: mild anxiety Last Admin: 06/01/25 15:47 Dose: 25 mg Lorazepam (Lorazepam 0.5 Mg Tablet) 0.5 mg PO TID [facility] Last Admin: 06/03/25 14:29 Dose: 0.5 mg Magnesium Hydroxide (Milk Of Magnesia 30 Ml Oral.Susp) 30 ml PO DAILY PRN PRN Reason: Constipation Methylphenidate HCl (Methylphenidate Hcl 5 Mg Tablet) 15 mg PO DAILY@1500 [facility] Last Admin: 06/03/25 14:30 Dose: 15 mg Non-Formulary Medication (Methylphenidate Hcl [Concerta]) 72 mg PO DAILY [facility] Oxcarbazepine (Oxcarbazepine 300 Mg Tablet) 300 mg PO BID [facility] Last Admin: 06/03/25 08:44 Dose: 300 mg Risperidone (Risperidone 1 Mg Tablet) 1 mg PO TID [facility] Last Admin: 06/03/25 14:29 Dose: 1 mg Trazodone HCl (Trazodone Hcl 50 Mg Tablet) 50 mg PO BEDTIME MRX1 PRN PRN Reason: Insomnia Allergies Allergies Allergy/AdvReac Type Severity Reaction Status Date / Time dog dander (DOGS) Allergy Unknown UNK Verified 06/01/25 10:31 milk (MILK) Allergy Unknown UNK Verified 06/01/25 10:31 Assessment & Plan Assessment & Plan (1) Autism: Status: Acute Code(s): F84.0 - Autistic disorder (2) Intermittent explosive disorder: Status: Acute Code(s): F63.81 - Intermittent explosive disorder Plan HPI: Patient is a 24-year-old male with history of ASD, intermittent explosive disorder, who attends a day program, who presents for increasing dysregulated and aggressive behavior in the community. Patient is a limited historian with severe autism. He just keeps asking when he can go home. He acknowledged that he got angry at the the program. He said he does not know why accept that another person saying a song best with the best and he says he got mad. He said he did throw himself on the floor. Patient then just keeps asking when he can go home. He does say he likes the day program. He denies any SI or HI or AVH. jail program and research coordinator, Lauren talked with social security benefits interviewer She said this past week he started the day fine, happy and out of nowhere, had a moment where he was blankly staring and then he disrupted swearing, kicking, biting; they escorted him to quiet place but he was still wild and needed to be restrained; made verbal threats; they called 911 and patient attacked police and got restrained and brought to the hospital. Lauren says episodes can be brief or last for hours. 1. minor episodes 1-2x per week but patient is redirectable 2. major episode 1-2/month needing restraint she thinks these behaviors are worsening possibly due to multiple med changes starting this past summer; she also wonders if he is having possible seizures and his aggressive behaviors are part of being postictal... As often, he will get dysregulated after a moment where he is blankly staring. Culinary Instructor talked with patient's mother who visited on the unit: She says that his behaviors have been worsening over the past months and he has been brought to the emergency room numerous times; frequently gets discharge since whatever caused the dysregulation, resolves by the time he gets to the hospital and remain so (this was the case his last admission to in 2023). She agrees that there are numerous medication changes; she is not sure if that is what is contributing but despite the changes patient has become increasingly dysregulated. His episodes happen both at home and in the community and at the day program. She concurs that SOMETIMES episodes are preceded by him staring blankly for a few moments; but not always. And sometimes he will stare blankly and not get dysregulated. She agrees that he should be on a DDS unit. She is ambivalent about him staying here on the unit since the unit, knowing that he will have a very difficult time adjusting. She agrees with patient getting EEG which has been ordered Discussed medications with her and she agreed to the followin. Start Risperdal 1 mg t.i.d.. Patient has been on Haldol which was was recently decreased (due to sedation; he was getting a total daily dose of 15 mg, now down to 5 mg). Clearly not working anyway 2. Continue Trileptal which was started just a few weeks ago and titrated to 300 mg b.i.d. 3. Will continue Ativan 1 mg t.i.d. is supposed to be scheduled (would consider switching to clonazepam which is longer-acting) Relevant history: Dysregulation seemed to start coping years ago after his father moved out of the house and then . Since then patient's behaviors have been becoming increasingly challenging Formulation/clinical reasoning: Patient has autism; increasing episodes of behavioral disruption, agitation and aggression. Patient is very limited historian and can not discuss this. Per mom there have been numerous medication changes over the past months; she does not know them all, making it very difficult to know how to proceed. Also today is a Thursday, the week before Miranda and outpatient provider is only in her office on Wednesdays... What patient needs most is a DDS unit that can meet his needs more adequately and during which time the inpatient team can confer with the outpatient team. Culinary Instructor is concerned that M5 is inadequate to keep patient for much duration; patient's mother feels similarly. She agrees for him to remain the weekend. There is some correlation between patient staring blankly for few moments just prior to his outbursts; Culinary Instructor will order EEG to see if it can be helpful. Will DC Haldol which clearly has not been helping and start risperidone instead. Plan: CV Q 15 minute checks Ordered EEG Start risperidone 1 mg t.i.d. Continue Ativan 1 mg t.i.d. Continue Trileptal 300 mg b.i.d. (started a few weeks ago) -if it is possible to transfer patient from our unit to a DDS unit that would be best; otherwise will defer to patient's mother regarding discharge and taking him home 06/03: Laying in bed. keeping to self. Patient reports feeling okay today; he reports sleeping well last night. focused on discharge. Patient would like to know when he will be able to return home; pt was encouraged to speak with his primary team. he denies SI/HI/VH/AH. Continue tx plan. Patient educated on: diagnosis and medication risk/benefits Reason for continued inpatient stay Substantial Risk for: med/psych decompensation Time Spent With Patient Time: Total time managing care of this patient today __15__ minutes.
[2025-06-03 15:51] VITALS: PULSE 96
[2025-06-03 20:00] VITALS: BP 126/80; PULSE 90; RESP 18; TEMP 36.4; O2SAT 95
[2025-06-04 08:03] VITALS: BP 117/74; PULSE 96; RESP 18; TEMP 36.9; O2SAT 96
--- NOTE | 2025-06-04 10:49 | P.PNPSI_ITS ---
Subjective Subjective Date of Service: 06/04/25 Reason For Visit: Intermittent Explosive Disorder, Autism Interim History: Active on unit. attending groups. Patient reports feeling good today; he continues focused on discharge. He reports looking forward to visiting with his mother today. denies SI/HI/VH/AH. Continue tx plan. Medication Compliance: Yes Side effects from medications: No Attending Groups: Yes Mental Status Exam Mental Status Exam Patient Appearance: Appropriate Patient Orientation: Person, Place and Situation Level of Consciousness: Awake Patient Behavior: Appropriate and Cooperative Mood Description: Calm Affect Description: Calm Ability to Follow Directions: Good Speech Pattern: Clear Hallucinations: None Delusions: Not Present Thought Process: Intact Thought Content: positive for Intact Diagnostics Vital Signs (24Hr): Vital Signs - 24 hr 06/03/25 14:29 06/03/25 14:36 06/03/25 15:51 Temperature Pulse Rate 140 H 96 Respiratory Rate 18 Blood Pressure 138/96 H Pulse Oximetry 100 Oxygen Delivery Method Room Air 06/03/25 20:00 06/04/25 08:03 Temperature 97.5 F 98.5 F Pulse Rate 90 96 Respiratory Rate 18 18 Blood Pressure 126/80 117/74 Pulse Oximetry 95 96 Oxygen Delivery Method Room Air Room Air BMI result Body Mass Index 18.8 Labs 06/01/25 10:36 06/01/25 10:36 Labs: Laboratory Results - last 48 hr 06/02/25 09:30 Respiratory Panel [place] See Note Adenovirus (Rapid PCR) Not Detected B.pert (TEM-PCR) Not Detected B.parapertussis DNA PCR Not Detected C. pneumoniae DNA (PCR) Not Detected Coronavirus OC43 (PCR) Not Detected Coronavirus HKU1 (PCR) Not Detected Coronavirus 229E (PCR) Not Detected Coronavirus NL63 (PCR) Not Detected Human Metapneumovir PCR Not Detected Influenza A (RT-PCR) Not Detected Influenza A (H1) PCR Not Detected Influ A (H1/09) PCR Not Detected Influenza A (H3) PCR Not Detected Influenza B (RT-PCR) Not Detected M. pneumoniae (PCR) Not Detected Parainfluenza 1 (PCR) Not Detected Parainfluenza 2 (PCR) Not Detected Parainfluenza 3 (PCR) Not Detected Parainfluenza 4 (PCR) Not Detected RSV (PCR) Not Detected Entero/Rhino (PCR) Detected A SARS-CoV-2 RNA (RT-PCR) Not Detected Medications Medications Current Medications Acetaminophen (Acetaminophen 325 Mg Tablet) 650 mg PO Q6H PRN PRN Reason: Headache/Pain, Scale 1-10 Al Hydroxide/Mg Hydroxide (Magnesium Hydrox/Alum Hydrox 30 Ml Oral.Susp) 30 ml PO Q6H PRN PRN Reason: Heartburn/Nausea Benztropine Mesylate (Benztropine Mesylate 0.5 Mg Tablet) 0.5 mg PO BID PRN PRN Reason: EPS Clonidine HCl (Clonidine Hcl 0.1 Mg Tablet) 0.3 mg PO BEDTIME [facility]; Protocol Last Admin: 06/03/25 20:27 Dose: 0.3 mg Clonidine HCl (Clonidine Hcl 0.1 Mg Tablet) 0.05 mg PO DAILY@1530 [facility]; Protocol Last Admin: 06/03/25 14:29 Dose: 0.05 mg Clonidine HCl (Clonidine Hcl 0.1 Mg Tablet) 0.1 mg PO DAILY [facility]; Protocol Last Admin: 06/04/25 08:45 Dose: 0.1 mg Escitalopram Oxalate (Escitalopram Oxalate 10 Mg Tablet) 10 mg PO BID [facility] Last Admin: 06/04/25 08:46 Dose: 10 mg Hydroxyzine HCl (Hydroxyzine Hcl 25 Mg Tablet) 25 mg PO Q6H PRN PRN Reason: mild anxiety Last Admin: 06/01/25 15:47 Dose: 25 mg Lorazepam (Lorazepam 0.5 Mg Tablet) 0.5 mg PO TID [facility] Last Admin: 06/04/25 08:46 Dose: 0.5 mg Magnesium Hydroxide (Milk Of Magnesia 30 Ml Oral.Susp) 30 ml PO DAILY PRN PRN Reason: Constipation Methylphenidate HCl (Methylphenidate Hcl 5 Mg Tablet) 15 mg PO DAILY@1500 [facility] Last Admin: 06/03/25 14:30 Dose: 15 mg Non-Formulary Medication (Methylphenidate Hcl [Concerta]) 72 mg PO DAILY [facility] Oxcarbazepine (Oxcarbazepine 300 Mg Tablet) 300 mg PO BID [facility] Last Admin: 06/04/25 08:45 Dose: 300 mg Risperidone (Risperidone 1 Mg Tablet) 1 mg PO TID [facility] Last Admin: 06/04/25 08:45 Dose: 1 mg Trazodone HCl (Trazodone Hcl 50 Mg Tablet) 50 mg PO BEDTIME MRX1 PRN PRN Reason: Insomnia Allergies Allergies Allergy/AdvReac Type Severity Reaction Status Date / Time dog dander (DOGS) Allergy Unknown UNK Verified 06/01/25 10:31 milk (MILK) Allergy Unknown UNK Verified 06/01/25 10:31 Assessment & Plan Assessment & Plan (1) Autism: Status: Acute Code(s): F84.0 - Autistic disorder (2) Intermittent explosive disorder: Status: Acute Code(s): F63.81 - Intermittent explosive disorder Plan HPI: Patient is a 24-year-old male with history of ASD, intermittent explosive disorder, who attends a day program, who presents for increasing dysregulated and aggressive behavior in the community. Patient is a limited historian with severe autism. He just keeps asking when he can go home. He acknowledged that he got angry at the the program. He said he does not know why accept that another person saying a song best with the best and he says he got mad. He said he did throw himself on the floor. Patient then just keeps asking when he can go home. He does say he likes the day program. He denies any SI or HI or AVH. snf leadership program associate, Lauren talked with social security benefits interviewer She said this past week he started the day fine, happy and out of nowhere, had a moment where he was blankly staring and then he disrupted swearing, kicking, biting; they escorted him to quiet place but he was still wild and needed to be restrained; made verbal threats; they called 911 and patient attacked police and got restrained and brought to the hospital. Lauren says episodes can be brief or last for hours. 1. minor episodes 1-2x per week but patient is redirectable 2. major episode 1-2/month needing restraint she thinks these behaviors are worsening possibly due to multiple med changes starting this past summer; she also wonders if he is having possible seizures and his aggressive behaviors are part of being postictal... As often, he will get dysregulated after a moment where he is blankly staring. Terminal Operator talked with patient's mother who visited on the unit: She says that his behaviors have been worsening over the past months and he has been brought to the emergency room numerous times; frequently gets discharge since whatever caused the dysregulation, resolves by the time he gets to the hospital and remain so (this was the case his last admission to in 2023). She agrees that there are numerous medication changes; she is not sure if that is what is contributing but despite the changes patient has become increasingly dysregulated. His episodes happen both at home and in the community and at the day program. She concurs that SOMETIMES episodes are preceded by him staring blankly for a few moments; but not always. And sometimes he will stare blankly and not get dysregulated. She agrees that he should be on a DDS unit. She is ambivalent about him staying here on the unit since the unit, knowing that he will have a very difficult time adjusting. She agrees with patient getting EEG which has been ordered Discussed medications with her and she agreed to the followin. Start Risperdal 1 mg t.i.d.. Patient has been on Haldol which was was recently decreased (due to sedation; he was getting a total daily dose of 15 mg, now down to 5 mg). Clearly not working anyway 2. Continue Trileptal which was started just a few weeks ago and titrated to 300 mg b.i.d. 3. Will continue Ativan 1 mg t.i.d. is supposed to be scheduled (would consider switching to clonazepam which is longer-acting) Relevant history: Dysregulation seemed to start coping years ago after his father moved out of the house and then . Since then patient's behaviors have been becoming increasingly challenging Formulation/clinical reasoning: Patient has autism; increasing episodes of behavioral disruption, agitation and aggression. Patient is very limited historian and can not discuss this. Per mom there have been numerous medication changes over the past months; she does not know them all, making it very difficult to know how to proceed. Also today is a Thursday, the week before Miranda and outpatient provider is only in her office on Wednesdays... What patient needs most is a DDS unit that can meet his needs more adequately and during which time the inpatient team can confer with the outpatient team. Terminal Operator is concerned that is inadequate to keep patient for much duration; patient's mother feels similarly. She agrees for him to remain the weekend. There is some correlation between patient staring blankly for few moments just prior to his outbursts; Terminal Operator will order EEG to see if it can be helpful. Will DC Haldol which clearly has not been helping and start risperidone instead. Plan: CV Q 15 minute checks Ordered EEG Start risperidone 1 mg t.i.d. Continue Ativan 1 mg t.i.d. Continue Trileptal 300 mg b.i.d. (started a few weeks ago) -if it is possible to transfer patient from our unit to a DDS unit that would be best; otherwise will defer to patient's mother regarding discharge and taking him home 06/03: Laying in bed. keeping to self. Patient reports feeling okay today; he reports sleeping well last night. focused on discharge. Patient would like to know when he will be able to return home; pt was encouraged to speak with his primary team. he denies SI/HI/VH/AH. Continue tx plan. 06/04: continue tx plan. Patient educated on: diagnosis and medication risk/benefits Reason for continued inpatient stay Substantial Risk for: med/psych decompensation Time Spent With Patient Time: Total time managing care of this patient today _15___ minutes.
[2025-06-04 14:45] VITALS: BP 118/84; PULSE 120
--- NOTE | 2025-06-04 14:53 | PC.NURSE ---
Patient just complained of a worsening stuffy nose and some shortness of breath. Pulses have been elevated and is now 120 bpm. Alysha Argueta FREIGHT LOADER updated via [facility] [employer].
--- NOTE | 2025-06-04 15:25 | PC.NURSE ---
No new orders from Alysha Argueta CONSTRUCTION MILLWRIGHT today related to increased nasal congestion, slight shortness of breath and P120 bpm.
[2025-06-04 20:00] VITALS: BP 126/78; PULSE 112; RESP 20; TEMP 36.9; O2SAT 98
[2025-06-05 08:00] VITALS: BP 144/94; PULSE 115; TEMP 36.9; O2SAT 99
--- NOTE | 2025-06-05 10:12 | PM.PSYDC ---
DS: Providers Provider Date of admission: 06/01/25 15:30 Date of discharge: 06/05/25 Primary care physician: Unknown Physician Attending physician on admission: Héctor Sheikh Attending physician on discharge: Keya Bass DS: Diagnosis Discharge Diagnosis (1) Autism: Status: Acute (2) Intermittent explosive disorder: Status: Acute DS: Medications Discharge Medications Home Medications: Home Medications ?Medication ?Instructions ?Recorded ?Confirmed clonidine HCl 0.1 mg tablet 0.1 mg PO DAILY 02/19/21 06/01/25 escitalopram oxalate 5 mg tablet 10 mg PO BID 02/19/21 06/01/25 clonidine HCl 0.1 mg tablet 0.3 mg PO BEDTIME 12/31/23 06/01/25 methylphenidate HCl 10 mg tablet 15 mg PO DAILY@1500 12/31/23 06/01/25 methylphenidate HCl 36 mg 72 mg PO DAILY 12/31/23 06/01/25 tablet,extended release 24 hr (Concerta) clonidine HCl 0.1 mg tablet 0.05 mg PO DIRECTED 06/01/25 06/01/25 Previous Rx's ?Medication ?Instructions ?Recorded hydroxyzine HCl 25 mg tablet 25 mg PO TID PRN mild anxiety 4 06/05/25 days #30 tabs lorazepam 0.5 mg tablet 0.5 mg PO TID shaking/severe 06/05/25 anxiety 15 days #0 tabs oxcarbazepine 300 mg tablet 300 mg PO BID Mood 30 days #60 06/05/25 tabs risperidone 1 mg tablet 1 mg PO TID Mood 30 days #90 tabs 06/05/25 Mental Status Exam Mental Status Exam Narrative: Patient presents well-groomed, casually dressed. Affect is euthymic with restrictive range. Speech is clear and coherent. Thought process is linear and logical at baseline. Thought content is appropriate and relevant. Patient denies suicidal or homicidal ideation intent or plan. No overt psychotic symptoms elicited. Insight is fair Judgment is fair. Data Data Completed and Pending Completed studies during hospitalization [Text1]: 06/01/25 06/01/25 06/01/25 10:36 13:10 13:59 WBC 5.2 RBC 4.97 Hgb 13.8 L Hct 40.7 L MCV 81.9 MCH 27.8 MCHC 33.9 RDW 12.6 Plt Count 205 MPV 11.0 Immature Gran % (Auto) 0.2 Neut % (Auto) 65.9 Lymph % (Auto) 18.4 L Tyler % (Auto) 10.3 Eos % (Auto) 4.8 H Baso % (Auto) 0.4 Lymph # (Auto) 1.0 L Tyler # (Auto) 0.5 Eos # (Auto) 0.3 Baso # (Auto) 0.0 Abs Immat Gran (auto) 0.01 Absolute Neuts (auto) 3.4 Absolute Nucleated RBC 0.000 Nucleated RBC % (auto) 0.0 Sodium 138 Potassium 3.9 Chloride 103 Carbon Dioxide 27 Anion Gap 12 BUN 10 Creatinine 1.10 Estim Creat Clear Calc 84.4 Estimated GFR > 60 Random Glucose 88 Estimat Average Glucose Hemoglobin A1c % Calcium 9.8 Magnesium Total Bilirubin 0.7 AST 26 ALT 13 Alkaline Phosphatase 144 H Total Protein 7.7 Albumin 4.8 Triglycerides Cholesterol LDL Cholesterol, Calc HDL Cholesterol Vitamin B12 Folate TSH Free T4 Urine Color Yellow Urine Appearance Cloudy Urine pH 6.5 Ur Specific [place] <= 1.005 Urine Protein Negative Urine Glucose (UA) Negative Urine Ketones Negative Urine Blood Negative Urine Nitrite Negative Ur Leukocyte Esterase Negative Urine Opiates Screen Not Detected Ur Buprenorphine Scrn Not Detected Ur Oxycodone Screen Not Detected Urine Methadone Screen Not Detected Urine Fentanyl Screen Not Detected Ur Barbiturates Screen Not Detected Ur Phencyclidine Scrn Not Detected Ur Amphetamines Screen Not Detected U Benzodiazepines Scrn Not Detected Urine Cocaine Screen Not Detected U Marijuana (THC) Screen Not Detected Ethyl Alcohol < 10 Respiratory Panel [place] Adenovirus (Rapid PCR) B.pert (TEM-PCR) B.parapertussis DNA PCR C. pneumoniae DNA (PCR) Coronavirus OC43 (PCR) Coronavirus HKU1 (PCR) Coronavirus 229E (PCR) Coronavirus NL63 (PCR) Human Metapneumovir PCR Influenza A (RT-PCR) Influenza A (H1) PCR Influ A (H1/09) PCR Influenza A (H3) PCR Influenza Type A (PCR) NEGATIVE Influenza B (RT-PCR) Influenza Type B (PCR) NEGATIVE M. pneumoniae (PCR) Parainfluenza 1 (PCR) Parainfluenza 2 (PCR) Parainfluenza 3 (PCR) Parainfluenza 4 (PCR) RSV (PCR) RSV RNA Qual (PCR) NEGATIVE Entero/Rhino (PCR) SARS-CoV-2 RNA (RT-PCR) NEGATIVE 06/02/25 06/02/25 08:18 09:30 WBC RBC Hgb Hct MCV MCH MCHC RDW Plt Count MPV Immature Gran % (Auto) Neut % (Auto) Lymph % (Auto) [place] % (Auto) Eos % (Auto) Baso % (Auto) Lymph # (Auto) Tyler # (Auto) Eos # (Auto) Baso # (Auto) Abs Immat Gran (auto) Absolute Neuts (auto) Absolute Nucleated RBC Nucleated RBC % (auto) Sodium Potassium Chloride Carbon Dioxide Anion Gap BUN Creatinine Estim Creat Clear Calc Estimated GFR Random Glucose Estimat Average Glucose 111 Hemoglobin A1c % 5.5 Calcium Magnesium 2.1 Total Bilirubin AST ALT Alkaline Phosphatase Total Protein Albumin Triglycerides 102 Cholesterol 197 LDL Cholesterol, Calc 119 H HDL Cholesterol 58 Vitamin B12 297 Folate 11.9 TSH 1.05 Free T4 0.89 Urine Color Urine Appearance Urine pH Ur Specific [place] Urine Protein Urine Glucose (UA) Urine Ketones Urine Blood Urine Nitrite Ur Leukocyte Esterase Urine Opiates Screen Ur Buprenorphine Scrn Ur Oxycodone Screen Urine Methadone Screen Urine Fentanyl Screen Ur Barbiturates Screen Ur Phencyclidine Scrn Ur Amphetamines Screen U Benzodiazepines Scrn Urine Cocaine Screen U Marijuana (THC) Screen Ethyl Alcohol Respiratory Panel [place] See Note Adenovirus (Rapid PCR) Not Detected B.pert (TEM-PCR) Not Detected B.parapertussis DNA PCR Not Detected C. pneumoniae DNA (PCR) Not Detected Coronavirus OC43 (PCR) Not Detected Coronavirus HKU1 (PCR) Not Detected Coronavirus 229E (PCR) Not Detected Coronavirus NL63 (PCR) Not Detected Human Metapneumovir PCR Not Detected Influenza A (RT-PCR) Not Detected Influenza A (H1) PCR Not Detected Influ A (H1/09) PCR Not Detected Influenza A (H3) PCR Not Detected Influenza Type A (PCR) Influenza B (RT-PCR) Not Detected Influenza Type B (PCR) M. pneumoniae (PCR) Not Detected Parainfluenza 1 (PCR) Not Detected Parainfluenza 2 (PCR) Not Detected Parainfluenza 3 (PCR) Not Detected Parainfluenza 4 (PCR) Not Detected RSV (PCR) Not Detected RSV RNA Qual (PCR) Entero/Rhino (PCR) Detected A SARS-CoV-2 RNA (RT-PCR) Not Detected DS: Summary Hospital Course Hospital Course: Per admitting provider note: HPI: Patient is a 24-year-old male with history of ASD, intermittent explosive disorder, who attends a day program, who presents for increasing dysregulated and aggressive behavior in the community. Patient is a limited historian with severe autism. He just keeps asking when he can go home. He acknowledged that he got angry at the the program. He said he does not know why accept that another person saying a song best with the best and he says he got mad. He said he did throw himself on the floor. Patient then just keeps asking when he can go home. He does say he likes the day program. He denies any SI or HI or AVH. [facility] chair, Lauren talked with secondary social studies teacher She said this past week he started the day fine, happy and out of nowhere, had a moment where he was blankly staring and then he disrupted swearing, kicking, biting; they escorted him to quiet place but he was still wild and needed to be restrained; made verbal threats; they called 911 and patient attacked police and got restrained and brought to the hospital. Lauren says episodes can be brief or last for hours. 1. minor episodes 1-2x per week but patient is redirectable 2. major episode 1-2/month needing restraint she thinks these behaviors are worsening possibly due to multiple med changes starting this past summer; she also wonders if he is having possible seizures and his aggressive behaviors are part of being postictal... As often, he will get dysregulated after a moment where he is blankly staring. Carrot Grader Inspector talked with patient's mother who visited on the unit: She says that his behaviors have been worsening over the past months and he has been brought to the emergency room numerous times; frequently gets discharge since whatever caused the dysregulation, resolves by the time he gets to the hospital and remain so (this was the case his last admission to in 2023). She agrees that there are numerous medication changes; she is not sure if that is what is contributing but despite the changes patient has become increasingly dysregulated. His episodes happen both at home and in the community and at the day program. She concurs that SOMETIMES episodes are preceded by him staring blankly for a few moments; but not always. And sometimes he will stare blankly and not get dysregulated. She agrees that he should be on a DDS unit. She is ambivalent about him staying here on the unit since the unit, knowing that he will have a very difficult time adjusting. She agrees with patient getting EEG which has been ordered Discussed medications with her and she agreed to the followin. Start Risperdal 1 mg t.i.d.. Patient has been on Haldol which was was recently decreased (due to sedation; he was getting a total daily dose of 15 mg, now down to 5 mg). Clearly not working anyway 2. Continue Trileptal which was started just a few weeks ago and titrated to 300 mg b.i.d. 3. Will continue Ativan 1 mg t.i.d. is supposed to be scheduled (would consider switching to clonazepam which is longer-acting) Relevant history: Dysregulation seemed to start coping years ago after his father moved out of the house and then . Since then patient's behaviors have been becoming increasingly challenging Formulation/clinical reasoning: Patient has autism; increasing episodes of behavioral disruption, agitation and aggression. Patient is very limited historian and can not discuss this. Per mom there have been numerous medication changes over the past months; she does not know them all, making it very difficult to know how to proceed. Also today is a Thursday, the week before Miranda and outpatient provider is only in her office on Wednesdays... What patient needs most is a DDS unit that can meet his needs more adequately and during which time the inpatient team can confer with the outpatient team. Carrot Grader Inspector is concerned that M5 is inadequate to keep patient for much duration; patient's mother feels similarly. She agrees for him to remain the weekend. There is some correlation between patient staring blankly for few moments just prior to his outbursts; Carrot Grader Inspector will order EEG to see if it can be helpful. Will DC Haldol which clearly has not been helping and start risperidone instead. Plan: CV Q 15 minute checks Ordered EEG Start risperidone 1 mg t.i.d. Continue Ativan 1 mg t.i.d. Continue Trileptal 300 mg b.i.d. (started a few weeks ago) -if it is possible to transfer patient from our unit to a DDS unit that would be best; otherwise will defer to patient's mother regarding discharge and taking him home 06/03: Laying in bed. keeping to self. Patient reports feeling okay today; he reports sleeping well last night. focused on discharge. Patient would like to know when he will be able to return home; pt was encouraged to speak with his primary team. he denies SI/HI/VH/AH. Continue tx plan. 06/04: continue tx plan. 06/05/25: This typewriter repairer met with patient prior to discharge, denies safety concerns. Denies angry irritable mood. Denies depression or anxiety. Exciting to be home with family. No behavior issues since admitted to unit. Compliant with meds. Improving in mood and disregulated mood. No angry outburst. He has poor insight of treatment and medication as at baseline with autic dx. This provider called mom to verify preferred pharmacy. Per mom, he has enough supply at home and only need to send home more with medication that got changes. Mom will pick patient up by 1130. No side effects noted. Haldol was discontinued duing hosptilazation. Time spent discussing smoking cessation with patient: 3 to 10 minutes Status at Discharge Cognitive/behavioral status at discharge: CONDITION ON DISCHARGE: CURRENT STATUS IT RELATES TO ADMISSION CRITERIA: Stable, improved. Improvements in depression, anxiety, and suicidal ideation. Improvements in sleep, energy, and appetite. and no hallucination or paranoia/delusional thought. Functional status at discharge: independent ambulation Overall status at discharge: patient is back to baseline Time Spent with Patient Time attestation: Total time managing care of this patient today ____ minutes. Time spent: Greater than 30 minutes Discharge Plan Discharge Anticipated Discharge Date/Time: 06/05/25 11:30 Patient Disposition: Home, Self-Care Discharge Diagnosis: Intermittent explosive Disorder, Autism Referrals: [facility] [Other] - 06/21/25 9:40 am Referral Note: Follow up medication management appointment with Tammy Valentino [facility] [Other] - 06/21/25 4:00 pm Referral Note: Follow up appointment with your therapist, [facility] [Other] - 1 Week Referral Note: Please follow-up with your DDS transplant case manager once you leave. Physician,Maddie J [Primary Care Provider, Medical] - 1 Week Referral Note: Please follow up with PCP after discharge. No appointment made due to no release signed. Discharge Medications: New hydroxyzine HCl 25 mg Tablet 25 mg PO TID PRN (Reason: mild anxiety) 4 Days Qty: 30 0RF oxcarbazepine 300 mg Tablet 300 mg PO BID 30 Days Qty: 60 0RF risperidone 1 mg Tablet 1 mg PO TID 30 Days Qty: 90 0RF Continued clonidine HCl 0.1 mg tablet 0.1 mg PO DAILY escitalopram oxalate 5 mg tablet 10 mg PO BID clonidine HCl 0.1 mg Tablet 0.3 mg PO BEDTIME methylphenidate HCl 10 mg tablet 15 mg PO DAILY@1500 methylphenidate HCl [Concerta] 36 mg tablet extended release 24hr 72 mg PO DAILY clonidine HCl 0.1 mg Tablet 0.05 mg PO DIRECTED Rx Instructions: Take daily at 1530 Changed lorazepam 0.5 mg tablet 0.5 mg PO TID 15 Days Qty: 0 0RF Discontinued haloperidol 5 mg tablet 2.5 mg PO BID Discharge Orders: Discharge Order (Routine); Ordered 06/05/25 Ordered By: Keya Bass Diet: Regular diet Activity on Discharge: No Restrictions Stand Alone Forms: Patient Portal Discharge page, Community Support Print Language: Polish Care Plan Goals: Maintain mood and safe behaviors Take medications as prescribed Continue to pursue sobriety Practice coping skills Continue with outpatient providers and reach out to them as needed Health Concerns: Mood stability and behaviors Using coping skills to cope with mood Plan of Treatment: Follow up with your PCP, psychiatric provider and other outpatient providers regarding above concerns Take medications as prescribed Assessment: Assessment: Risk assessment at time of discharge: Patient was interviewed prior to discharge and found to be fully oriented and without any SI or HI. Patient has improved insight and judgment and wants to continue treatment. Patient is not in imminent risk of harm to self or others and has a safety plan that includes presenting to the closest ER or calling 911 if feeling unsafe. Patient has been observed closely by nursing and unit staff throughout admission; patient has not engaged in any behaviors that suggest dangerousness to self or others and has demonstrated appropriate behaviors and impulse control Discharge Date/Time: 06/05/25 11:35
== END 2025-06-05 11:35 | disposition home or self-care (01) | DRG 758 ==
LOC: HO.ED 11:34 → HO.PM5 15:44
PROVIDERS: Admitting Provider Clinical Nurse Specialist Psychiatric/Mental Health, Adult; Emergency Provider Emergency Medicine Emergency Medical Services; Visit Provider Clinical Nurse Specialist Psychiatric/Mental Health, Adult
DX: F63.81 Intermittent explosive disorder (principal); F84.0 Autistic disorder; Z20.822 Contact with and (suspected) exposure to COVID-19; Z79.899 Other long term (current) drug therapy
CPT/HCPCS: 36415; 80053; 80061; 80307; 81003; 82607; 82746; 83036; 83735; 84439; 84443; 85025; 87633; 87637; 93005; 95816; 99285

== ENCOUNTER → 2025-06-01 11:49 | Outpatient (BNV) | payer OTHER, SELFPAY | PROVIDERS: Emergency Provider Emergency Medicine Emergency Medical Services; Visit Provider Internal Medicine Cardiovascular Disease | DX: Z13.6 Encounter for screening for cardiovascular disorders (principal) | CPT/HCPCS: 93010 ==

== ENCOUNTER 2025-06-01 15:30 | Outpatient (BNV) | payer OTHER, SELFPAY | END 2025-06-02 15:00 | PROVIDERS: Admitting Provider Clinical Nurse Specialist Psychiatric/Mental Health, Adult; Emergency Provider Emergency Medicine Emergency Medical Services; Visit Provider Psychiatry & Neurology Neurology | DX: R56.9 Unspecified convulsions (principal) | CPT/HCPCS: 95816 ==

== ENCOUNTER → 2025-06-01 15:30 | Outpatient (BNV) | payer OTHER, SELFPAY | PROVIDERS: Admitting Provider Clinical Nurse Specialist Psychiatric/Mental Health, Adult; Emergency Provider Emergency Medicine Emergency Medical Services; Visit Provider Psychiatry & Neurology Psychiatry | DX: F84.0 Autistic disorder (principal); F63.81 Intermittent explosive disorder | CPT/HCPCS: 99222; 99232; 99238 ==

== ENCOUNTER → 2025-06-01 15:30 | Outpatient (BNV) | payer OTHER, SELFPAY | PROVIDERS: Admitting Provider Clinical Nurse Specialist Psychiatric/Mental Health, Adult; Emergency Provider Emergency Medicine Emergency Medical Services; Visit Provider Nurse Practitioner Family | DX: F63.81 Intermittent explosive disorder (principal) | CPT/HCPCS: 99221 ==